=== PATIENT | female | born 1965 | race Caucasian/White ===

== ENCOUNTER 2023-04-16 06:47 | Outpatient (OUT) | payer BC, SELFPAY ==
--- NOTE | 2023-04-16 06:54 | MR_ITS ---
The [address] [address] Patient Name: MAT COOK MRN: [facility]:[id number] date: 1965 Sex: F Assigned Patient Location: MRI Current Patient Location: Accession/Order Number: [id number] Exam Date: 04/16/2023 07:05 Report Date: 04/17/2023 13:57 At the request of: MAGDA TAYLOR Procedure: MR head/brain wo/w con EXAM: MR head/brain wo/w con HISTORY: Acute intractable headache R51.9, Right leg weakness R29.898 COMPARISON: None. TECHNIQUE: Multiplanar, multisequence MR imaging of the head was performed prior to and following the administration of 13 mL of Dotarem contrast intravenously. FINDINGS: No restricted diffusion. No acute hemorrhage, mass effect, midline shift or extraaxial fluid collection. No ventriculomegaly. Expected flow voids are noted within the intracranial internal carotid, vertebral and basilar arteries. The cerebellopontine angles and internal auditory canals are unremarkable. Mild scattered foci of increased FLAIR signal are seen within the subcortical white matter. The pituitary gland and midline structures are unremarkable. Bone marrow signal is within normal limits. The orbits and globes are unremarkable. There has been bilateral cataract eye surgery. Mucosal thickening noted within the right sphenoid sinus and inferior right maxillary sinus. The mastoid air cells are unremarkable No abnormal enhancement. IMPRESSION: 1. Mild nonspecific FLAIR signal abnormalities of the subcortical white matter, compatible with chronic small vessel ischemic changes. A demyelinating disorder cannot be excluded. 2. No acute infarct, mass effect or abnormal enhancement. 3. Mucosal thickening in the right sphenoid sinus and inferior right maxillary sinus. Electronically authenticated by: KALE GIBBONS Date: 04/17/2023 13:57
== END 2023-04-16 06:48 | disposition home or self-care (01) ==
LOC: MRI 06:50
PROVIDERS: PCP Family Medicine; Visit Provider Family Medicine
DX: R51.9 Headache, unspecified (principal); R29.898 Other symptoms and signs involving the musculoskeletal system
CPT/HCPCS: 70553; A9575

== ENCOUNTER 2024-03-14 07:33 | Outpatient (OUT) | payer BC, SELFPAY ==
--- NOTE | 2024-03-14 07:35 | MM_ITS ---
Patient Name: MAT COOK MR#: [id number] : 1965 Exam Date: 03/14/2024 Ordering Doctor: DR Ariana Devlin M.D. RADIOLOGY REPORT PROCEDURE: MM TOMOSYNTHESIS SCREENING BI COMPARISON: MG MAMM SCREEN 3D WILIAM CAD, 03/03/2022. MG MAMM SCREEN WILIAM W CAD, 10/08/2020. MG MAMM SCREEN WILIAM W CAD, 10/04/2018. MG MAMM WILIAM SCRN W CAD DIG, 09/21/2015. INDICATIONS: Screening Calculator Name NCI Breast Cancer Risk Assessment Tool 5 Year Breast Cancer Risk 5.00% Lifetime Breast Cancer Risk 28.90% Personal Breast Cancer No Personal Ovarian Cancer No Treatments None Family Cancers Sister with kidney cancer at age 35; Aunt-maternal with breast cancer at age ~74; Sister with breast cancer at age 45; Mother with breast cancer at age 68; Aunt-maternal with breast cancer at age 74. LOCATION: The [facility] BREAST COMPOSITION: The breasts are heterogeneously dense,which may obscure small masses. FINDINGS: DIAGNOSTIC CATEGORY 2--BENIGN FINDING: RIGHT BREAST: No significant suspicious finding. Scattered benign-appearing calcifications are present. No significant change has occurred. LEFT BREAST: No significant suspicious finding. Scattered benign-appearing calcifications are present. No significant change has occurred. RECOMMENDATIONS: ROUTINE MAMMOGRAM AND CLINICAL EVALUATION IN 12 MONTHS. PLEASE NOTE: A NORMAL MAMMOGRAM DOES NOT EXCLUDE THE POSSIBILITY OF BREAST CANCER. A CLINICALLY SUSPICIOUS PALPABLE LUMP SHOULD BE BIOPSIED. Dictated by: Gallo Pimentel M.D. on 03/14/2024 at 08:35 Approved by: Gallo Pimentel M.D. on 03/14/2024 at 08:41
== END 2024-03-14 07:34 | disposition home or self-care (01) ==
LOC: MAMMO 07:33
PROVIDERS: PCP Family Medicine; Visit Provider Family Medicine
DX: Z12.31 Encounter for screening mammogram for malignant neoplasm of breast (principal); Z80.51 Family history of malignant neoplasm of kidney; Z80.3 Family history of malignant neoplasm of breast
CPT/HCPCS: 77063; 77067

== ENCOUNTER 2024-09-25 10:35 | Outpatient (OUT) | payer BC, SELFPAY ==
[2024-09-25 11:00] LABS: Basophils Absolute Auto 0.1 10^3/uL (0.0-0.1); Basophils Percent Auto 1.1 % (0.2-2.0); Eosinophils Absolute Auto 0.2 10^3/uL (0.0-0.7); Eosinophils Percent Auto 2.7 % (0.9-7.0); Hematocrit 42.7 % (36.0-48.0); Hemoglobin 13.9 g/dL (12.0-16.0); Immature Granulocytes Abs Auto 0.02 10^3/uL (0.00-0.03); Immature Granulocytes Pct Auto 0.2 % (0.0-0.5); Lymphocytes Percent Auto 23.4 % (20.5-60.0); Mean Corpuscular HGB Conc 32.6 g/dL (29.9-35.2); Mean Corpuscular Hemoglobin 29.4 pg (26.7-34.0); Mean Corpuscular Volume 90.5 fL (81.0-99.0); Monocytes Absolute Auto 0.9 10^3/uL (0.3-0.8); Neutrophils Absolute Auto 5.4 10^3/uL (1.4-6.5); Neutrophils Percent Auto 62.6 % (43.0-75.0); Platelet Count 302 10^3/uL (150-450); Red Blood Count 4.72 10^6/uL (4.20-5.40); Red Cell Distribution Width 12.7 % (11.0-15.0); White Blood Count 8.6 10^3/uL (4.0-11.0)
[2024-09-25 11:04] LABS: Creatinine Urine Random 340.03 mg/dL (20.00-300.00); Microalbum Creatinine Ratio Ur 4.4 mg/g (0.0-29.9); Microalbumin Urine Random 1.5 mg/dL (<=30.0)
[2024-09-25 11:09] LABS: Estimated Average Glucose 117 mg/dL; Glycohemoglobin A1C 5.7 % (4.5-6.2)
[2024-09-25 11:24] LABS: Alanine Aminotransferase 34 U/L (14-59); Albumin Globulin Ratio 0.9; Albumin Level 3.8 g/dL (3.4-5.0); Alkaline Phosphatase 116 U/L (46-116); Anion Gap 14.1; Aspartate Amino Transferase 21 U/L (15-37); BUN Creatinine Ratio 14.3; Bilirubin Total 0.5 mg/dL (0.2-1.0); Calcium 9.1 mg/dL (8.5-10.1); Chloride 105 mmol/L (98-107); Chol HDL Ratio 4.2; Cholesterol 275 mg/dL (<=200); Estimated GFR (African America >60 (>=60 mL/min/1.73m^2); Estimated GFR (Non-African Ame 54 (>=60 mL/min/1.73m^2); Glucose 101 mg/dL (74-106); HDL Cholesterol 65 mg/dL (40-60); Potassium 4.1 mmol/L (3.5-5.1); Sodium 144 mmol/L (136-145); Thyroid Stimulating Hormone 1.059 uIU/mL (0.358-3.740); Total Protein 7.8 g/dL (6.4-8.2); Triglycerides 178 mg/dL (<=150); VLDL CHOLESTEROL 35.6 mg/dL
== END 2024-09-25 10:36 | disposition home or self-care (01) ==
LOC: LAB 10:36
PROVIDERS: PCP Family Medicine; Visit Provider Family Medicine
DX: Z00.00 Encounter for general adult medical examination without abnormal findings (principal); E11.65 Type 2 diabetes mellitus with hyperglycemia
CPT/HCPCS: 36415; 80053; 80061; 82043; 82570; 83036; 84443; 85025

== ENCOUNTER 2024-12-31 10:43 | Outpatient (OUT) | payer BC, SELFPAY ==
--- NOTE | 2024-12-31 10:50 | XR_ITS ---
The [address] [address] Patient Name: MAT COOK MRN: [id number] date: 1965 Sex: F Assigned Patient Location: [facility] Current Patient Location: [facility] Accession/Order Number: [id number] Exam Date: 12/31/2024 11:19 Report Date: 12/31/2024 11:23 At the request of: MAGDA TAYLOR MD Procedure: XR abdomen 1V SINGLE VIEW ABDOMEN COMPARISON: None CLINICAL DATA: Left flank pain and hematuria. Supine views of the abdomen and pelvis were obtained. There is air and stool within the colon. There is no dilated small bowel. Both kidneys are obscured, greater on the right. There are no suspect radiopaque renal stones. There is asymmetry at the tip of the transverse process of L3 on the left. It is uncertain if this could be an overlying proximal ureteral stone. There are multiple calcifications within the pelvis on both sides. These could be phleboliths however a ureteral stone is difficult to exclude without comparisons. There are no soft tissue masses. There is minor degenerative change at the spine and SI joints. There are clips from prior cholecystectomy. XR/XR abdomen 1V IMPRESSION: CANNOT EXCLUDE PROXIMAL OR DISTAL LEFT URETERAL STONES. FOLLOW-UP WITH ULTRASOUND OR CT COULD BE CONSIDERED. Impression dictated by: Evangelina Martin M.D.12/31/2024 11:23 AM Dictation Location: [place] [address] Electronically authenticated by: [id number] Y Date: 12/31/2024 11:23
--- OUTSIDE RECORDS SUMMARY | 2024-12-31 10:59 | XMS_ITS | CCD ---
Author Organization [facility] Care Team Providers Care Custody Officer Name Role Phone PHYSICIAN, DEFAULT Admitting Unavailable PHYSICIAN, DEFAULT Attending Unavailable ARIANA TAYLOR Primary Care Unavailable KING VASQUEZ Attending Unavailable ARIANA TAYLOR Primary Care Physician CLAUDIA, DR ARIANA Orantes Admitting Unavailable TAYLOR, DR ARIANA Orantes Attending Unavailable CLAUDIA, DR ARIANA Orantes Primary Care Unavailable Zieblinda, Gallo Consulting Unavailable CLAUDIA, DR ARIANA Orantes Consulting Unavailable CLAUDIA, DR ARIANA Orantes Admitting Unavailable TAYLOR, DR ARIANA Orantes Attending Unavailable CLAUDIA, DR ARIANA Orantes Primary Care Unavailable OROGRANDE, DR KALE Cheung Consulting Unavailable CLAUDIA, DR ARIANA Orantes Consulting Unavailable OLLIE, DR DAMON Admitting Unavailable OLLIE, DR DAMON Attending Unavailable TAYLOR, DR ARIANA Orantes Primary Care Unavailable Zieblinda, Gallo Consulting Unavailable OLLIE, DR DAMON Consulting Unavailable CLAUDIA, DR ARIANA Orantes Admitting Unavailable TAYLOR, DR ARIANA Orantes Attending Unavailable CLAUDIA, DR ARIANA Orantes Primary Care Unavailable CLAUDIA, DR ARIANA Orantes Consulting Unavailable Ariana Taylor Unavailable Ariana Taylor MD Primary Care Provider [phone] [place] Attending UnavailARIANA [place] Primary Care Unavailable PRITESH DEL VALLE Attending Unavailable Allergies Allergy Classification Reported Allergen(s) Allergy Type Date of Onset Reaction(s) Facility (14 sources) Desvenlafaxine; Translations: [desvenlafaxine ] Drug Allergy 4 Unknown (qualifier value) [facility] (14 sources) metFORMIN; Translations: [metformin] Drug Allergy 4 Unknown (qualifier value) [facility] (4 sources) patient allergy list reviewed by nurse or physicia Propensity to adverse reactions 7 Comment:Done Lomography Other (4 sources) Allergies Reconciled Propensity to adverse reactions Unknown Lomography Other Medications Current Medications Medication Drug Class(es) Dates Sig (Normalized) Sig (Original) 0.5 ML tirzepatide 10 MG/ML Auto-Injector [Mounjaro] (11 sources) inject 0.5 mL by subcutaneous injection every week Mounjaro 5 MG/0.5ML INJECT 0.5 ML UNDER THE SKIN ONCE A WEEK for 84 Active inject 0.5 mL by sub cutaneous injection every week Mounjaro 5 MG/0.5ML INJECT 0.5 ML (5MG) UNDER THE SKIN ONCE A WEEK for 84 Active inject 0.5 mL by sub cutaneous injection every week Mounjaro 5 MG/0.5ML 1/2 (ONE HALF) ML Subcutaneous WEEKLY for 90 days Active acetaminophen 325 mg / HYDROcodone bitartrate 5 mg oral tablet (15 sources) Opioid Agonist Start: 03-25-2024 take 1 tablet by mouth every six hours as needed Hydrocodone-Acetaminophen Active 1 TAB PO Every 6 hours 18 05March 25, 2024 FreeTextSi tablet as needed Orally every 6 hrs; Note: Source Status: Start; Refills: 0; Qty: 28 Tablet; Provider: Claudia Orantes Start: 03-12-2024 End: 03-25-2024 take 1 tablet by mouth every six hours as needed Hydrocodone-Acetaminophen Discontinued 1 TAB PO Every 6 hours March 12, 2024 12:00am March 25, 2024 11:25am FreeTextSi tablet as needed Orally every 6 hrs; Note: Source Status: Start; Refills: 0; Qty: 28 Tablet; Provider: Claudia Orantes Start: 04-10-2023 take 1 tablet by nemesio th every six hours HYDROcodone-Acetaminophen 5-325 MG 1 tab let as needed Orally every 6 hrs for 7 days Mar, Active Start: 12-07-2022 take 1 tablet by nemesio th every eight hours HYDROcodone-Acetaminophen 5-325 MG 1 tab let as needed Orally every 8 hrs for 7 days Nov, Active Comment on above: Take 1 tablet by nemesio th every 8 hours as needed for pain. amitriptyline hydrochloride 25 mg oral tablet (1 source) Tricyclic Antidepressant Start: 02-25-20 21 take 1 mg by mouth once daily at bedtime amitriptyline 25 mg Tab mg tab(s), Oral, Once a day (at bedtime), Refills(s) 0 Start Date: 12/16/20 Status: Ordered atorvastatin 20 mg oral tablet (6 sources) HMG-CoA Reductase Inhibitor Start: 12-16-19 21 take 1 tablet by mouth once daily atorvastatin 20 mg Tab 20 mg = 1 tab(s), Oral, Daily, # 30 tab(s), Refills(s) 0 Start Date: 12/16/20 Status: Ordered 24 hr buPROPion hydrochloride 300 mg extended release oral tablet (4 sources) Aminoketone Start: 12-05-19 20 take 1 tablet by mouth once daily Wellbutrin SR 150 mg Tab-ER 150 mg = 1 tab(s), Oral, Daily, Depression Start Date: 12/05/19 Status: Ordered Start: 07-29-2009 bupropion hcl( WELLBUTRIN XL 300 MG 24 HR TAB) Take one(1) tablet daily. 0 07/29/2009 Active Comment on above: Take one(1) tablet d aily. 0.5 ml dulaglutide 1.5 mg/ml auto-injector (1 source) GLP-1 Receptor Agonist Start: 12-16-19 Trulicity Pen 0.75 mg/0.5 mL subcutaneous solution SubCutaneous, qWeek, Refills(s) 0 Start Date: 12/16/20 Status: Ordered FreeStyle Domenica 2 Stuart - (5 sources) FreeStyle Domenica 2 Stuart - use as directed for 28 Active FreeStyle Domenica 2 Sensor - (5 sources) FreeStyle Domenica 2 Sensor - as directed Active lisdexamfetamine dimesylate 50 mg oral capsule (18 sources) Central Nervous System Stimulant Start: 03-25-20 24 take 50 mg by mouth once daily Lisdexamfetamine Active 50 MG PO Daily March 25, 2024 Start: 12-31-2023 End: 03-25-2024 take 40 mg by mouth once daily Lisdexamfetamine Discontinued 40 MG PO Daily March 05, 2024 March 25, 2024 11:25am Start: 11-09-2023 take 1 capsule by [facility] every twenty-four hours Vyvanse 40 MG 1 capsule in the morning Orally Once a day for 30 days Oct, Active Start: 09-27-2023 take 1 capsule by mo uth every twenty-four hours Vyvanse 40 MG 1 capsule in the morning Orally Once a day for 30 days Sep, Active Start: 08-21-2023 take 1 capsule by mo uth every twenty-four hours Vyvanse 40 MG 1 capsule in the morning Orally Once a day for 30 days Jul, Active Start: 06-04-2023 take 1 capsule by mo uth every twenty-four hours Vyvanse 40 MG 1 capsule in the morning Orally Once a day for 30 days May, Active Start: 04-18-2023 take 1 capsule by mo uth once daily in the morning VYVANSE 40 mg capsule TAKE 1 CAPSULE BY MOUTH once a day IN THE MORNING FOR 30 DAYS 04/18/2023 Active Start: 03-13-2023 take 1 capsule by mo uth every twenty-four hours Vyvanse 40 MG 1 capsule in the morning Orally Once a day for 30 days February, Active Start: 02-01-2023 take 1 capsule by mo uth every twenty-four hours Vyvanse 40 MG 1 capsule in the morning Orally Once a day for 30 days Jan, Active Start: 12-28-2022 take 1 capsule by mo uth every twenty-four hours Vyvanse 40 MG 1 capsule in the morning Orally Once a day for 30 days Dec, Active Start: 11-21-2022 take 1 capsule by mo uth every twenty-four hours Vyvanse 40 MG 1 capsule in the morning Orally Once a day for 30 days Oct, Active Comment on above: TAKE 1 CAPSULE BY MO UTH once a day IN THE MORNING FOR 30 DAYS meloxicam 15 mg oral tablet (18 sources) Nonsteroidal Anti-inflammatory Drug Start: 01-03-2024 End: 01-03-2024 take 15 mg by mouth once daily Meloxicam Active 15 MG PO Daily January 03, 2024 9:55am Start: 12-18-2023 End: 01-03-2024 take 1 tablet by mouth once daily Meloxicam Discontinued 0 .ROUTE .COMPLEX December 18, 2023 2:12pm January 03, 2024 9:42am TAKE 1 TABLET BY MOUTH ONCE DAILY Start: 12-18-2023 End: 12-18-2023 take 15 mg by mouth once daily Meloxicam Discontinued 15 MG PO Daily December 18, 2023 1:00am December 18, 2023 2:12pm Start: 12-05-2019 take 1 tablet by nemesio th once daily Mobic 15 mg Tab 15 mg = 1 tab(s), Oral, Daily, Arthritis Start Date: 12/05/19 Status: Ordered Comment on above: Take 15 mg by mouth. mounjaro 5 mg/0.5ml solution pen-injector (1 source) inject 0.5 mL by subcutaneous injection every week Mounjaro 5 MG/0.5ML INJECT 0.5 ML UNDER THE SKIN ONCE A WEEK for 84 Active predniSONE 20 mg oral tablet (5 sources) Start: 3 take 2 tablets by mouth every twenty-four hours predniSONE 20 MG 2 tablets Orally Once a day for 5 days Nov, Active pregabalin 75 mg oral capsule (5 sources) Start: 3 take 1 capsule by mouth every twelve hours Lyrica 75 MG 1 capsule Orally Twice a day for 14 days Nov, Active Tirzepatide (2 sources) Start: 4 inject 0.5 mL by subcutaneous injection every week Tirzepatide (Mounjaro) 5 mg/0.5 mL pen injector Active 0 .ROUTE .COMPLEX 6 January 03, 2024 12:04pm INJECT 0.5 ML UNDER THE SKIN ONCE A WEEK Start: 01-03-2024 End: 01-03-2024 Tirzepatide (Mounjaro) 5 mg/ 0.5 mL pen injector Discontinued 5 MG SUBCUT every week January 03, 2024 12:00am January 03, 2024 12:04pm tiZANidine 4 mg oral tablet (15 sources) Central alpha-2 Adrenergic Agonist Start: 03-12-2024 End: 03-25-2024 take 1 tablet by mouth three times daily as needed Tizanidine Active 4 MG PO Three times daily March 25, 2024 11:10am FreeTextSi tablet as needed Orally Three times a day; Note: Source Status: Taking; Qty: 30 Tablet; Provider: Claudia Orantes Start: 12-07-2022 take 1 tablet by nemesio th every eight hours tiZANidine HCl 4 MG 1 tablet as needed Orally Three times a day for 10 days Nov, Active take 1 tablet by nemesio th every six hours as needed tiZANidine (ZANAFLEX) 4 mg tablet Take 4 mg by mouth every 6 hours as needed. 0 Active Comment on above: Take 4 mg by mouth e very 6 hours as needed. valACYclovir 1000 mg oral tablet (5 sources) Herpesvirus Nucleoside Analog DNA Polymerase Inhibitor, Herpes Simplex Virus Nucleoside Analog DNA Polymerase Inhibitor, Herpes Zoster Virus Nucleoside Analog DNA Polymerase Inhibitor Start: 12-11-2022 take 1 tablet by mouth every eight hours Valtrex 1 GM 1 tablet Orally tid for 7 days Nov, Active Completed/Discontinued Medications Medication Drug Class(es) Dates Sig (Normalized) Sig (Original) metFORMIN hydrochloride 500 mg oral tablet (2 sources) Biguanide Start: 07-29-2009 METFORMIN 500 MG TAB Take two(2) tablets daily. 0 07/29/2009 Active Comment on above: Take two(2) tablets daily. modafinil 200 mg oral tablet (2 sources) Sympathomimetic-l kushal Agent Start: 07-29-2009 modafinil(PROVIGIL 200 MG TAB) once daily 0 07/29/2009 Active Comment on above: once daily tirzepatide (MOUNJARO) 2.5 mg/0.5 mL pen injector (1 source) tirzepatide (MOUNJARO) 2.5 mg/0.5 mL pen injector Problems Active Problems Problem Classification Problem Date Documented Date Episodic/Chronic Anxiety disorders (13 sources) Anxiety; Translations: [Mixed anxiety and depressive disorder] 12-16-2020 Chronic Attention-deficit, conduct, and disruptive behavior disorders (1 source) Attention deficit hyperactivity disorder, predominantly inattentive type 12-16-2020 Chronic Attention-deficit, conduct, and disruptive behavior disorders (1 source) Adult attention deficit hyperactivity disorder ; Translations: [Attention-deficit hyperactivity disorder, unspecified type] 12-31-2023 Chronic Attention-deficit, conduct, and disruptive behavior disorders (1 source) Attention-deficit hyperactivity disorder, unspecified type; Translations: [Attention deficit disorder with hyperactivity] 03-25-2024 Chronic Diabetes mellitus with complications (20 sources) Type 2 diabetes mellitus with hyperglycemia; Translations: [Hyperglycemia due to type 2 diabetes mellitus] Onset: 01-31-2018 Chronic Diabetes mellitus without complication (13 sources) Type 2 diabetes mellitus; Translations: [Type 2 diabetes mellitus with hyperglycemia] 12-16-2020 Chronic Disorders usually diagnosed in infancy, childhood, or adolescence (20 sources) Other specified behavioral and emotional disorders with onset usually occurring in childhood and adolescence; Translations: [Behavioral and emotional disorder with onset in childhood] Chronic Gout and other crystal arthropathies (17 sources) Gout; Translations: [Gout, unspecified] Onset: 11-04-2018 12-16-2020 Chronic Mood disorders (20 sources) Depressive disorder; Translations: [Major depression, single episode] Onset: 11-12-2013 12-16-2020 Chronic Other circulatory disease (4 sources) Elevated blood-pressure reading without diagnosis of hypertension; Translations: [Elevated blood-pressure reading, without diagnosis of hypertension] Episodic Other connective tissue disease (2 sources) Other symptoms and signs involving the musculoskeletal system Episodic Other liver diseases (12 sources) Elevated liver enzymes level; Translations: [Abnormal levels of other serum enzymes] Episodic Other lower respiratory disease (1 source) Dyspnea on exertion 12-16-2020 Episodic Other lower respiratory disease (16 sources) Dyspnea; Translations: [Shortness of breath] Episodic Other nervous system disorders (1 source) Neuropathy of lower limb; Translations: [Lesion of lateral popliteal nerve, right lower limb] 05-08-2023 Chronic Other non-traumatic joint disorders (1 source) Hip pain 12-16-2020 Episodic Other non-traumatic joint disorders (20 sources) Arthralgia of the lower leg; Translations: [Pain in left knee] Onset: 07-02-2017 Episodic Other nutritional; endocrine; and metabolic disorders (2 sources) Morbid obesity; Translations: [Morbid (severe) obesity due to excess calories] Onset: 07-29-2009 07-29-2009 Chronic Other nutritional; endocrine; and metabolic disorders (8 sources) Obesity; Translations: [Obesity, unspecified] Onset: 03-18-2015 Chronic Other nutritional; endocrine; and metabolic disorders (8 sources) Body mass index 40+ - severely obese; Translations: [Body mass index (BMI) 40.0-44.9, adult] Onset: 01-10-2018 Chronic Other nutritional; endocrine; and metabolic disorders (16 sources) Obese class II; Translations: [Body mass index 39.0-39.9, adult] Onset: 01-10-2018 Chronic Other nutritional; endocrine; and metabolic disorders (4 sources) Body mass index 30+ - obesity; Translations: [Body mass index 36.0-36.9, adult] Onset: 03-27-2019 Chronic Other nutritional; endocrine; and metabolic disorders (4 sources) Obese class I; Translations: [Body mass index (BMI) 33.0-33.9, adult] Chronic Other screening for suspected conditions (not mental disorders or infectious disease) (7 sources) Liver enzymes abnormal; Translations: [Encounter for screening for osteoporosis] Onset: 03-03-2022 12-16-2020 Episodic Residual codes; unclassified (17 sources) Insomnia; Translations: [Insomnia, unspecified] Onset: 03-02-2016 12-16-2020 Episodic Skin and subcutaneous tissue infections (20 sources) Pilonidal cyst; Translations: [Pilonidal cyst without abscess] Episodic Spondylosis; intervertebral disc disorders; other back problems (2 sources) Cervical arthritis; Translations: [Unspecified inflammatory spondylopathy, cervical region] 03-25-2024 Chronic Viral infection (14 sources) Postherpetic neuralgia; Translations: [Other postherpetic nervous system involvement] Episodic Past or Other Problems Problem Classification Problem Date Documented Da te Episodic/Chronic Cardiac dysrhythmias (4 sources) Palpitations; Translations: [Palpitations] Onset: 11-04-2018 Episodic Diabetes mellitus without complication (4 sources) Hyperglycemia; Translations: [Hyperglycemia, unspecified] Onset: 03-01-2015 Episodic Headache; including migraine (1 source) Headache; including migraine Nonspecific chest pain (4 sources) Chest pain; Translations: [Chest pain, unspecified] Onset: 09-13-2015 Episodic Other connective tissue disease (4 sources) Spasm; Translations: [Spasm of muscle] Onset: 03-27-2019 Episodic Other non-traumatic joint disorders (4 sources) Arthralgia of the pelvic region and thigh; Translations: [Pain in joint, pelvic region and thigh] Onset: 03-02-2016 Episodic Other nutritional; endocrine; and metabolic disorders (4 sources) Body mass index 25-29 - overweight; Translations: [Body mass index 27.0-27.9, adult] Onset: 01-10-2018 Episodic Other skin disorders (4 sources) Alopecia; Translations: [Nonscarring hair loss, unspecified] Onset: 10-16-2018 Episodic Residual codes; unclassified (4 sources) Other specified health status; Translations: [OTHER SPECIFIED HEALTH STATUS] Onset: 04-28-2022 Episodic Residual codes; unclassified (1 source) Family history of malignant neoplasm of breast; Translations: [FAMILY HX MALIG NEOPLASM OF BREAST] Onset: 03-08-2022 Episodic Residual codes; unclassified (1 source) Family history of malignant neoplasm of kidney; Translations: [FAM HX MALIGNANT NEOPLASM KIDNEY] Onset: 03-08-2022 Episodic Spondylosis; intervertebral disc disorders; other back problems (10 sources) Radiculopathy, cervical region; Translations: [Cervicalgia] Onset: 02-23-2017 Episodic Unclassified (1 source) Frequent headaches R51.9 Results Test Name Value Interpretation Reference Range Facility [facility]ET[facility] ([id number]) 1965 F Date Time Provider Department 05/09/23 [facility] During your visit today, we recorded the following information about you: Lilian Skinner RN 05/09/2023 9:22 AM Signed Office notes faxed to pts [facility] Dr Ariana Taylor [phone] Lilian Skinner RN [facility] [place] Allergies As of Date: 05/09/2023 (No Known Allergies) Date Reviewed: 05/07/2023 Reviewed by: Lisa Choi Ma - Fully Assessed Reason for Visit: Patient Update [[id number]] Prescriptions as of 05/11/2023 - meloxicam (MOBIC) 15 mg tablet Take 15 mg by mouth. - tirzepatide (MOUNJARO) 2.5 mg/0.5 mL pen injector - VYVANSE 40 mg capsule TAKE 1 CAPSULE BY MOUTH once a day IN THE MORNING FOR 30 DAYS - tiZANidine (ZANAFLEX) 4 mg tablet Take 4 mg by mouth every 6 hours as needed. - HYDROcodone-acetamin ophen (NORCO) 5-325 mg per tablet Take 1 tablet by mouth every 8 hours as needed for pain. - bupropion hcl(WELLBUTRIN XL 300 MG 24 HR TAB) Take one(1) tablet daily. - modafinil(PROVIGIL 200 MG TAB) once daily - METFORMIN 500 MG TAB Take two(2) tablets daily. Problem List As Of Date 05/09/2023 Noted Resolved Morbid Obesity [E66.01] 07/29/2009 Encounter Status:Closed by LILIAN SKINNER on 05/11/23 [facility] 05-07-2023 CNOV Office Visit (CHADS) KETURAH COOK ([id number]) 1965 F Date Time Provider Department 05/07/23 10:00 AM [facility] During your visit today, we recorded the following information about you: Pulse Blood pressure Weight Height 88/minute 132/82 68.9 kg 1.676 m Shad Rouse MD 05/08/2023 6:26 AM Signed Impression: This is Ms. Keturah Joseph Rockham, a 57 year old female who presents to the [facility] clinic with the chief complaint of right leg numbness, sensation of leg weakness. Approximately 8-week history of right lower extremity numbness. Also notes right foot drop. Tripping. No major low back pain issues. No sciatica history. Upper extremities are fine. Nothing like this before. Approximately 75 pound weight loss since July 2022. Does engage in habitual leg crossing. On exam, has numbness over the lateral aspect of the right lower extremity distal to the knee. Weakness of dorsiflexion and ankle eversion is noted on the right. Unable to heel walk on the right. Impression is for peroneal neuropathy, right leg. Plan: - Recommend discussion with primary care about physical therapy. - We will tentatively plan for watchful waiting. Avoid leg crossing. - Could consider EMG for prognostication purposes. - Reach out with any questions or concerns. MyChart is an excellent way to get ahold of our team. Shad Rouse MD Staff, [facility] [place] HPI: This is Ms. Keturah Cook, a 57 year old female who presents to the [facility] clinic with the chief complaint of right leg numbness, sensation of leg weakness. Review: Numbness right foot and leg. Abnormal MRI brain. MRI brain completed 04/16/2023 Report scanned into our system 1. Mild nonspecific FLAIR signal abnormalities of the subcortical white matter, compatible with chronic small vessel ischemic changes. Demyelinating disorder cannot be excluded. 2. No acute infarct, mass effect or abnormal enhancement. 3. Mucosal thickening in the right sphenoid sinus and inferior right maxillary sinus. CC: 2 month history of right leg numbness Both legs feel weak (quiver) Today: 2 month history of right leg numbness Both legs feel weak (quiver) Also right foot drop Trips, no falling Just noticed this the last few months Noticed with the numbness Also For 1 year ball of foot numb Has been overweight Recently with weight loss No major low back pain issues No sciatica Arms are fine No arm weakness that she notices No arm numbness or tingling Nothing like this before Weakness gets worse over the course of the day Better in the AM when rested Significant weight loss since July 2022 227 > 152 Was 257 several years ago Crosses her legs most of the time Prefers the right, does switch it up No history of weakness No history of numbness Cataract surgery OU 2019, uses readers No clear optic neuritis history clinically Struggles with heat, done Works less physical job Reports bladder urgency that comes and goes Past history per chart review includes: Past medical history, problem list: Diabetes Past surgical history: Hysterectomy, cholecystectomy Family history: Social history: Non-smoker No alcohol OBJECTIVE: PHYSICAL EXAM: Neurological: Mental Status: Alert. Speech fluent. Cogent. Responds appropriately. Cranial Nerves: CNII: Visual sneed intact. No red desaturation. CNIII, IV, : Pupils are reactive to light. No RAPD. Eyes cross midline. CN V: Facial sensation intact bilaterally to touch. CN VII: Smile is symmetric. CN VIII: Hearing intact to finger rub bilaterally. CN IX: No hypophonia. Motor: Bulk is normal in the upper and lower extremities. Tone is normal in the upper and lower extremities. Individual muscle group testing: Right Left Shoulder abduction 5 5 Elbow flexion 5 5 Elbow extension 5 5 Wrist extension 5 5 Wrist flexion Finger extension 5 5 Distal finger flexion 5 5 Thumb abduction Hip flexion 5 5 Knee extension Approx 5 Approx 5- to 5 Knee flexion Approx 5 5-? Dorsiflexion 3- 5 Plantarflexion 5 5 Ankle inversion Approx 5 5 Ankle eversion 4+ 5 Toe walks. Reflexes: R L Biceps 2 1-2 Patellar 2 2 Ankle Tr? 1 Coordination: FNF intact bilaterally. Sensation: Intact to sharp in the distal upper and lower extremities. Some numbness right lateral calf. Rhomberg negative. Gait: Stands with arms crossed. Ambulates easily in the clinic wade. Normal, narrow-based gait. Able to tandem walk. Less arm swing on right. Turns easily. Hops on left foot, right foot perhaps less stable. Toe walks, right foot less stable. Cannot heel walk on the right. This note was partially created using voice recognition software and is inhere (more content not included)... [facility] KET[facility] C[facility] ([id number]) 1965 F Date Time Provider Department 04/27/23 [facility] During your visit today, we recorded the following information about you: Jersey Caro F 04/27/2023 11:54 AM Signed Received fax from [facility] with a MRI Brain report dated 04/16/23. Initial appointment with provider is scheduled for 05/07/23. Scanned report into [employer]. Allergies As of Date: 04/27/2023 (No Known Allergies) Date Reviewed: 07/29/2009 Reviewed by: Latia Mckenzie Reason for Visit: Received Outside Medical Records [[id number]] Prescriptions as of 07/05/2023 - meloxicam (MOBIC) 15 mg tablet Take 15 mg by mouth. - tirzepatide (MOUNJARO) 2.5 mg/0.5 mL pen injector - VYVANSE 40 mg capsule TAKE 1 CAPSULE BY MOUTH once a day IN THE MORNING FOR 30 DAYS - tiZANidine (ZANAFLEX) 4 mg tablet Take 4 mg by mouth every 6 hours as needed. - HYDROcodone-acetamin ophen (NORCO) 5-325 mg per tablet Take 1 tablet by mouth every 8 hours as needed for pain. - bupropion hcl(WELLBUTRIN XL 300 MG 24 HR TAB) Take one(1) tablet daily. - modafinil(PROVIGIL 200 MG TAB) once daily - METFORMIN 500 MG TAB Take two(2) tablets daily. Problem List As Of Date 04/27/2023 Noted Resolved Morbid Obesity [E66.01] 07/29/2009 Encounter Status:Closed by JERSEY CARO on 07/05/23 Normal [facility] XR CSPINE 2_3 VIEWSon 2022 XR CSPINE 2_3 VIEWS EXAMINATION: XR CSPINE 2_3 VIEWS HISTORY: Cervical radiculopathy ; neck and left arm pain for one month; no known injury COMPARISON: No relevant comparison available. FINDINGS: BONES: Reversal normal lordotic curvature. Mild grade 1 anterior listhesis of C3 on 4, C4-C5. Mild grade 1 retrolisthesis of C5 on C6. No fracture or bone lesion. Moderate degenerative facet arthropathy at most levels. DISC SPACES: Mild narrowing C5-C6. PARASPINOUS: Negative. No paraspinous abnormality is seen. OTHER: Negative. IMPRESSION: 1. No appreciable acute abnormality. 2. Overall moderate degenerative changes of cervical spine, predominantly involving degenerative changes of the facet joints. Consider MRI for further evaluation. Electronically authenticated by: GALLO GUPTA Date: 2022-12-08 09:38 Normal [facility] NICOTINE METABOLITESon 11-25 Cotinine <1.0 Normal [facility] Comment on above: Result Comment: This test was developed and its performance characteristics determined by [facility]. It has not been cleared or approved by the Food and Drug Administration. Cotinine levels greater than 20.0 are consistent with the use of tobacco or tobacco cessation products. Performed By: #### N ICTBLD #### [facility] [address] [place] [address] Dr. Deepti Smith Nicotine <1.0 Normal [facility] Comment on above: Result Comment: This test was developed and its performance characteristics determined by [facility]. It has not been cleared or approved by the Food and Drug Administration. Nicotine levels greater than 2.0 are consistent with the use of tobacco or tobacco cessation products. Performed By: #### N ICTBLD #### [facility] [address] [place] [address] Dr. Deepti Smith GLYCOHEMOGLOBIN A1Con 2022 ADA RECOMMENDATION SEE BELOW Normal [facility] Comment on above: Result Comment: ADA RECOMMENDED LIMIT 4.0 - 6.0 ADA THERAPEUTIC TARGET < 7.0 ACTION SUGGESTED > 7.0 Performed By: #### A 1C #### [facility] [address] [place] [address] Dr. Deepti Smith Glucose [Mass/Vol] 111 mg/dL Normal [facility] Comment on above: Performed By: #### A 1C #### [facility] [address] [place] [address] Dr. Deepti Smith HbA1c (Bld) [Mass fraction] 5.5 % Normal 4.5-6.2 [facility] Comment on above: Performed By: #### A 1C #### [facility] [address] [place] [address] Dr. Deepti Smith LIPID PROFILEon 11-18-2022 CHOL-HDL RATIO NORM SEE BELOW Normal [facility] Comment on above: Result Comment: 3.3 - 4.4 LOW RISK 4.4 - 7.1 AVERAGE RISK 7.1 - 11.0 MODERATE RISK >11.0 HIGH RISK Performed By: #### L IPID #### [facility] [address] [place] [address] Dr. Deepti Smith Cholesterol [Mass/Vol] 183 mg/dL Normal <=200 [facility] Comment on above: Performed By: #### L IPID #### [facility] [address] [address] [address] Deepti Smith Cholesterol in HDL [Mass/Vol] 45 mg/dL Normal 40-60 [facility] Comment on above: Performed By: #### L IPID #### [facility] [address] [address] [address] Deepti Smith Cholesterol in LDL [Mass/Vol] 115.8 mg/dL Normal [facility] Comment on above: Performed By: #### L IPID #### [facility] [address] [address] [address] Deepti Smith Cholesterol.total/Ch olesterol in HDL [Mass ratio] 4.1 {ratio} Normal [facility] Comment on above: Performed By: #### L IPID #### [facility] [address] [address] [address] Deepti Smith HDL NORMAL > or = 60 mg/dl - LOW CARDIOVASCULAR RISK <40 mg/dl - HIGH CARDIOVASCULAR RISK Normal [facility] Comment on above: Performed By: #### L IPID #### [facility] [address] [address] [address] Deepti Smith LDL CALC NORMAL SEE BELOW Normal [facility] Comment on above: Result Comment: <100 mg/dl OPTIMAL 100 - 129 mg/dl NEAR OR ABOVE OPTIMAL 130 - 159 mg/dl BORDERLINE HIGH 160 - 189 mg/dl HIGH >190 mg/dl VERY HIGH Performed By: #### L IPID #### [facility] [address] [address] [address] Deepti Smith Triglyceride [Mass/Vol] 111 mg/dL Normal <=150 [facility] Comment on above: Performed By: #### L IPID #### [facility] [address] [address] [address] Deepti Smith VLDL CALC 22.2 mg/dL Normal [facility] Comment on above: Performed By: #### L IPID #### [facility] [address] [address] [address] Deepti Smith CALCIUMon 04-28-2022 Calcium [Mass/Vol] 9.0 mg/dL Normal 8.5-10.1 [facility] Comment on above: Performed By: #### LUCY LEAL #### [facility] [address] [place] [address] Dr. Deepti Smith CREATININEon 04-28-2022 Creatinine [Mass/Vol] 0.81 mg/dL Normal 0.55-1.02 [facility] Comment on above: Performed By: #### Jose DOMINGUEZ CA #### [facility] [address] [place] [address] Dr. Deepti Smith EGFR-AF TRISTANIAN >60 Normal >=60 [facility] Comment on above: Performed By: #### LUCY LEAL #### [facility] [address] [place] [address] Dr. Deepti Smith EGFR-NON AF TRISTANIAN >60 Normal >=60 [facility] Comment on above: Performed By: #### LUCY LEAL #### [facility] [address] [place] [address] Dr. Deepti Smith VITAMIN D 25 OHon 04-28-2022 VIT D 25-OH 47.4 ng/mL Normal [facility] Comment on above: Performed By: #### Skye ITAD #### [facility] [address] [place] [address] Dr. Deepti Smith VIT D RANGES SEE BELOW Normal [facility] Comment on above: Result Comment: <20 ng/mL Vit D deficient 20 - <30 ng/mL Vit D insufficient 30 - 100 ng/mL Vit D sufficient >100 ng/mL Potential Toxicity Performed By: #### V ITAD #### [facility] [address] [place] [address] Dr. Deepti Smith XR DEXA BONE DENSITYon 04-28 XR DEXA BONE DENSITY EXAMINATION: XR DEX A BONE DENSITY, 04/28/2022 8:54 AM EDT HISTORY: Patient status finding COMPARISON: None. TECHNIQUE: Dual-energy X-ray absorptiometry (DEXA) bone density study performed for the axial skeleton. FINDINGS: SPINE ANALYSIS: Average bone mineral density is 1.452 g/cm2. T-score (standard deviation relative to young adult mean): 2.3 . HIP ANALYSIS: Lowest bone mineral density is within the left femoral neck, 1.052 g/cm2. T-score (standard deviation relative to young adult mean): 0.1 . IMPRESSION: [employer] Classification: Normal - Low Fracture Risk Electronically authenticated by: GALLO GUPTA Date: 2022-04-28 16:[address] [facility] MAMM SCREEN 3D WILIAM CADon 03-03-2022 MG MAMM SCREEN 3D WILIAM CAD Patient: KETURAH COOK Exam Date: 03/03/2022 : 1965 Gender:F Ordering : DR ARIANA TAYLOR M.D. Admission #: [id number] Family : Order #: [id number] CLICK HERE TO VIEW EXAM RADIOLOGY REPORT PROCEDURE: MAMMOGRAM SCREENING 3D BILATERAL CAD COMPARISON: MG MAMM SCREEN WILIAM W CAD, 10/08/2020. MG MAMM SCREEN WILIAM W CAD, 10/04/2018. INDICATIONS: Screening mammography Calculator Name NCI Breast Cancer Risk Assessment Tool 5 Year Breast Cancer Risk 4.60% Lifetime Breast Cancer Risk 29.90% Personal Breast Cancer No Personal Ovarian Cancer No Treatments None Family Cancers Sister with kidney cancer at age 35; Aunt-maternal with breast cancer at age 74; Sister with breast cancer at age 45; Mother with breast cancer at age 68; Aunt-maternal with breast cancer at age 74. LOCATION: [facility] BREAST COMPOSITION: Heterogeneously dense, which may obscure small masses. FINDINGS: DIAGNOSTIC CATEGORY 2--BENIGN FINDING. NO CHANGE FROM COMPARISON. Scattered benign-appearing nodules are present. Scattered benign-appearing calcifications are present. Scattered benign-appearing lymph nodes are present. RIGHT BREAST: No significant suspicious finding. LEFT BREAST: No significant suspicious finding. RECOMMENDATIONS: ROUTINE MAMMOGRAM AND CLINICAL EVALUATION IN 12 MONTHS. PLEASE NOTE: A NORMAL MAMMOGRAM DOES NOT EXCLUDE THE POSSIBILITY OF BREAST CANCER. A CLINICALLY SUSPICIOUS PALPABLE LUMP SHOULD BE BIOPSIED. Dictated by: Kale Gonzalez MD on 03/03/2022 at 13:46 Approved by: Kale Gonzalez MD on 03/03/2022 at 13:48 Normal [facility] Vaginitis/Vaginosis, DNA Pro beon 02-13-2022 Rox sp rRNA Probe Ql (Vag fld) Positive Abnormal Negative [facility] Comment on above: Performed By: #### [id number] #### [facility] [address] [place] [address] G. vaginalis rRNA Probe Ql (Genital specimen) Negative Invalid Interpretation Code Negative [facility] Comment on above: Performed By: #### [id number] #### [facility] [address] [place] [address] T. vaginalis rRNA Probe Ql (Genital specimen) Negative Invalid Interpretation Code Negative [facility] Comment on above: Result Comment: A du plicate report has been generated due to demographic update of the patient's Date of , Age, Gender, and/or Specimen Date. Please review patient results, reference intervals, and calculated results that may have been affected by this change. Performed at: [facility] [id number] PhD Cyn Koo Performed By: #### 3 [id number] #### [facility] [address] [place] [address] Physician Orderon 02-09-2022 Physician Order [id number] #1.00CD:127 Normal [facility] Physician Orderon 02-08-2022 Physician Order [id number] #1.00CD:127 Normal [facility] Vital Signs Date Time Vital Sign Value Performing Clinician Facility 03-25-2024 [id number] Body height 167.64 cm [facility] 03-25-2024 10:54-0400 Body mass index (BMI) [Ratio] 30.7 kg/m2 [facility] 03-25-2024 10:54040 Body weight 86.18 kg [facility] 03-25-2024 10:54-0400 Diastolic blood pressure 80 mm[Hg] [facility] 03-25-2024 10:54-0400 Heart rate 92 /min [facility] 03-25-2024 10:54-0400 Systolic blood pressure 130 mm[Hg] [facility] 05-07-2023 09:48-0400 Body height 167.6 cm Shad Rouse MD Work Phone: [facility] 05-07-2023 09:48-0400 Body weight 68.95 kg Shad Rouse MD Work Phone: [facility] 05-07-2023 09:48-0400 Diastolic blood pressure 82 mm[Hg] Shad Rouse MD Work Phone: [facility] 05-07-2023 09:48-0400 Heart rate 88 /min Shad Rouse MD Work Phone: [facility] 05-07-2023 09:48-0400 SaO2% (BldA) [Mass fraction] 100 % Shad Rouse MD Work Phone: [facility] 05-07-2023 09:48-0400 Systolic blood pressure 132 mm[Hg] Shad Rouse MD Work Phone: [facility] 04-10-2023 10:15-0400 Body height 167.64 cm Ariana Taylor Other [facility] Other 04-10-2023 10:15-0400 Body mass index (BMI) [Ratio] 24.05 kg/m2 Ariana Taylor Other [facility] Other 04-10-2023 10:15-0400 Body weight 67.59 kg Ariana Taylor Other [facility] Other 04-10-2023 10:15-0400 Diastolic blood pressure 78 mm[Hg] Ariana Taylor Other [facility] Other 04-10-2023 10:15-0400 Systolic blood pressure 119 mm[Hg] Ariana Taylor Other [facility] Other 12-11-2022 16:00-0500 Body height 167.64 cm Ariana Taylor Other [facility] Other 12-11-2022 16:00-0500 Body mass index (BMI) [Ratio] 30.18 kg/m2 Ariana Taylor Other [facility] Other 12-11-2022 16:00-0500 Body weight 84.82 kg Ariana Taylor Other [facility] Other 12-11-2022 16:00-0500 Diastolic blood pressure 80 mm[Hg] Ariana Taylor Other [facility] Other 12-11-2022 16:00-0500 SaO2% (BldA) [Mass fraction] 98 % Ariana Taylor Other [facility] Other 12-11-2022 16:00-0500 Systolic blood pressure 126 mm[Hg] Ariana Taylor Other [facility] Other 12-07-2022 15:45-0500 Body height 167.64 cm Ariana Taylor Other [facility] Other 12-07-2022 15:45-0500 Body mass index (BMI) [Ratio] 30.18 kg/m2 Ariana Taylor Other [facility] Other 12-07-2022 15:45-0500 Body weight 84.82 kg Ariana Taylor Other [facility] Other 12-07-2022 15:45-0500 Diastolic blood pressure 80 mm[Hg] Ariana Taylor Other [facility] Other 12-07-2022 15:45-0500 SaO2% (BldA) [Mass fraction] 97 % Ariana Taylor Other [facility] Other 12-07-2022 15:45-0500 Systolic blood pressure 122 mm[Hg] Ariana Claudia Other [facility] Other Encounters Encounter Date Encounter Type Care Provider Facility Start: 03-25-2024 End: 03-25-2024 ambulatory [facility] Work Phone: Start: 03-25-2024 End: 03-25-2024 Patient encounter procedure [facility] Work Phone: Start: 12-31-2023 Non-patient / Non-visit [facility] Work Phone: Start: 11-09-2023 End: 11-09-2023 ambulatory Ariana Taylor Other [facility] Other Start: 11-09-2023 Telephone encounter Ariana Claudia [facility] Start: 09-27-2023 End: 09-27-2023 ambulatory Ariana Claudia Other [facility] Other Start: 09-27-2023 Telephone encounter Ariana Claudia [facility] Start: 09-04-2023 End: 09-04-2023 ambulatory PRITESH DEL VALLE Not Available Start: 08-21-2023 End: 08-21-2023 ambulatory Ariana Taylor Other [facility] Other Start: 08-21-2023 Telephone encounter Ariana Taylor [facility] Start: 06-04-2023 End: 06-04-2023 ambulatory Ariana Taylor Other [facility] Other Start: 06-04-2023 Telephone encounter Ariana Claudia [facility] Start: 05-07-2023 End: 05-07-2023 ambulatory SHAD ROUSE Facility:[facility] Start: 05-07-2023 End: 05-07-2023 Patient encounter procedure Shad Rouse MD Work Phone: Neurology Comment on above: Peroneal neuropathy, right (Primary Dx) Start: 04-27-2023 Telephone encounter Shad Rouse MD Work Phone: Neurology Comment on above: [facility]ceived [facility] Start: 04-23-2023 End: 04-23-2023 ambulatory Ariana Taylor Other [facility] Other Start: 04-23-2023 Telephone encounter Ariana Taylor [facility] Start: 04-18-2023 End: 04-18-2023 ambulatory Ariana Taylor Other [facility] Other Start: 04-18-2023 Telephone encounter Ariana Taylor [facility] Start: 04-10-2023 End: 04-10-2023 ambulatory Ariana Taylor Other [facility] Other Start: 04-10-2023 Office outpatient vi sit 15 minutes Ariana Taylor [facility] Start: 02-01-2023 End: 02-01-2023 ambulatory Ariana Taylor Other [facility] Other Start: 02-01-2023 Telephone encounter Ariana Taylor [facility] Start: 12-11-2022 End: 12-11-2022 ambulatory Ariana Taylor Other [facility] Other Start: 12-11-2022 Office outpatient vi sit 15 minutes Ariana Taylor [facility] Start: 12-11-2022 Telephone encounter Ariana Taylor [facility] Start: 12-07-2022 End: 12-08-[address] ARIANA TAYLOR Facility: Start: 12-07-2022 Office outpatient vi sit 15 minutes Ariana Taylor [facility] Start: 11-28-2022 End: 11-28-2022 ambulatory Ariana Taylor Other [facility] Other Start: 11-28-2022 Telephone encounter Ariana Taylor [facility] Start: 11-21-2022 Encounter for genera l adult medical examination without abnormal findings DR ARIANA TAYLOR [facility] Start: 11-18-2022 End: 11-19-[address] ARIANA TAYLOR Facility:[facility] Start: 11-18-2022 End: 11-19-2022 Encounter for general adult medical examination without abnormal findings DR ARIANA TAYLOR Facility:[facility] Start: 09-26-2022 Adult health examination Ariana Taylor Other [facility] Other Start: 04-28-2022 End: 04-29-[address] NELSON LEVIN Facility:[facility] Start: 03-03-2022 End: 03-04-[address] ARIANA TAYLOR Facility:[facility] Start: 02-09-2022 End: 02-09-2022 Lab Drop off Jose J Peoples [facility] Start: 01-28-2022 End: 01-28-2022 Emergency department patient visit ARIANA TAYLOR [facility] Start: 11-07-2018 End: 11-08-2018 Patient encounter procedure DEFAULT PHYSICIAN Facility:[facility] Procedures Date Procedure Procedure Detail Performing Clinician Start: 12-29-2019 Cataract extraction and insertion of intraocular lens Jose J Peoples Comment on above: left Start: 12-08-2019 Cataract extraction and insertion of intraocular lens Jose J Peoples Comment on above: right Start: 08-26-2015 Screening for malign ant neoplasm of breast Ariana Taylor Other Start: 01-09-2014 Laboratory test resu lt abnormal Ariana Taylor Other Start: 07-15-2009 Lipid 1996 panel - S leny or Plasma Shad Rouse MD Work Phone: Plan of Treatment Date Care Activity Detail Author Start: 06-22-2023 Influenza vaccination C [facility] Start: 10-22-2022 DEPRESSION ASSESSMENT DEPRESSION ASS [facility] Start: 09-22-2021 COVID-19 VACCINE (4 - Pfizer series) COVID-19 VACCINE (4 - Pfizer series) [facility] Start: 2017 SHINGRIX VACCINE (1 of 2) SHINGRIX V ACCINE (1 of 2) [facility] Start: 07-15-2014 Lipid 1996 panel - S leny or Plasma Lipid Screening [facility] Start: 07-15-2014 LIPID SCREEN LIPID SCREEN [facility] Start: 2012 COLOGUARD (FIT-DNA) COLOGUARD (FIT-D NA) [facility] Start: 2012 Colonoscopy COLONOSCOPY [facility] Start: 2012 COLORECTAL CANCER SCREENING COLORECTAL CANCER SCREENING [facility] Start: [address] COLONOGRAPHY [facility] Start: 2012 DIABETES SCREEN DIABETES SCREEN [facility] Start: 2012 Diabetes Screening Diabetes Screenin g [facility] Start: 2012 FECAL OCCULT BLOOD FECAL OCCULT BLOO D [facility] Start: 2012 SIGMOIDOSCOPY SIGMOIDOSCOPY [facility] Start: 2007 Mammography [facility] Start: 1997 HPV TESTING HPV TESTING [facility] Start: 1988 PAP TESTING PAP TESTING [facility] Start: 1986 Urine microalbumin profile [facility] Start: 1985 HEPATITIS C SCREENING HEPATITIS C SC REENING [facility] Start: 1985 HIV SCREENING HIV SCREENING [facility] Start: 1965 HEPATITIS B (1 of 3 - 3-dose series) HEPATITIS B (1 of 3 - 3-dose series) [facility] Start: 1965 Hepatitis B Vaccine (1 of 3 - 3-dose series) Hepatitis B Vaccine (1 of 3 - 3-dose series) [facility] Payers Date Payer Category Payer Unknown 1965 Unknown [id number] [id number] 1965 Unknown [id number] [id number] 1965 Unknown [id number] 2.16.84 [id number] 1965 Unknown [id number] [id number] [id number] 1965 Unknown [id number] 2.16.84 [id number] 1965 Unknown [id number] 2.16.84 [id number] 1965 Unknown [id number] 1957 Unknown [id number] 1957 Unknown [id number] Social History Date Type Detail Facility Tobacco smoking status Unknown if ever sm [facility] Start: 05-07-2023 Sex Assigned At Female F [facility] Start: 04-10-2023 End: 05-07-2023 Tobacco smoking status UTIS Ex-smoker [facility] History of tobacco use Current smoker [facility] History of tobacco use Cigarette Smoker C [facility] Start: 05-07-2023 Tobacco use and exposure Smokeless tobacco non-user [facility] Start: 05-07-2023 History of Social function [facility] National Score (1-10 0), lower number is lower risk 79 [facility] Start: 1965 Sex Assigned At Female C [facility] Start: 04-19-2023 Gender identity Identifies as female gender (finding) [facility] Start: 04-19-2023 Sexual orientation Heterosexual (fin ding) [facility] Tobacco smoking stat [facility] Tobacco smoking consumption unknown [facility] Medical Equipment Procedure Code Equipment Code Equipment Origin al Text Equipment Identifier Dates [id number] FDA Start: 12-08-2019 {[id number] [facility] Start: 12-29-2019 Clinical Notes 01-28-2022 to 11-09-2023 Note Date & Type Note Facility 11-09-2023 Evaluation note Encounter Date Diagnosis Assessment Notes Oct, Attention deficit disorder (ADD) in adult (ICD-10 - F98.8) [facility] Other 12-07-2023 Evaluation note* Encounter Date Diagnosis Assessment Notes Treatment Notes Treatment Clinical Notes Sep, Attention deficit disorder (ADD) in adult (ICD-10 - F98.8) [facility] Other 10-31-2023 Evaluation note* Encounter Date Diagnosis Assessment Notes Treatment Notes Treatment Clinical Notes Jul, Attention deficit disorder (ADD) in adult (ICD-10 - F98.8) [facility] Other 08-14-2023 Evaluation note* Encounter Date Diagnosis Assessment Notes Treatment Notes Treatment Clinical Notes May, Attention deficit disorder (ADD) in adult (ICD-10 - F98.8) [facility] Other 07-17-2023 NoteHNO ID: [id number] Author: Shad Rouse MD Service: ? Author Type: Physician Type: Progress Notes Filed: 05/08/2023 6:26 AM Note Text: Impression: This is Ms. Keturah Cook, a 57 year old female who presents to the [facility] clinic with the chief complaint of right leg numbness, sensation of leg weakness. Approximately 8-week history of right lower extremity numbness. Also notes right foot drop. Tripping. No major low back pain issues. No sciatica history. Upper extremities are fine. Nothing like this before. Approximately 75 pound weight loss since July 2022. Does engage in habitual leg crossing. On exam, has numbness over the lateral aspect of the right lower extremity distal to the knee. Weakness of dorsiflexion and ankle eversion is noted on the right. Unable to heel walk on the right. Impression is for peroneal neuropathy, right leg. Plan: - Recommend discussion with primary care about physical therapy. - We will tentatively plan for watchful waiting. Avoid leg crossing. - Could consider EMG for prognostication purposes. - Reach out with any questions or concerns. MyChart is an excellent way to get ahold of our team. Shad Rouse MD Staff, [facility] HPI: This is Ms. Keturah Cook, a 57 year old female who presents to the [facility] clinic with the chief complaint of right leg numbness, sensation of leg weakness. Review: Numbness right foot and leg. Abnormal MRI brain. MRI brain completed 04/16/2023 Report scanned into our system 1. Mild nonspecific FLAIR signal abnormalities of the subcortical white matter, compatible with chronic small vessel ischemic changes. Demyelinating disorder cannot be excluded. 2. No acute infarct, mass effect or abnormal enhancement. 3. Mucosal thickening in the right sphenoid sinus and inferior right maxillary sinus. CC: 2 month history of right leg numbness Both legs feel weak (quiver) Today: 2 month history of right leg numbness Both legs feel weak (quiver) Also right foot drop Trips, no falling Just noticed this the last few months Noticed with the numbness Also For 1 year ball of foot numb Has been overweight Recently with weight loss No major low back pain issues No sciatica Arms are fine No arm weakness that she notices No arm numbness or tingling Nothing like this before Weakness gets worse over the course of the day Better in the AM when rested Significant weight loss since July 2022 227 > 152 Was 257 several years ago Crosses her legs most of the time Prefers the right, does switch it up No history of weakness No history of numbness Cataract surgery OU 2019, uses readers No clear optic neuritis history clinically Struggles with heat, done Works less physical job Reports bladder urgency that comes and goes Past history per chart review includes: Past medical history, problem list: Diabetes Past surgical history: Hysterectomy, cholecystectomy Family history: Social history: Non-smoker No alcohol OBJECTIVE: PHYSICAL EXAM: Neurological: Mental Status: Alert. Speech fluent. Cogent. Responds appropriately. Cranial Nerves: CNII: Visual sneed intact. No red desaturation. CNIII, IV, : Pupils are reactive to light. No RAPD. Eyes cross midline. CN V: Facial sensation intact bilaterally to touch. CN VII: Smile is symmetric. CN VIII: Hearing intact to finger rub bilaterally. CN IX: No hypophonia. Motor: Bulk is normal in the upper and lower extremities. Tone is normal in the upper and lower extremities. Individual muscle group testing: Right Left Shoulder abduction 5 5 Elbow flexion 5 5 Elbow extension 5 5 Wrist extension 5 5 Wrist flexion Finger extension 5 5 Distal finger flexion 5 5 Thumb abduction Hip flexion 5 5 Knee extension Approx 5 Approx 5- to 5 Knee flexion Approx 5 5-? Dorsiflexion 3- 5 Plantarflexion 5 5 Ankle inversion Approx 5 5 Ankle eversion 4+ 5 Toe walks. Reflexes: R L Biceps 2 1-2 Patellar 2 2 Ankle Tr? 1 Coordination: FNF intact bilaterally. Sensation: Intact to sharp in the distal upper and lower extremities. Some numbness right lateral calf. Rhomberg negative. Gait: Stands with arms crossed. Ambulates easily in the clinic wade. Normal, narrow-based gait. Able to tandem walk. Less arm swing on right. Turns easily. Hops on left foot, right foot perhaps less stable. Toe walks, right foot less stable. Cannot heel walk on the right. This note was partially created using voice recognition software and is inherently subject to errors including those of syntax and sound-alike substitutions which may escape proofreading. In such instances, original meaning may be extrapolated by contextual derivation. I spent a total of 71 minutes on the date of the service which inc (more content not included)...[facility]07-17-2023 History of Present illness Narrative* Shad Rouse MD - 05/07/2023 10:00 AM EDT Impression: This is Ms. Keturah Cook, a 57 year old female who presents to the [facility] with the chief complaint of right leg numbness, sensation of leg weakness. Approximately 8-week history of right lower extremity numbness. Also notes right foot drop. Tripping. No major low back pain issues. No sciatica history. Upper extremities are fine. Nothing like thisbefore. Approximately 75 pound weight loss since July 2022. Does engage in habitual leg crossing. On exam, has numbness over the lateral aspect of the right lower extremity distal to the knee. Weakness of dorsiflexion and ankle eversion is noted on the right. Unable to heel walk on the right. Impression is for peroneal neuropathy, right leg. Plan: - Recommend discussion with primary care about physical therapy. - We will tentatively plan for watchful waiting. Avoid leg crossing. - Could consider EMG for prognostication purposes. - Reach out with any questions or concerns. MyChart is an excellent way to get ahold of our team. Shad Rouse MD Staff, [facility] HPI: This is Ms. Keturah Cook, a 57 year old female who presents to the [facility] clinic with the chief complaint of right leg numbness, sensation of leg weakness. Review: Numbness right foot and leg. Abnormal MRI brain. MRI brain completed 04/16/2023 Report scanned into our system 1. Mild nonspecific FLAIR signal abnormalities of the subcortical white matter, compatible with chronic small vessel ischemic changes. Demyelinating disorder cannot be excluded. 2. No acute infarct, mass effect or abnormal enhancement. 3. Mucosal thickening in the right sphenoid sinus and inferior right maxillary sinus. CC: 2 month history of right leg numbness Both legs feel weak (quiver) Today: 2 month history of right leg numbness Both legs feel weak (quiver) Also right foot drop Trips, no falling Just noticed this the last few months Noticed with the numbness Also For 1 year ball of foot numb Has been overweight Recently with weight loss No major low back pain issues No sciatica Arms are fine No arm weakness that she notices No arm numbness or tingling Nothing like this before Weakness gets worse over the course of the day Better in the AM when rested Significant weight loss since July 2022 227 > 152 Was 257 several years ago Crosses her legs most of the time Prefers the right, does switch it up No history of weakness No history of numbness Cataract surgery OU 2019, uses readers No clear optic neuritis history clinically Struggles with heat, done Works less physical job Reports bladder urgency that comes and goes Past history per chart review includes: Past medical history, problem list: Diabetes Past surgical history: Hysterectomy, cholecystectomy Family history: Social history: Non-smoker No alcohol OBJECTIVE: PHYSICAL EXAM: Neurological: Mental Status: Alert. Speech fluent. Cogent. Responds appropriately. Cranial Nerves: CNII: Visual sneed intact. No red desaturation. CNIII, IV, : Pupils are reactive to light. No RAPD. Eyes cross midline. CN V: Facial sensation intact bilaterally to touch. CN VII: Smile is symmetric. CN VIII: Hearing intact to finger rub bilaterally. CN IX: No hypophonia. Motor: Bulk is normal in the upper and lower extremities. Tone is normal in the upper and lower extremities. Individual muscle group testing: Right Left Shoulder abduction 5 5 Elbow flexion 5 5 Elbow extension 5 5 Wrist extension 5 5 Wrist flexion Finger extension 5 5 Distal finger flexion 5 5 Thumb abduction Hip flexion 5 5 Knee extension Approx 5 Approx 5- to 5 Knee flexion Approx 5 5-? Dorsiflexion 3- 5 Plantarflexion 5 5 Ankle inversion Approx 5 5 Ankle eversion 4+ 5 Toe walks. Reflexes: R L Biceps 2 1-2 Patellar 2 2 Ankle Tr? 1 Coordination: FNF intact bilaterally. Sensation: Intact to sharp in the distal upper and lower extremities. Some numbness right lateral calf. Rhomberg negative. Gait: Stands with arms crossed. Ambulates easily in the clinic wade. Normal, narrow-based gait. Able to tandem walk. Less arm swing on right. Turns easily. Hops on left foot, right foot perhaps less stable. Toe walks, right foot less stable. Cannot heel walk on the right. This note was partially created using voice recognition software and is inherently subject to errors including those of syntax and sound-alike substitutions which may escape proofreading. In such instances, original meaning may be extrapolated by contextual derivation. I spent a total of 71 minutes on the date of the service which included time spent talking to the patient/documenting in the chart, examining the patient. [facility] Miscellaneous Notes* Telephone Encounter - Jersey Caro - 04/27/2023 11:50 AM EDT Received fax from [facility] with a MRI Brain report dated 04/16/23. Initial appointment with provider is scheduled for 05/07/23. Scanned report into [employer]. documented in this encounterProv[facility]06-[facility] Evaluation note* Encounter Date Diagnosis Assessment Notes Treatment Notes Treatment Clinical Notes Mar, Abnormal brain MRI (ICD-10 - R90.89) Mar, Right leg weakness (ICD-10 - R29.898) Mar, Frequent headaches (ICD-10 - R51.9) [facility] Other 06-20-2023 Evaluation note* Encounter Date Diagnosis Assessment Notes Treatment Notes Treatment Clinical Notes Mar, Acute intractable headache, unspecified headache type (ICD-10 - R51.9) Pt requests pain med for headache. Feels it is related to cervical issues prompting a tension type headache. However, with the headaches and the unilateral weakness - agrees to MRI to r/o mass or MS. Mar, Right leg weakness (ICD-10 - R29.898) As above. 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 Patient advised to avoid contact with elderly, neonates, and immunocompromised until lesions are crusted over. May use OTC ibuprofen/Tylenol as needed for pain. May put cornstarch or baking soda on lesions to aid in drying up vesicles. Do not scratch or pick at lesions. Moist cool compresses on affected areas can help with any pain and discomfort. Encouraged patient to follow up with PCP. Patient should inquire about getting shingles vaccine once active lesions have cleared up. Patient verbalized understanding and agreement with treatment plan. Nov, Herpes zoster without complication (ICD-10 - B02.9) Nov, Cervical pain (ICD-10 - M54.2) call if neck pain/headache resumes/continues for MRI mentioned in Xray report [facility] Other 02-16-2023 Evaluation note* Encounter Date Diagnosis Assessment Notes Treatment Notes Treatment Clinical Notes Nov, Left cervical radiculopathy (ICD-10 - M54.12) Check Xray for possible pinched nerve. Pain was so severe on 12/05, she almost went to ER. Will add meds and consider PT based on xray results. [facility] Other 04-09-2022 NotePROCEDURE: XR FINGER RIGHT (MIN 2 VIEWS) COMPARISON: None. HISTORY: Reason for exam:->Nail impailed in right ring finger FINDINGS: BONES:3 images demonstrate a now in the dorsal soft tissue along the distal fourth middle phalanx. No acute fracture or dislocation. Underlying degenerative changes with joint space narrowing and marginal osteophyte formation most significant along the distal interphalangeal joints. The last image taken at 9:09 AM demonstrates removal of the nail with no radiopaque foreign body SOFT TISSUES:Negative. No visible soft tissue swelling. EFFUSION:None visible. OTHER: Negative. IMPRESSION: Presence of a radiopaque foreign body presumed to be a nail with interval removal, dorsal fourth middle phalanx Interpreted by: Kale Cheung MD Signed by: Kale Cheung MD 01/28/22 Final resultSt. Anthony'S HospitalEvaluation + Plan note No data available for this section [facility] noteNo InformationNoFoundations [facility] [employer] Other Evaluation note* Diagnosis Peroneal neuropathy, right- Primary documented in this encounter [facility]* Diagnosis Onset Date Resolution Status Adult ADHD acute Cervical spondylitis with radiculitis [facility] Work Phone: History general Narrative - Reported* Type Description Date Medical History Gout, unspecified Medical History Uncontrolled type 2 diabetes mellitus without complication, without long-term current use of insulin Medical History Insomnia Medical History Elevated liver enzymes Medical History Depression, major Medical History Anxiety and depression Medical History Abscess of buttock, left Medical History Pilonidal cyst Medical History Left lateral knee pain Medical History Exertional shortness of breath Medical History Attention deficit disorder (ADD) in adult Surgical History Gallbladder 1990 Surgical History Hysterectomy 2005 Surgical History multiple Laparoscopies Surgical History Tubal 1990 Surgical History Tubal reversal 1995 Surgical History Cataract surgery both 2019 Hospitalization History SEE SURGICAL HX [facility] Other Hospital Discharge instructions No data available for this section [facility] Summary Purpose Family History Relationship Condition Age at Onset Recorded Date/T evangelist father Heart disease Unknown Diabetes mellitus Unknown Unknown Not Specified Hypertension Unknown Heart disease Unknown sister Malignant neoplasm Unknown Malignant neoplasm of breast Unknown Advance Directives Advance Directive Response Recorded Date/ Time Advance Directives No March 06 4 8:37am Reason for Referral Reason *FU 04/26 Last OV and MRI results. Diagnosis 1 Abnormal brain MRI ( R90.89) Referral Organization [facility] Referring Provider First Name Ariana Referring Provider Last Name Taylor Referring Provider Specialty Family [facility] Referred Organization [facility] Referred Provider Kevin Pedroza Referred Address [address] [place], [place],[address] Referred Provider Specialty Neurology Referral Priority Routine General Notes Irais Marrero 09:57:01 AM >receiverd today, notes locked, referralf faxed Chief Complaint and Reason for Visit Chief Complaint Amb Documentation sinus infection Reason for Visit Adult ADHD Cervical spondylitis with radiculitis Additional Source Comments INFORMATION SOURCE (unrecogn ized section and content) DATE CREATED AUTHOR 11/15/2018 [facility] DATE CREATED AUTHOR AUTHOR'S ORGANIZ ATION 01/30/2022 [facility] DATE CREATED AUTHOR AUTHOR'S ORGANIZ ATION 02/15/2022 [facility] DATE CREATED AUTHOR AUTHOR'S ORGANIZ ATION 12/14/2022 [facility] DATE CREATED AUTHOR AUTHOR'S ORGANIZ ATION 07/07/2023 [facility] DATE CREATED AUTHOR AUTHOR'S ORGANIZ ATION 09/05/2023 [facility] d[facility] Specialists EPIC REASON FOR VISIT (unrecogniz ed section and content) Reason Comments New Patient 2 month history of r ight leg numbnessBoth legs feel weak (quiver) Reason Comments Received Outside Medical Records Source Comments (unrecognize d section and content) In the event this informatio n is protected by the Federal Confidentiality of Alcohol and Drug Abuse Patient Records regulations: The Federal rules restrict any use of the information to criminally investigate or prosecute any alcohol or drug abuse patient.[facility] HospitalIn the event this information is protected by the Federal Confidentiality of Alcohol and Drug Abuse Patient Records regulations: The Federal rules restrict any use of the information to criminally investigate or prosecute any alcohol or drug abuse patient.[facility] Care Teams (unrecognized sec tion and content) Custody Officer Relationship Specialty [place] [address] [place] [phone] PCP General 05/25/09 Custody Officer Relationship Specialty [place] [address] [place] [phone] PCP [facility] 05/25/09 Team Status: Active Member Role Status Dates Ariana Taylor MD Primary Care Provider Active Team Status: Active Member Role Status Dates Ariana Taylor MD Primary Care Provider Active Start: December 31, 2023 KERRY Coates Attending Provider Active Start : December 31, 2023 Team Status: Inactive Member Role Status Dates Ariana Taylor MD Primary Care Provide r, Attending Provider Active Start: March 25, 2024 End: March 25, 2024 Goals (unrecognized section and content) Goals may be documented in a n alternate section FOR RECORDS PERTAINING TO PATIENTS WHO ARE OR HAVE BEEN ENROLLED IN A CHEMICAL DEPENDENCY/SUBSTANCEABUSE PROGRAM, SOME INFORMATION MAY BE OMITTED. This clinical summary was aggregated from multiple sources. Caution should be exercised in using it in the provision of clinical care. This summary normalizes information from multiple sources, and as a consequence, information in this document may materially change the coding, format and clinical context of patient data. In addition, data may be omitted in some cases. CLINICAL DECISIONS SHOULD BE BASED ON THE PRIMARY CLINICAL RECORDS. [employer] [facility]. provides no warranty or guarantee of the accuracy or completeness of information in this document.
== END 2024-12-31 10:44 | disposition home or self-care (01) ==
LOC: RAD 10:44
PROVIDERS: PCP Family Medicine; Visit Provider Family Medicine
DX: R10.9 Unspecified abdominal pain (principal)
CPT/HCPCS: 74018

== ENCOUNTER 2025-10-18 15:37 | Outpatient (REF) | payer BC, SELFPAY ==
--- OUTSIDE RECORDS SUMMARY | 2025-11-02 15:41 | XMS_ITS | Clinical Summary ---
Author Organization Address [address] [place] [address] Care Team Providers Care Roll On Man Name Role Phone Ariana Devlin MD Primary Care Provider [phone] Allergies No known active allergies Medications * This document contains information received from the source organization and may not represent a complete record from that organization. MedicationSigDispense QuantityRefillsLast FilledStart DateEnd DateStatus bupropion hcl(WELLBUTRIN XL 300 MG 24 HR TAB) Take one(1) tablet daily.ctive modafinil(PROVIGIL 200 MG TAB) once utpgt746ctive METFORMIN 500 MG TAB Take two(2) tablets daily.ctive meloxicam (MOBIC) 15 mg tablet Take 15 mg by mouth.12/05/2019Active tirzepatide (MOUNJARO) 2.5 mg/0.5 mL pen injector Active VYVANSE 40 mg capsule TAKE 1 CAPSULE BY MOUTH once a day IN THE MORNING FOR 30 DAYS04/18/2023ctive tiZANidine (ZANAFLEX) 4 mg tablet Take 4 mg by mouth every 6 hours as needed.Active HYDROcodone-acetaminophen (NORCO) 5-325 mg per tablet Take 1 tablet by mouth every 8 hours as needed for pain.Active Active Problems ProblemNoted DateDiagnosed DateMorbid sfcleii2707/29/2009 Social History Tobacco UseTypesPacks/DayYears UsedDateSmoking Tobacco: FormerCigarettes Smokeless Tobacco: Never Tobacco Cessation:Counseling Given: Not Answered Area Deprivation IndexAnswerDate RecordedNational Score (1-100), lower number is lower cago349505/07/2023State Score (1-10), lower number is lower sddw03605/07/2023 Data from: https://www.neighborhoodatlas.medicine.[facility].edu/. Last address used for calculation[address]3CommentsNoSex and Gender InformationValueDate RecordedSex Assigned at UswljNigtzn02/29/2023 5:19 PM EDT Legal WcgKnjqbh65/02/2012 9:18 AM ESTGender XqinswbaIautkj24/29/2023 5:19 PM EDT Sexual AcbhepbwsuaGppflazc10/29/2023 5:19 PM EDT Last Filed Vital Signs Vital SignReadingTime TakenCommentsBlood Xdyarnif485/8205/07/2023 9:48 AM EDT Fkcww189205/07/2023 9:48 AM EDTTemperature--Respiratory Rate--Oxygen Saturation 100%05/07/2023 9:48 AM EDTInhaled Oxygen Concentration--Azxdrs13.9 kg (152 lb) 05/07/2023 9:48 AM JJZPecfxo367.6 cm (5' 6 )05/07/2023 9:48 AM EDTBody Mass Index24.5307 9:48 AM EDT Plan of Treatment Health MaintenanceDue DateLast DoneCommentsAnxiety Psputidoa64/17/1985Depression Xqzhjuyua31/17/1985HIV Kgstswqks86/17/1985Hepatitis C Bqvkisuku11/17/1985 Hepatitis B Vaccine (1 of 3 - 19+ 3-dose series)1986Cervical Cancer Bcdpqpaly47/17/1988Mammogram Vyupppzcx05/17/2007CT Wjbsexmycqfv28/17/2012 Cologuard (FIT-DNA)10/07/20125874Sdrbmgsgyfo35/17/2012Colorectal Cancer Screening 2012Fecal Occult Blood10/07/20125667Iuqrypmhmnvde82/17/2012Pneumococcal Vaccine: 50+ (1 of 1 - PCV)2017RSV Vaccine (1 - Risk 50-74 years 1-dose series)2017Shingrix Vaccine (1 of 2)2017Diabetes Thpuueapm41/13/2021 09/03/2018, 09/03/2018, 01/16/2018, Additional history existsLipid Screening 3111/03/2017, 07/15/2009Covid-19 Vaccine (2024- season)2025 07/28/2021, 12/14/2020, 11/16/2020Influenza Vaccine (#1)2025DTaP,Tdap,Td Vaccine (2 - Td or Tdap) Procedures Procedure NamePriorityDate/TimeAssociated DiagnosisCommentsCOMPREHENSIVE METABOLIC CHKXLRmlwgoq97/24/2009 8:42 AM EDT LIPID PANEL, SUKDANVZygoghq94/24/2009 8:42 AM EDT from Last 3 Months or Most Recently Relevant to Health Maintenance Results * (ABNORMAL) LIPID PANEL BASIC (07/15/2009 8:42 AM EDT)ComponentValueRef Range Test MethodAnalysis TimePerformed AtPathologist FiocmrftpNqmtyhkzwvlk914(H)30 - 149 mg/dLCINCINNATI [facility] LABORATORYCholesterol, Sohxh370(H)100 - 199 mg/dLCINCINNATI SHRINERS HOSPITAL LABORATORYHDL Daxgbpglmie71(L)>55 mg/dLCINCINNATI SHRINERS HOSPITAL LABORATORYVLDL Kwdrhppnpvx72(H)6 - 40 mg/dLCINCINNATI SHRINERS HOSPITAL LABORATORYLDL Cholesterol, Yfourqbkvs752(H)60 - 129 mg/dLCINCINNATI SHRINERS HOSPITAL LABORATORYFasting TimeUnknownhrsCINCINNATI [facility] LABORATORYTC:HDL Ratio 5.69(H)1.00 - 5.00[facility] LABORATORYLDL:HDL Ratio3.490.50 - 3.55 [facility]ORYNon HDL Migpncmxqbx647(H)90 - 159 mg/dL [facility] LABORATORYSpecimen (Source)Anatomical Location / LateralityCollection Method / VolumeCollection TimeReceived Time07/15/2009 8:42 AM EDT Narrative Authorizing ProviderResult TypeResult StatusJoseph Van CelayaoLABORATORY Final ResultPerforming OrganizationAddressCity/State/ZIP CodePhone Number [facility] [address] [place] [address] * (ABNORMAL) COMP METABOLIC PANEL (07/15/2009 8:42 AM EDT)ComponentValueRef RangeTest MethodAnalysis TimePerformed AtPathologist SignatureProtein, Total 7.56.0 - 8.4 g/dLCINCINNATI SHRINERS HOSPITAL LABORATORYAlbumin4.53.5 - 5.0 g/dL [facility] LABORATORYCalcium9.88.5 - 10.5 mg/dLCINCINNATI SHRINERS HOSPITAL LABORATORYBilirubin, Total0.30.0 - 1.5 mg/dLCINCINNATI SHRINERS HOSPITAL LABORATORYAlkaline Ztlikrtccki57344 - 150 U/LCST. MARY[facility] LABORATORY CWU816 - 40 U/LCST. MARY'S [facility]ENTER OUOWHMXSYKFcuwabu072(H)65 - 100 mg/dL [facility] ABWQOOSOCGPYW265 - 25 mg/dLCINCINNATI SHRINERS HOSPITAL LABORATORYCreatinine0.720.70 - 1.40 mg/dLCINCINNATI SHRINERS HOSPITAL LABORATORY Vtyhqn587040 - 148 mmol/LCST. MARY'S [facility] LABORATORYPotassium4.43.5 - 5.0 mmol/LCST. MARY'S [facility]ENTER OZLBSIKPSCEpegvtjd52695 - 110 mmol/LCST. MARY'S [facility] KAJYGUUBSDYN54839 - 32 mmol/LCST. MARY'S [facility] LABORATORYAnion Hsk742 - 15 mmol/LCST. MARY'S [facility] RLGXXMUCFKBGL972 - 45 U/LCST. [facility]ARY'[facility] LABORATORYComment:Expect to see ALT results 20% higher than current after 07/25/09.eGFR->60[facility] eGFR-All Other Races>60.[facility] LABORATORYComment: eGFR (Estimated GFR) Units of measure: mL/min/1.73 meters squared eGFR is derived from the reexpressed MDRD Study equation using the following parameters: serum creatinine, age, gender and race. The creatinine assay has been calibrated to be traceable to IDMS. An eGFR <60 mL/min/1.73m2 for >3 months is consistent with chronic kidney disease. Refer to KDOQI guidelines for clinical interpretation. Specimen (Source)Anatomical Location / LateralityCollection Method / Volume Collection TimeReceived Time07/15/2009 8:42 AM EDT Narrative Authorizing ProviderResult TypeResult StatusJoseph Van CelayaoLABORATORY Final ResultPerforming OrganizationAddressCity/State/ZIP CodePhone Number [facility] [address] [place] [address] from Last 3 Months or Most Recently Relevant to Health Maintenance Insurance Care Teams Team MemberRelationshipSpecialtyStart DateEnd Date Ariana Devlin MD [address] [place] [phone] [facility]05/25/09
--- OUTSIDE RECORDS SUMMARY | 2025-11-02 15:41 | XMS_ITS | Clinical Summary ---
Author Organization [facility] Address [address] [place] [address], [address] [place] [address] Care Team Providers Care Prospecting Driller Name Role Phone Ariana Devlin MD Primary Care Provider [phone] Allergies No known active allergies Medications MedicationSigDispense QuantityRefillsLast FilledStart DateEnd DateStatus meloxicam (MOBIC) 15 MG tablet Take 15 mg by mouth dailyActive Semaglutide,0.25 or 0.5MG/DOS, (OZEMPIC, 0.25 OR 0.5 MG/DOSE,) 2 MG/1.5ML SOPN Inject 0.5 mg into the skin once a weekActive cephALEXin (KEFLEX) 500 MG capsule Take 1 capsule by mouth 2 times daily 14 capsule 01/28/2022ctive Immunizations ImmunizationAdministration DatesNext DueTDaP, ADACEL (age 10y-64y), BOOSTRIX (age 10y+), IM, 0.5mL01/28/2022 Social History Tobacco UseTypesPacks/DayYears UsedDateSmoking Tobacco: NeverSmokeless Tobacco: NeverAlcohol UseStandard Drinks/WeekCommentsNever0 (1 standard drink = 0.6 oz pure alcohol)CommentsNoSex and Gender InformationValueDate RecordedSex Assigned at BirthNot on fileLegal NjtAvkhdl16/10/2013 2:51 PM ESTGender Identity Not on fileSexual OrientationNot on file Last Filed Vital Signs Vital SignReadingTime TakenCommentsBlood Gzeuelhu862/7704/06/2022 9:27 AM EDT Swxbg82202 8:38 AM ATEDnwvzocdqjr54.7 ??C (98.1 ??F)01/28/2022 8:38 AM EDTRespiratory Zsbh559301/28/2022 8:38 AM EDTOxygen Hkbbdpgcna41%01/28/2022 8:38 AM EDTInhaled Oxygen Concentration--Lmpdzo03.8 kg (220 lb)01/28/2022 8:38 AM EDT Height--Body Mass Index-- Plan of Treatment Not on file Insurance Care Teams Team MemberRelationshipSpecialtyStart DateEnd Date Ariana Devlin MD [facility]03/17/15
--- OUTSIDE RECORDS SUMMARY | 2025-11-02 15:41 | XMS_ITS | Clinical Summary ---
Author Organization [facility] Address [address] [place] [address] Care Team Providers Care Varnish Supervisor Name Role Phone Ariana Devlin MD Primary Care Provider [phone] Allergies Active AllergyReactionsCriticalityNoted DateCommentsDesvenlafaxineUnknown 09/04/20239733ZpwtapxbbTbpopce69/14/2023 Medications MedicationSigDispense QuantityRefillsLast FilledStart DateEnd DateStatus Mounjaro 5 MG/0.5ML solution pen-injector 08/16/2023ctive Vyvanse 40 MG capsule TAKE 1 CAPSULE BY MOUTH ONCE DAILY IN THE MORNING FOR 30 DAYSActive Social History Tobacco UseTypesPacks/DayYears UsedDateSmoking Tobacco: FormerCigarettes Tobacco Cessation:Counseling Given: Yes CommentsUnknownSex and Gender InformationValueDate RecordedSex Assigned at BirthNot on fileLegal DhsGmxask07/01/2023 8:33 PM EDTGender IdentityNot on fileSexual OrientationNot on file Plan of Treatment Not on file Insurance Care Teams Team MemberRelationshipSpecialtyStart DateEnd Date Ariana Devlin MD PCP - GeneralFamily Djwpvtkh74/14/23
--- OUTSIDE RECORDS SUMMARY | 2025-11-02 15:41 | XMS_ITS | Clinical Summary ---
Author Organization [facility] Address [address] [place] [address] Care Team Providers Care Fingerprint Clerk Name Role Phone Unavailable Primary Care Provider Unavailabl e Social History Tobacco UseTypesPacks/DayYears UsedDateSmoking Tobacco: Never Assessed CommentsUnknownSex and Gender InformationValueDate RecordedSex Assigned at Not on fileLegal KusVedtlx46/30/2022 12:11 AM EDTGender IdentityNot on file Sexual OrientationNot on file Plan of Treatment Not on file
--- OUTSIDE RECORDS SUMMARY | 2025-11-02 18:58 | XMS_ITS | CCD ---
Author Organization [facility] Care Team Providers Care Diamond Mounter Name Role Phone PHYSICIAN, DEFAULT Admitting Unavailable PHYSICIAN, DEFAULT Attending Unavailable ARIANA TAYLOR Primary Care Unavailable KING VASQUEZ Attending Unavailable ARIANA TAYLOR Primary Care Physician [phone] CLAUDIA, DR ARIANA Orantes Admitting Unavailable TAYLOR, DR ARIANA Orantes Attending Unavailable CLAUDIA, DR ARIANA Orantes Primary Care Unavailable Zieblinda, Gallo Consulting Unavailable CLAUDIA, DR ARIANA Orantes Consulting Unavailable CLAUDIA, DR ARIANA Orantes Admitting Unavailable TAYLOR, DR ARIANA Orantes Attending Unavailable CLAUDIA, DR ARIANA Orantes Primary Care Unavailable CREOLE, DR KALE Cheung Consulting Unavailable CLAUDIA, DR ARIANA Orantes Consulting Unavailable OLLIE, DR DAMON Admitting Unavailable OLLIE, DR DAMON Attending Unavailable TAYLOR, DR ARIANA Orantes Primary Care Unavailable Zieblinda, Gallo Consulting Unavailable OLLIE, DR DAMON Consulting Unavailable TAYLOR, DR ARIANA Orantes Admitting Unavailable TAYLOR, DR ARIANA Orantes Attending Unavailable CLAUDIA, DR ARIANA Orantes Primary Care Unavailable CLAUDIA, DR ARIANA Orantes Consulting Unavailable Ariana Taylor Unavailable Ariana Taylor MD Primary Care Provider [phone] [place] Attending Unavailabl ARIANA Sheldon Primary Care Unavailable PRITESH DEL VALLE Attending Unavailable Ariana Taylor MD Primary Care Provider [phone] Ariana Taylor MD Attending Provider Allergies Allergy ClassificationReported Allergen(s)Allergy TypeDate of OnsetReaction(s) Facility (17 sources)Desvenlafaxine; Translations: [desvenlafaxine]Drug [id number] Unknown (qualifier value)[facility] (17 sources)metFORMIN; Translations: [metformin]Drug Dktknax98-20-7465Ogjgvst (qualifier value)[facility] (4 sources)patient allergy list reviewed by nurse or physiciaPropensity to adverse wonzrkbys55-23-1077Mfbeazt:[employer] Other (4 sources)Allergies ReconciledPropensity to adverse reactionsUnknoSimply Good Technologies Other Medications Current Medications MedicationDrug Class(es)DatesSig (Normalized)Sig (Original)0.5 ML tirzepatide 10 MG/ML Auto-Injector [Mounjaro] (11 sources)inject 0.5 mL by subcutaneous injection every weekMounjaro 5 MG/0.5ML INJECT 0.5 ML UNDER THE SKIN ONCE A WEEK for 84 Activeinject 0.5 mL by subcutaneous injection every weekMounjaro 5 MG/0.5ML INJECT 0.5 ML (5MG) UNDER THE SKIN ONCE A WEEK for 84 Activeinject 0.5 mL by subcutaneous injection every weekMounjaro 5 MG/0.5ML 1/2 (ONE HALF) ML Subcutaneous WEEKLY for 90 days Active acetaminophen 325 mg / HYDROcodone bitartrate 5 mg oral tablet (20 sources)Opioid AgonistStart: 13-24-7508dkil 1 tablet by mouth every six hoursHydrocodone-Acetaminophen 5-325 mg tablet Active 1 TAB PO Every 6 hours 10 03June 08, 2025 Complies with drug therapyStart: 12-31-2024 End: 12-08-0630keei 1 tablet by mouth every six hoursHydrocodone-Acetaminophen 5-325 mg tablet Discontinued 1 TAB PO Every 6 hours 10 03December 31ugu2024 9:55amStart: 03-12-2024 End: 54-39-9376yaec 1 tablet by mouth every six hours as neededHydrocodone- Acetaminophen 5-325 mg tablet Discontinued 1 TAB PO Every 6 hours 18 05March 25, 2024 September 25, 2024 11:02am FreeTextSi tablet as needed Orally every 6 hrs; Note: Source Status: Start; Refills: 0; Qty: 28 Tablet; Provider: Claudia Lane EStart: 14-31-7730gymj 1 tablet by mouth every six hoursHYDROcodone- Acetaminophen 5-325 MG 1 tablet as needed Orally every 6 hrs for 7 days Mar, ActiveStart: 48-45-4736xjdl 1 tablet by mouth every eight hoursHYDROcodone- Acetaminophen 5-325 MG 1 tablet as needed Orally every 8 hrs for 7 days Nov, ActiveComment on above:Take 1 tablet by mouth every 8 hours as needed for pain.amitriptyline hydrochloride 25 mg oral tablet (1 source)Tricyclic AntidepressantStart: 29-90-8706brhj 1 mg by mouth once daily at bedtimeamitriptyline 25 mg Tab mg tab(s), Oral, Once a day (at bedtime), Refills(s) 0 Start Date: 12/16/20 Status: Jzypogu12 hr amphetamine aspartate 5 mg / amphetamine sulfate 5 mg / dextroamphetamine saccharate 5 mg / de xtroamphetamine sulfate 5 mg extended release oral capsule (10 sources)Central Nervous System StimulantStart: 27-79-6825ysdv 1 capsule by mouth once daily, then take 1 capsule by mouth every twenty-four hours Dextroamphetamine-Amphetamine (Adderall Xr) 20 mg capsule,extended release 24hr Active 20 MG PO Daily June 08, 2025 Complies with drug therapyStart: 03-06-2025 End: 92-40-9202agcn 1 capsule by mouth once daily, then take 1 capsule by mouth every twenty-four hoursDextroamphetamine-Amphetamine (Adderall Xr) 20 mg capsule,extended release 24hr Discontinued 20 MG PO Daily April 22, 2025 June 08, 2025 9:54amStart: 12-15-2024 End: 36-30-0782kmki 1 capsule by mouth once daily in the morning, then take 1 capsule by mouth every twenty-four hoursDextroamphetamine-Amphetamine (Adderall Xr) 15 mg capsule,extended release 24hr Discontinued 15 MG PO Every morning January 28, 2025 March 06, 2025 8:28amatorvastatin 20 mg oral tablet (6 sources)HMG-CoA Reductase InhibitorStart: 88-94-6722exew 1 tablet by mouth once dailyatorvastatin 20 mg Tab 20 mg = 1 tab(s), Oral, Daily, # 30 tab(s), Refills(s) 0 Start Date: 12/16/20atus: Fgtlfiq73 hr buPROPion hydrochloride 300 mg extended release oral tablet (4 sources)AminoketoneStart: 25-68-4050nqkp 1 tablet by mouth once daily Wellbutrin SR 150 mg Tab-ER 150 mg = 1 tab(s), Oral, Daily, Depression Start Date: 12/05/19 Status: OrderedStart: 32-08-3285czduhpvvh hcl(WELLBUTRIN XL 300 MG 24 HR TAB) Take one(1) tablet daily. 0 07/29/2009 ActiveComment on above:Take one(1) tablet daily.0.5 ml dulaglutide 1.5 mg/ml auto-injector (1 source)GLP-1 Receptor AgonistStart: 64-51-5484Iujjsupyo Pen 0.75 mg/0.5 mL subcutaneous solution SubCutaneous, qWeek, Refills(s) 0 Start Date: 12/16/20 Status: OrderedFreeStyle Domenica 2 [place] - (5 sources)FreeStyle Domenica 2 [place] - use as directed for 28 ActiveFreeStyle Domenica 2 Sensor - (5 sources)FreeStyle Domenica 2 Sensor - as directed Activemounjaro 5 mg/0.5ml solution pen-injector (1 source)inject 0.5 mL by subcutaneous injection every weekMounjaro 5 MG/0.5ML INJECT 0.5 ML UNDER THE SKIN ONCE A WEEK for 84 ActivepredniSONE 20 mg oral tablet (6 sources)Start: 00-21-5466fcik 1 tablet by mouth twice dailyPrednisone 20 mg tablet Active 20 MG PO Twice daily June 08, 2025 12:00am Complies with drugtherapyStart: 21-35-6410sxgo 2 tablets by mouth every twenty-four hours predniSONE 20 MG 2 tablets Orally Once a day for 5 days Nov, Active pregabalin 75 mg oral capsule (5 sources)Start: 12-30-1659fsya 1 capsule by mouth every twelve hoursLyrica 75 MG 1 capsule Orally Twice a day for 14 days Nov, ActiveTirzepatide (Weight Loss) (2 sources)Start: 56-09-2025Rystlrpntqj (Weight Loss) (Zepbound) 2.5 mg/0.5 mL solution Active 2.5 MG SUBCUT every week 2 May 22, 2025 3:30pm Complies with drug therapyStart: 05-06-2025 End: 96-80-4980Suwpqttcasu (Weight Loss) (Zepbound) 2.5 mg/0.5 mL solution Discontinued 2.5 MG SUBCUT every week May 06, 2025 12:00am May 22, 2025 3:30pmtiZANidine 2 mg oral tablet (20 sources)Central alpha-2 Adrenergic AgonistStart: 93-37-1223ulgp 1 tablet by mouth every eight hours as neededTizanidine 2 mg tablet Active 2 MG PO Every 8 hours as needed for muscle spasticity May 12:00am Complies with drug therapyStart: 03-12-2024 End: 44-10-5322ebey 1 tablet by mouth three times daily as neededTizanidine 4 mg tablet Discontinued 4 MG PO Three times daily as needed for muscle spasticity March 25, 2024 11:10am September 25, 2024 11:02am FreeTextSi tablet as needed Orally Three times aday; Note: Source Status: Taking; Qty: 30 Tablet; Provider: Claudia Lane EStart: 44-88-1256koaj 1 tablet by mouth every eight hourstiZANidine HCl 4 MG 1 tablet as needed Orally Three times a day for 10 days Nov, Activetake 1 tablet by mouth every six hours as neededtiZANidine (ZANAFLEX) 4 mg tablet Take 4 mg by mouth every 6 hours as needed. 0 Active Comment on above:Take 4 mg by mouth every 6 hours as needed.valACYclovir 1000 mg oral tablet (5 sources)Herpesvirus Nucleoside Analog DNA Polymerase Inhibitor, Herpes Simplex Virus Nucleoside Analog DNA Polymerase Inhibitor, Herpes Zoster Virus Nucleoside Analog DNA Polymerase InhibitorStart: 98-00-8844kvek 1 tablet by mouth every eight hoursValtrex 1 GM 1 tablet Orally tid for 7 days Nov, Active Completed/Discontinued Medications MedicationDrug Class(es)DatesSig (Normalized)Sig (Original)azithromycin 250 mg oral tablet (3 sources)Macrolide AntimicrobialStart: 09-25-2024 End: 51-29-1253Wduuhjtauzit 250 mg tablet Discontinued 0 PO .COMPLEX September 25, 2024 1:00am December 31, 2024 10:18am For 250 mg dose pack: take 500 mg today (day 1), then 250 mg for 4 days (days 2-5) POlisdexamfetamine dimesylate 50 mg oral capsule (20 sources)Central Nervous System StimulantStart: 03-25-2024 End: 55-97-3239nyaa 1 capsule by mouth once dailyLisdexamfetamine 50 mg capsule Discontinued 50 MG PO Daily October 20, 2024November 1:05pm Start: 12-31-2023 End: 86-73-5604geru 1 capsule by mouth once dailyLisdexamfetamine 40 mg capsule Discontinued 40 MG PO Daily December 31, 2023 January 30, 2024 12:59pm Start: 58-37-7094zhfm 1 capsule by mouth every twenty-four hoursVyvanse 40 MG 1 capsule in the morning Orally Once a day for 30 days Oct, ActiveStart: 07-26-8585eqhe 1 capsule by mouth every twenty-four hoursVyvanse 40 MG 1 capsule in the morning Orally Once a day for 30 days Sep, ActiveStart: 61-93-6303sueg 1 capsule by mouth every twenty-four hoursVyvanse 40 MG 1 capsule in the morning Orally Once a day for 30 days Jul, ActiveStart: 27-13-0836tqry 1 capsule by mouth every twenty-four hoursVyvanse 40 MG 1 capsule in the morning Orally Once a day for 30 days May, ActiveStart: 60-44-5836zfgb 1 capsule by mouth once daily in the morningVYVANSE 40 mg capsule TAKE 1 CAPSULE BY MOUTH once a day IN THE MORNING FOR 30 DAYS 04/18/2023 Act iveStart: 62-29-3243sftb 1 capsule by mouth every twenty-four hoursVyvanse 40 MG 1 capsule in the morning Orally Once a day for 30 days February, Active Start: 84-06-7609awiu 1 capsule by mouth every twenty-four hoursVyvanse 40 MG 1 capsule in the morning Orally Once a day for 30 days Jan, ActiveStart: 04-50-7769tuhw 1 capsule by mouth every twenty-four hoursVyvanse 40 MG 1 capsule in the morning Orally Once a day for 30 days Dec, ActiveStart: 19-95-5730kxpy 1 capsule by mouth every twenty-four hoursVyvanse 40 MG 1 capsule in the morning Orally Once a day for 30 days Oct, ActiveComment on above:TAKE 1 CAPSULE BY MOUTH once a day IN THE MORNING FOR 30 DAYSmeloxicam 15 mg oral tablet (20 sources)Nonsteroidal Anti-inflammatory DrugStart: 01-03-2024 End: 49-64-7085bjnj 1 tablet by mouth once dailyMeloxicam 15 mg tablet Discontinued 15 MG PO Daily January 03, 2024 9:55am December 12, 2024 4: 37pmStart: 12-18-2023 End: 24-91-4524rbyo 1 tablet by mouth once dailyMeloxicam 15 mg tablet Discontinued 0 .ROUTE .COMPLEX December 18, 2023 2:12pm January 03, 2024 9:42am TAKE 1 TABLET BY MOUTH ONCE DAILYStart: 12-18-2023 End: 56-06-1688gzso 1 tablet by mouth once dailyMeloxicam 15 mg tablet Discontinued 15 MG PO Daily December 18, 2023 1:00am December 18, 2023 2:12pmStart: 70-58-3745zhhw 1 tablet by mouth once dailyMobic 15 mg Tab 15 mg = 1 tab(s), Oral, Daily, Arthritis Start Date: 12/05/19 Status: OrderedComment on above:Take 15 mg by mouth.metFORMIN hydrochloride 500 mg oral tablet (2 sources)BiguanideStart: 37-52-4647FQAWSZWGF 500 MG TAB Take two(2) tablets daily. 0 07/29/2009 ActiveComment on above:Take two(2) tablets daily.modafinil 200 mg oral tablet (2 sources)Sympathomimetic-like AgentStart: 80-20-8784qcdhnaagc(PROVIGIL 200 MG TAB) once daily 0 07/29/2009 ActiveComment on above:once dailytamsulosin hydrochloride 0.4 mg oral capsule (2 sources)alpha-Adrenergic BlockerStart: 12-31-2024 End: 36-08-2906ynta 1 capsule by mouth once dailyTamsulosin (Flomax) 0.4 mg capsule Discontinued 0.4 MG PO Daily December 31, 2024 12:00am June 08, 2025 9:34amTirzepatide (14 sources)Start: 11-19-2024 End: 35-47-3119fljzqd 0.5 mL by subcutaneous injection every weekTirzepatide (Mounjaro) 5 mg/0.5 mL pen injector Discontinued 0 .ROUTE .COMPLEX November 1959:28am April 30, 2025 1:12pm INJECT 0.5 ML UNDER THE SKIN ONCE A WEEK Start: 02-63-5211tulpyc 0.5 mL by subcutaneous injection every weekTirzepatide (Mounjaro) 5 mg/0.5 mL pen injector Active 0 .ROUTE .COMPLEX November 19, 2024 9:28am INJECT 0.5 ML UNDER THE SKIN ONCE A WEEK Complies with drug therapy Start: 61-30-2230qxjowy 0.5 mL by subcutaneous injection every weekTirzepatide (Mounjaro) 5 mg/0.5 mL pen injector Active 0 .ROUTE .COMPLEX November 19, 2024 9:28am INJECT 0.5 ML UNDER THE SKIN ONCE A WEEKStart: 08-27-2024 End: 71-29-9897hfxvzp 0.5 mL by subcutaneous injection every weekTirzepatide (Mounjaro) 5 mg/0.5 mL pen injector Discontinued 0 .ROUTE .COMPLEX August 2742:59pm November 19, 2024 9:28am INJECT 0.5 ML UNDER THE SKIN ONCE A WEEKStart: 01-03-2024 End: 01-86-7564qpyuvn 0.5 mL by subcutaneous injection every weekTirzepatide (Mounjaro) 5 mg/0.5 mL pen injector Discontinued 0 .ROUTE .COMPLEX January 03, 2024 12:04pm August 27, 2024 2:59pm INJECT 0.5 ML UNDER THE SKIN ONCE A WEEK Start: 42-49-6756orbfoi 0.5 mL by subcutaneous injection every weekTirzepatide (Mounjaro) 5 mg/0.5 mL pen injector Active 0 .ROUTE .COMPLEX January 03, 2024 12:04pmINJECT 0.5 ML UNDER THE SKIN ONCE A WEEKStart: 01-03-2024 End: 63-45-5458Npwvlejnmjs (Mounjaro) 5 mg/0.5 mL pen injector Discontinued 5 MG SUBCUT every week January 03, 2024 12:00am January 03, 2024 12:04pmTirzepatide (2 sources)Start: 04-30-2025 End: 57-17-7530otsgyu 0.5 mL by subcutaneous injection every weekTirzepatide 2.5 mg/0.5 mL pen injector Discontinued 0 .ROUTE .COMPLEX 2 April 30, 2025 1:15pm 2024 11:05am INJECT 0.5 ML UNDER THE SKIN ONCE A WEEKStart: 04-30-2025 End: 40-88-0483puaabx 0.5 mL by subcutaneous injection every weekTirzepatide 2.5 mg/0.5 mL pen injector Discontinued 0 .ROUTE .COMPLEX 2 April 30, 2025 1:11pm 2024 1:16pm INJECT 0.5 ML UNDER THE SKIN ONCE A WEEKtirzepatide (MOUNJARO) 2.5 mg/0.5 mL pen injector (1 source)tirzepatide (MOUNJARO) 2.5 mg/0.5 mL pen injector Problems Active Problems Problem ClassificationProblemDateDocumented DateEpisodic/ChronicAbdominal pain (4 sources)Left flank pain; Translations: [Unspecified abdominal pain]12-31-2024 EpisodicAnxiety disorders (13 sources)Anxiety; Translations: [Mixed anxiety and depressive disorder] 08-21-6700HkwmudkSmpfosfbc-deficit, conduct, and disruptive behavior disorders (1 source)Attention deficit hyperactivity disorder, predominantly inattentive cloa13-28-2888LalyxpjJqbtcitmm-cenovgw, conduct, and disruptive behavior disorders (4 sources)Adult attention deficit hyperactivity disorder ; Translations: [Attention-deficit hyperactivity disorder, unspecified type]03-77-8278Aibwcni Attention-deficit, conduct, and disruptive behavior disorders (2 sources)Attention-deficit hyperactivity disorder, unspecified type; Translations: [Attention deficit disorder with hyperactivity]74-44-6619Gqjtbrp Diabetes mellitus with complications (20 sources)Type 2 diabetes mellitus with hyperglycemia; Translations: [Hyperglycemia due to type 2 diabetes mellitus]Onset: ChronicDiabetes mellitus without complication (13 sources)Type 2 diabetes mellitus; Translations: [Type 2 diabetes mellitus with hyperglycemia]82-01-0419GqwofziYfcvqgyri usually diagnosed in infancy, childhood, or adolescence (20 sources)Other specified behavioral and emotional disorders with onset usually occurring in childhood and adolescence; Translations: [Behavioral and emotional disorder with onset in childhood]ChronicGout and other crystal arthropathies (17 sources)Gout; Translations: [Gout, unspecified]Onset: ChronicMood disorders (20 sources)Depressive disorder; Translations: [Major depression, single episode]Onset: 348620-80-6368RbggqapMenmc circulatory disease (4 sources)Elevated blood-pressure reading without diagnosis of hypertension; Translations: [Elevated blood-pressure reading, without diagnosis of hypertension]EpisodicOther connective tissue disease (2 sources)Other symptoms and signs involving the musculoskeletal systemEpisodic Other liver diseases (12 sources)Elevated liver enzymes level; Translations: [Abnormal levels of other serum enzymes]EpisodicOther lower respiratory disease (1 source)Dyspnea on xqgmgrki11-14-5311JshaxriwTrffg lower respiratory disease (16 sources)Dyspnea; Translations: [Shortness of breath]EpisodicOther nervous system disorders (1 source)Neuropathy of lower limb; Translations: [Lesion of lateral popliteal nerve, right lower limb]92-65-1791KmyrnuyHsncj non-traumatic joint disorders (1 source)Hip ewxr85-81-0390YiqbrmbkFqrpg non-traumatic joint disorders (20 sources)Arthralgia of the lower leg; Translations: [Pain in left knee]Onset: 16-22-8626EurccfrzPmtgc nutritional; endocrine; and metabolic disorders (2 sources)Morbid obesity; Translations: [Morbid (severe) obesity due to excess calories]Onset: 488297-68-7714ZgqomnlUyqbb nutritional; endocrine; and metabolic disorders (10 sources)Obesity; Translations: [Obesity, unspecified]Onset: 03-18-2015 19-57-4070RvkrvtzPnhwc nutritional; endocrine; and metabolic disorders (8 sources)Body mass index 40+ - severely obese; Translations: [Body mass index (BMI) 40.0-44.9, adult]Onset: 71-01-7291WljuntnTumzo nutritional; endocrine; and metabolic disorders (16 sources)Obese class II; Translations: [Body mass index 39.0-39.9, adult] Onset: 47-58-0375AcueenmDhfxy nutritional; endocrine; and metabolic disorders (4 sources)Body mass index 30+ - obesity; Translations: [Body mass index 36.0- 36.9, adult]Onset: 73-45-9555MmhyefgYnulo nutritional; endocrine; and metabolic disorders (4 sources)Obese class I; Translations: [Body mass index (BMI) 33.0-33.9, adult] ChronicOther screening for suspected conditions (not mental disorders or infectious disease) (9 sources)Liver enzymes abnormal; Translations: [Encounter for screening for osteoporosis]Onset: 939679-81-2737ZogdjnzzGpmqm upper respiratory infections (3 sources)Upper respiratory infection; Translations: [Acute upper respiratory infection, unspecified]70-55-6840DfgjbwldKdlagzzj codes; unclassified (17 sources)Insomnia; Translations: [Insomnia, unspecified]Onset: 03-02-2016 70-86-7654SkmhikkcFeou and subcutaneous tissue infections (20 sources)Pilonidal cyst; Translations: [Pilonidal cyst without abscess] EpisodicSpondylosis; intervertebral disc disorders; other back problems (6 sources)Cervical arthritis; Translations: [Unspecified inflammatory spondylopathy, cervical region]95-70-1446GblgxudOyiks infection (14 sources)Postherpetic neuralgia; Translations: [Other postherpetic nervous system involvement]Episodic Past or Other Problems Problem ClassificationProblemDateDocumented DateEpisodic/ChronicCardiac dysrhythmias (4 sources)Palpitations; Translations: [Palpitations]Onset: 14-45-2501Qpmkjzpe Diabetes mellitus without complication (4 sources)Hyperglycemia; Translations: [Hyperglycemia, unspecified]Onset: 79-83-7227QukvzyayNaotawvz; including migraine (1 source)Headache; including migraineNonspecific chest pain (4 sources)Chest pain; Translations: [Chest pain, unspecified]Onset: 09-13-2015 EpisodicOther connective tissue disease (4 sources)Spasm; Translations: [Spasm of muscle]Onset: 66-93-4910WrvsnlwaEtfwn non-traumatic joint disorders (4 sources)Arthralgia of the pelvic region and thigh; Translations: [Pain in joint, pelvic region and thigh]Onset: 11-78-4894RcxmxqkqUsfmh nutritional; endocrine; and metabolic disorders (4 sources)Body mass index 25-29 - overweight; Translations: [Body mass index 27.0-27.9, adult]Onset: 81-53-1590HsrqjivvMegby skin disorders (4 sources)Alopecia; Translations: [Nonscarring hair loss, unspecified]Onset: 38-64-9286OflhpsaiBnciemak codes; unclassified (4 sources)Other specified health status; Translations: [OTHER SPECIFIED HEALTH STATUS]Onset: 89-51-8031UguscnvoPaquxaog codes; unclassified (1 source)Family history of malignant neoplasm of breast; Translations: [FAMILY HX MALIG NEOPLASM OF BREAST]Onset: 55-77-0989QrsfiedhZfmtjant codes; unclassified (1 source)Family history of malignant neoplasm of kidney; Translations: [FAM HX MALIGNANT NEOPLASM KIDNEY]Onset: 93-86-5903LscavwpzQpyfreskxlt; intervertebral disc disorders; other back problems (10 sources)Radiculopathy, cervical region; Translations: [Cervicalgia]Onset: 92-55-2791DbbjpsgmJcnzkdvgwbss (1 source)Frequent headaches R51.9 Results Test NameValueInterpretationReference RangeFacilityCNPNon 70-15-6271CWCI Telephone (NENMMN) KETURAH COOK ([id number]) 1965 F Date Time Provider Department 05/09/23 [place] [facility] During your visit today, we recorded the following information about you: Lilian Skinner RN 05/09/2023 9:22 AM Signed Office notes faxed to pts [facility] Dr Ariana Taylor [phone] Lilian Skinner RN BSN [facility] [place] Allergies As of Date: 05/09/2023 (No Known Allergies) Date Reviewed: 05/07/2023 Reviewed by: Lisa Choi Ma - Fully Assessed Reason for Visit: Patient Update [1234] Prescriptions as of 05/11/2023 - meloxicam (MOBIC) 15 mg tablet Take 15 mg by mouth. - tirzepatide (MOUNJARO) 2.5 mg/0.5 mL pen injector - VYVANSE 40 mg capsule TAKE 1 CAPSULE BY MOUTH once a day IN THE MORNING FOR 30 DAYS - tiZANidine (ZANAFLEX) 4 mg tablet Take 4 mg by mouth every 6 hours as needed. - HYDROcodone-acetaminophen (NORCO) 5-325 mg per tablet Take [...] 07/29/2009 Encounter Status:Closed by LILIAN SKINNER on 05/11/23NoMemorial Hospitaltravis 25-28-1953LWGDRshmez Visit (CHADS) KETURAH COOK ([id number]) 1965 F Date Time Provider Department 05/07/23 10:00 AM [place] During your visit today, we recorded the following information about you: Pulse Blood pressure Weight Height 88/minute 132/82 68.9 kg 1.676 m Shad Rouse MD 05/08/2023 6:26 AM Signed Impression: This is Ms. Keturah Cook, a 57 year old female who presents to the [facility] clinic with the chief complaint of [...] team. Shad Rouse MD Staff, [facility] [place] HPI: This is . Keturah Cook, a 57 year old female who presents to the [facility] clinic with the chief complaint of [...] No history of numbness Cataract surgery OU 2020, uses readers No clear optic neuritis history [...] software and is inhere (more content not included)...NormalWhite HospitalCNPNon 22-81-9702ZTNDEdhvcxhkg (NIQ) KETURAH COOK ([id number]) 1965 F Date Time Provider Department 04/27/23 [place] NIBeny During your visit today, we recorded the following information about you: Jersey Caro 04/27/2023 11:54 AM Signed Received fax from [facility] with a MRI Brain report dated 04/16/23. Initial appointment with provider is scheduled for 05/07/23. Scanned report into [employer]. Allergies As of Date: 04/27/2023 (No Known [...] mouth every 6 hours as needed. - HYDROcodone-acetaminophen (NORCO) 5-325 mg per tablet Take [...] 07/29/2009 Encounter Status:Closed by JERSEY CARO on 07/05/23NoSelect Medical Specialty Hospital - CincinnatiXR CSPINE 2_3 VIEWSon 00-68-9461MB CSPINE 2_3 VIEWSEXAMINATION: XR CSPINE 2_3 VIEWS HISTORY: Cervical radiculopathy [...] Electronically authenticated by: GALLO GUPTA Date: 2022-12-08 09:38NormSamaritan North Health CenterNICOTINE METABOLITESon 72-60-5174Jxvkgnmy<1.0NoCommunity Regional Medical Center on above:Result Comment: This test was developed and its performance characteristics determined by [facility]. It has not been cleared or approved by the Food and Drug Administration. Cotinine levels greater than 20.0 are consistent with the use of tobacco or tobacco cessation products.Performed By: #### NICTBLD #### [facility] [address] [place] [address] Dr. Deepti Maurootine<1.0NoCommunity Regional Medical Center on above:Result Comment: This test was developed and its performance characteristics determined by [facility] [employer]. It has not been cleared or approved by the Food and Drug Administration. Nicotine levels greater than 2.0 are consistent with the use of tobacco or tobacco cessation products.Performed By: #### NICTBLD #### [facility] [address] [place] [address] Dr. Deepti SmithGLYCOHEMOGLOBIN A1Con 77-54-3335HZQ RECOMMENDATIONSEE BELOWAdena Health SystemComchildren's hospital of [place] on above:Result Comment: ADA RECOMMENDED LIMIT 4.0 - 6.0 ADA THERAPEUTIC TARGET < 7.0 ACTION SUGGESTED > 7.0Performed By: #### A1C #### [facility] [address] [place] [address] Dr. Deepti SmithGlucose [Mass/Vol]111 mg/dLNoCommunity Regional Medical Center on above:Performed By: #### A1C #### [facility] [address] [place] [address] Dr. Deepti SmithHbA1c (Bld) [Mass fraction]5.5 %Normal4.5-6.2[facility] on above:Performed By: #### A1C #### [facility] [address] [place] [address] Dr. Deepti SmithLIPID PROFILEon 84-45-7898JOMJ-HDL RATIO NORMSEE BELOWNormalThe Orinda HospitalComment on above:Result Comment: 3.3 - 4.4 LOW RISK 4.4 - 7.1 AVERAGE RISK 7.1 - 11.0 MODERATE RISK >11.0 HIGH RISKPerformed By: #### LIPID #### [facility] [address] [address] [address] Deepti SmithCholesterol [Mass/Vol]183 mg/dLNormal<=200[facility] Comment on above:Performed By: #### LIPID #### [facility] [address] [address] [address] Deepti SimthCholesterol in HDL [Mass/Vol]45 mg/dFVgztzc00-84AxgCleveland ClinicComment on above:Performed By: #### LIPID #### [facility] [address] [place] [address] Dr. Deepti SmithCholesterol in LDL [Mass/Vol]115.8 mg/dLOhioHealth Doctors HospitalComment on above:Performed By: #### LIPID #### [facility] [address] [place] [address] Dr. Deepti Luuesterrakan.total/Cholesterol in HDL [Mass ratio]4.1 {ratio} NormalCleveland ClinicComment on above:Performed By: #### LIPID #### [facility] [address] [place] [address] Dr. Deepti SmithHDL NORMAL> or = 60 mg/dl - LOW CARDIOVASCULAR RISK <40 mg/dl - HIGH CARDIOVASCULAR RISKOhioHealth Doctors HospitalComment on above:Performed By: #### LIPID #### [facility] [address] [place] [address] Dr. Deepti SmithLDL CALC NORMALSEE BELOWOhioHealth Doctors HospitalComment on above:Result Comment: <100 mg/dl OPTIMAL 100 - 129 mg/dl NEAR OR ABOVE OPTIMAL 130 - 159 mg/dl BORDERLINE HIGH 160 - 189 mg/dl HIGH >190 mg/dl VERY HIGH Performed By: #### LIPID #### [facility] [address] [place] [address] Dr. Deepti SmithTriglyceride [Mass/Vol]111 mg/dLNormal<=150[facility] Comment on above:Performed By: #### LIPID #### [facility] [address] [place] [address] Dr. Deepti SchwabLDL CALC22.2 mg/dLNoRegency Hospital Cleveland WestComment on above: Performed By: #### LIPID #### [facility] [address] [place] [address] Dr. Deepti SmithCALCIUMon 79-20-0516Vaurqhl [Mass/Vol]9.0 mg/dLNormal8.5-10.1C[facility] ClinicComment on above:Performed By: #### DEANDRE CA #### [facility] [address] [place] [address] Dr. Deepti SmithCREATININEon 38-60-0411Gasfldtybq [Mass/Vol]0.81 mg/dLNormal 0.55-1.02C[facility] ClinicComment on above:Performed By: #### DEANDRE, CA #### [facility] [address] [place] [address] Dr. Deepti ClementGFR-AF MOSOTHO>60Normal>=60Cleveland ClinicComment on above:Performed By: #### DEANDRE, CA #### [facility] [address] [place] [address] Dr. Deepti ClementGFR-NON AF MOSOTHO>60Normal>=60C[facility] ClinicComment on above:Performed By: #### DEANDRE, CA #### [facility] [address] [place] [address] Dr. Deepti SmithVITAMIN D 25 OHon 71-70-5548MGV D 25-OH47.4 ng/mLNormalCleveland ClinicComment on above:Performed By: #### VITAD #### [facility] [address] [place] [address] Dr. Deepti Armenta RANGESSEE BELOWOhioHealth Doctors HospitalComment on above: Result Comment: <20 ng/mL Vit D deficient 20 - <30 ng/mL Vit D insufficient 30 - 100 ng/mL Vit D sufficient >100 ng/mL Potential ToxicityPerformed By: #### VITAD #### [facility] [address] [address] [address] Deepti SmithXR DEXA BONE DENSITYon 41-95-4397QB DEXA BONE DENSITYEXAMINATION: XR DEXA BONE DENSITY, 04/28/2022 8:54 AM EDT HISTORY: [...] Electronically authenticated by: GALLO GUPTA Date: 2022-04-28 16:[address] [place], [place] [address]MG MAMM SCREEN 3D WILIAM CADon 20-13-2316PQ MAMM SCREEN 3D WILIAM CAD Patient: KETURAH COOK Exam Date: 03/03/2022 : 1965 Gender:F Ordering : DR ARIANA TAYLOR M.D. Admission #: [id number] Family : Order #: [id number] CLICK HERE TO VIEW EXAM RADIOLOGY REPORT [...] breast cancer at age 76. LOCATION: [facility] BREAST COMPOSITION: Heterogeneously dense, which may obscure [...] by: Kale Gonzalez MD on 03/03/2022 at 13:48[facility] Vaginitis/Vaginosis, DNA Probeon 21-24-3573Vpsxqim sp rRNA Probe Ql (Vag fld) PositiveAbnormalNegativeGerman HospitalComment on above:Performed By: #### [id number] #### [facility] [address], [place] [address]Z. vaginalis rRNA Probe Ql (Genital specimen)NegativeInvalid Interpretation CodeNegativeGerman HospitalComment on above:Performed By: #### [id number] #### [facility] [address], [place] [address]R. vaginalis rRNA Probe Ql (Genital specimen)NegativeInvalid Interpretation CodeNegativeGerman HospitalComment on above:Result Comment: A duplicate report has been generated due to demographic update of the patient's Date of , Age, Gender, and/or Specimen Date. Please review patient results, reference intervals, and calculated results that may have been affected by this change. Performed at: [facility] [id number] PhD Cyn KooPerformed By: #### [id number] #### [facility] [address], [place] [address]Fldyuqmho Orderon 74-45-3308Ucjtuluiy Order [id number]#1.00CD:[address] [place], [place] [address]Physician Orderon 23-51-2358Drqbqrfmp Order [id number]#1.00CD:[address] [place] [address] Vital Signs Date TimeVital SignValuePerforming IbnhtvusuJbotdugj08-13-4587 09:30-0400Body lkiabh005.64 cmAriana Taylor MD Work Phone: [phone]08-18-2025 09:30-0400 Body mass index (BMI) [Ratio]36.6 kg/r2StbhmzAriana Taylor MD Work Phone: [phone]08-18-2025 09:30-0400 Body oqpuhc310.96 kgAriana Taylor MD Work Phone: [phone] [address]08-18-2025 09:30-0400 Diastolic blood ijheuhgh31 mm[Hg]Ariana Taylor MD Work Phone: [phone] [address]08-18-2025 09:30-0400 Heart rate94 /minAriana Taylor MD Work Phone: [phone]08-18-2025 09:30-0400 Systolic blood rjapsiyr610 mm[Hg]Ariana Taylor MD Work Phone: [phone]07-10-2025 13:13-0400 Body xlfwuf981.64 cmAriana Taylor MD Work Phone: [phone]07-10-2025 13:13-0400 Body mass index (BMI) [Ratio]33.9 kg/n0KyjkpeAriana Taylor MD Work Phone: [phone]07-10-2025 13:13-0400 Body jjafyx58.25 kgAriana Taylor MD Work Phone: [phone]03-12-2025 10:140400 Body qsjhif855.64 cmPaul[facility]03-12-2025 10:14-0400Body mass index (BMI) [Ratio]34.2 kg/z0KezduxlkpPaulding County Hospital03-12-2025 10:14040Body btdbih16.16 kgPaulding County Hospital03-12-2025 10:040Diastolic blood wkidulgn98 mm[Hg][facility] 12-31-2024 10:14-0400Heart pqxm895 /[facility] 12-31-2024 10:14-0400Systolic blood mm[Hg][facility]06-04-2024 10:54-0400Body smuyjf538.64 cmPaulding County Hospital06-04-2024 10:54-0400Body mass index (BMI) [Ratio]30.7 kg/e1MllgbempaPaulding County Hospital06-04-2024 10:54-0400Body eolhda68.18 kgPaulding County Hospital06-04-2024 10:54-0400Diastolic blood sktcaipa38 mm[Hg] [facility]06-04-2024 10:54-0400Heart rate92 /[facility]06-04-2024 10:54-0400Systolic blood tigxubhf269 mm[Hg] [facility]07-17-2023 09:48-0400Body .6 cm Shad Rouse MD Work Phone: [phone] HospitalVryeol52-21-2409 09:48-0400Body greyew48.95 kgShad Rouse MD Work Phone: [phone] HospitalOyjxqd40-13-7073 09:48-0400Diastolic blood kqyydyic47 mm[Hg]Shad Rouse MD Work Phone: [phone] HospitalJrmhwi83-88-5489 09:48-0400Heart rate88 /min Shad Rouse MD Work Phone: [phone] HospitalFysgpb50-37-7802 09:48-1014PhF7% (BldA) [Mass fraction]100 %Shad Rouse MD Work Phone: [phone] hospitaland Pbzjti11-06-8110 09:48-0400Systolic blood iidngvjt706 mm[Hg]Shad Rouse MD Work Phone: [phone] HospitalTkvjwd64-08-7430 10:15-0400Body sasigq833.64 cmAriana Taylor Other [employer] Other 06-20-2023 10:15-0400Body mass index (BMI) [Ratio] 24.05 kg/g0SmlgwvAriana Taylor Other [employer] Other 06-20-2023 10:15-0400Body .59 kgOdalisrigo Taylor Other [employer] Other 06-20-2023 10:15-0400Diastolic blood xoilszvc04 mm[Hg] Ariana Taylor Other [employer] Other 06-20-2023 10:15-0400Systolic blood vtbsurev556 mm[Hg] Ariana Taylor Other [employer] Other 02-20-2023 16:00-0500Body ytayli355.64 cmAriana Taylor Other [employer] Other 02-20-2023 16:00-0500Body mass index (BMI) [Ratio] 30.18 kg/c7TjixzxAriana Taylor Other [employer] Other 02-20-2023 16:00-0500Body anzyvp19.82 kgAriana Taylor Other [employer] Other 02-20-2023 16:00-0500Diastolic blood zgylucmz33 mm[Hg] Ariana Taylor Other [employer] Other 02-20-2023 16:00-5281LuI3% (BldA) [Mass fraction]98 % Ariana Taylor Other [employer] Other 02-20-2023 16:00-0500Systolic blood gaikfnsw010 mm[Hg] Ariana Taylor Other [employer] Other 02-16-2023 15:45-0500Body ntxaig659.64 cmAriana Taylor Other [employer] Other 02-16-2023 15:45-0500Body mass index (BMI) [Ratio] 30.18 kg/h9JqxpmcAriana Taylor Other [employer] Other 02-16-2023 15:45-0500Body telpwi62.82 kgAriana Taylor Other [employer] Other 02-16-2023 15:45-0500Diastolic blood agzvojlh52 mm[Hg] Ariana Taylor Other [employer] Other 02-16-2023 15:45-0499TjJ6% (BldA) [Mass fraction]97 % Ariana Taylor Other [employer] Other 02-16-2023 15:45-0500Systolic blood lfldnjej864 mm[Hg] Ariana Taylor Other [employer] Other Encounters Encounter DateEncounter TypeCare ProviderFacilityStart: 06-08-2025 End: 01-79-7509gqebdnvfatJcbliz E Braun MD Work Phone: [facility] Work Phone: Start: 06-08-2025 End: 58-90-3101Mknxhjg encounter procedureAriana Taylor MD-[facility] Work Phone: Start: 04-30-2025 End: 20-50-6568wnirpddxqmInsrny E Braun MD Work Phone: [facility] Work Phone: Start: 04-30-2025 End: 39-32-2658Psbfuct encounter procedureAriana Taylor MD-[facility] Work Phone: Start: 12-31-2024 End: 36-63-2916mwbsczfzwzJnzfiqfsfMemorial [facility] Work Phone: Start: 12-31-2024 End: 20-08-8728Hqijptq encounter procedureFirfrostburgs Physician Group-[facility] Work Phone: Start: 12-62-5007Msaplwl encounter statusMary Rutan Hospitaltart: 03-25-2024 End: 54-90-4080nrrbyxylwfFxeqpcvzwMemorial Health [facility] Work Phone: Start: 03-25-2024 End: 09-23-8522Qmizfwf encounter procedureDuke Health Physician [facility] Work Phone: Start: 42-91-0257Tln-patient / Non-visitDuke Health Phys[facility] Work Phone: Start: 11-09-2023 End: 51-84-1750jwdlboavhhTzcidu Braun Other [employer] Other Start: 64-68-0589Zshbgutsg encounterMarcia [facility] Hospitaltart: 09-27-2023 End: 43-85-5320gtwshrdrffHvfwgu Claudia Other [employer] Other Start: 34-47-0188Sqzlvxwzj encounterMarcia [facility] Hospitaltart: 09-04-2023 End: 81-49-2512vjjoyhypwmLYESQ M ALLENNot AvailableStart: 08-21-2023 End: 66-61-1147alsgbtsghsDedhef Claudia Other [employer] Other Start: 92-29-0172Dqsaalrmw encounterMarcia [facility] Hospitaltart: 06-04-2023 End: 29-89-3903muapmuotofQnjcoo Claudia Other [employer] Other Start: 30-32-9732Nxvbhqgvy encounterMarcia Flor [facility] ClinicStart: 05-07-2023 End: 05-43-1381nzpirrrdiqULHFNPHH O BRENNECKEFacility:[facility] Start: 05-07-2023 End: 90-25-3406Fznsawp encounter procedureShad Rouse MD Work Phone: NeurologyComment on above:Peroneal neuropathy, right (Primary Dx)Start: 14-33-2451Ohehznffg encounterShad Rouse MD Work Phone: NeurologyComment on above:Received Outside Medical RecordsStart: 04-23-2023 End: 92-68-9841wgjnzmsmhrErjurp Claudia Other [employer] Other Start: 54-38-5003Lfcfurygm encounterMarcia AlizaUnc Health Caldwell ClinicStart: 04-18-2023 End: 00-58-5807myabnsixqoMqzztq Claudia Other [employer] Other Start: 85-04-9532Pspxpttzi encounterMarcia Flor [facility] ClinicStart: 04-10-2023 End: 18-56-4579cxjlhinwzrBbgpsa Taylor Other [employer] Other Start: 49-84-8241Zidcdl outpatient visit 15 minutes Arianajulius AbramsUnc Health Caldwell ClinicStart: 02-01-2023 End: 90-37-0702fukbapwcpaIdtpts Taylor Other [employer] Other Start: 50-72-5555Ljggamzdf encounterMarcia Flor [facility] ClinicStart: 12-11-2022 End: 89-83-0210xkbptmstdlPpygaq Taylor Other [employer] Other Start: 28-27-8104Sdpkbt outpatient visit 15 minutes Ariana Ray [facility] ClinicStart: 17-17-1279Krhgmkmqx encounterMarrigo Michelle [facility] Watermantart: 12-07-2022 End: 02-68-7507sjpqirowryHN ARIANA TAYLORFacility:F2Qzsyk: 29-55-3974Gkwecz outpatient visit 15 minutesMarrigo [facility] ClinicStart: 11-28-2022 End: 07-11-2990fnphogqddyGcnpcq Braun Other [employer] Other Start: 79-36-6176Fuglypppq encounterMarrigo Michelle [facility] Watermantart: 83-22-3896Kzpxyqozg for general adult medical examination without abnormal findingsDR ARIANA Palomino [facility] Start: 11-18-2022 End: 03-27-2354sanihbeknsNA ARIANA TAYLORFacility:S9Dscda: 11-18-2022 End: 45-41-3106Aojxfsuas for general adult medical examination without abnormal findingsDR ARIANA TAYLORFacility:Y1Qpywn: 60-69-7621Mvmsw health examination Ariana Claudia Other [employer] Other Start: 04-28-2022 End: 64-53-6043gndemzqarpTC NELSON LAMPEFacility:T1Rbcqw: 03-03-2022 End: 27-27-3186jopseekpsnEL ARIANA Rolanda TAYLORFacility:S4Nbkzr: 02-09-2022 End: 76-16-4176Ygt Drop Milind Peoples [facility] Start: 01-28-2022 End: 19-98-5915Vdenudhjb department patient visitOhioHealth Doctors Hospitaltart: 11-07-2018 End: 30-76-0996Xzxrxdb encounter procedureDEFAULT PHYSICIANFacility:[facility] Procedures DateProcedureProcedure DetailPerforming ClinicianStart: 80-44-4316Pkvrkbqv extraction and insertion of intraocular lensJames Richelle comment on above:leftStart: 74-24-0710Gsvytqte extraction and insertion of intraocular lensJames Richelle comment on above:rightStart: 31-85-7448Vxmqwdydp for malignant neoplasm of breastOdaliscia Claudia Other Start: 57-22-6996Smupwjsqhu test result abnormalMarcia Taylor Other Start: 21-95-3355Zdoze 1996 panel - Serum or Plasma Shad Rouse MD Work Phone: Plan of Treatment DateCare ActivityDetailAuthorStart: 88-98-8244Uikexmkci vaccinationProMedica Memorial Hospitaltart: 76-75-2346VRMAAHLSUI ASSESSMENTDEPRESSION ASSESSMENTProMedica Memorial Hospitaltart: 86-67-9723NHLHR-19 VACCINE (4 - Pfizer series)COVID-19 VACCINE (4 - Pfizer series)[facility] Hospitaltart: 48-70-1434KWWYZRCY VACCINE (1 of 2) SHINGRIX VACCINE (1 of 2)[facility] Memorial Hospitaltart: 25-84-1494Mbjld 1996 panel - Serum or PlasmaLipid ScreeningProMedica Memorial Hospitaltart: 12-92-5801YRVZP SCREENLIPID SCREENProMedica Memorial Hospitaltart: 97-46-0350HFUPPYVJB (FIT-DNA)COLOGUARD (FIT-DNA) [facility] Hospitaltart: 60-52-7990UrnkpzzvmoqDDZENGBNCDEMfoomblvj ClinicStart: 13-13-2370PGDJZZXGYU CANCER SCREENINGCOLORECTAL CANCER SCREENINGSycamore Medical Center Start: 51-85-4306NV COLONOGRAPHYCT COLONOGRAPHYProMedica Memorial Hospitaltart: 2012 DIABETES SCREENDIABETES SCREENProMedica Memorial Hospitaltart: 75-77-5041Oieaomjv ScreeningDiabetes ScreeningProMedica Memorial Hospitaltart: 00-59-5219NBTDR OCCULT BLOOD FECAL OCCULT BLOODProMedica Memorial Hospitaltart: 15-00-4840DBZNJVTQATJWYDKRWARAJTHHPL [facility] Hospitaltart: 18-46-8664OkzyrnoiorsOadfhgzna ClinicStart: 21-87-3789NFB TESTINGHPV TESTINGProMedica Memorial Hospitaltart: 90-36-5024KQJ TESTINGPAP TESTING [facility] Hospitaltart: 99-19-0064Fyczc microalbumin profileSycamore Medical Center Start: 78-31-6384MBKFHSZMA C SCREENINGHEPATITIS C SCREENINGSycamore Medical Center Start: 23-65-2314ELL SCREENINGHIV SCREENINGProMedica Memorial Hospitaltart: 1965 HEPATITIS B (1 of 3 - 3-dose series)HEPATITIS B (1 of 3 - 3-dose series) [facility] Hospitaltart: 05-25-7434Dfpefogdh B Vaccine (1 of 3 - 3-dose series) Hepatitis B Vaccine (1 of 3 - 3-dose series)[facility] Hospitaluprapides regional [facility] abdominal X-rayPaulding County HospitalXR Cervical spine 5 [facility] Payers DatePayer CategoryPayerPolicy [id number] 2..[id number] 2..[id number] [id number] 2..[id number] 2..[id number] 2..1.183020.3.579.[id number] 2..1.243605.3.579.2.631413-46-6822LgtjkpvMAA585O4791490-72-1403Hkmihfi [id number] Social History DateTypeDetailFacilityTobacco smoking statusUnknown if ever smokedFisher - Caribou Medical CenterStart: 93-22-9529Jsu Assigned At BirthFeMcKitrick Hospitaltart: 04-10-2023 End: 97-85-1781Zifruks smoking status NHISEx-smokerSycamore Medical CenterHistory of tobacco useCurrent smokerSycamore Medical CenterHistory of tobacco useCigarette Smoker [facility] Hospitaltart: 22-61-5618Ayawlre use and exposureSmokeless tobacco non-userProMedica Memorial Hospitaltart: 18-22-7644Ybsjxtw of Social functionRiverside Methodist Hospital Score (1-100), lower number is lower vslz09VmdticigwProMedica Memorial Hospitaltart: 38-44-2436Rex Assigned At BirthFeCherrington Hospitaltart: 33-25-4256Lyekzu identityIdentifies as female gender (finding)[facility] Hospitaltart: 04-19-2023 Sexual orientationHeterosexual (finding)[facility] smoking status NHISTobacco smoking consumption unknownProMedica Memorial Hospitaltart: 46-68-8802Ruv Female (finding)[facility] Medical Equipment Procedure CodeEquipment CodeEquipment Original TextEquipment IdentifierDates {01}[id number]{17}[id number]{21}[id number] FDAStart: 12-08-2019 {01}[id number]{17}[id number]{21}[id number] FDAStart: 12-29-2019 Clinical Notes 01-28-2022 to 04-30-2025 Note Date & XdycXtejSgnasexu22-32-0823 Evaluation note* Diagnosis Onset Date Resolution Status Admit Date Class 1 obesity with body mass index (BM I) of 33.0 to 33.9 in adult acuteJuly 2024 9:57amType 2 diabetes mellitus with hyperglycemiaacuteJuly 2024 9:57amCervical spondylitis with radiculitisacuteAugust 2024 9:28am [facility] Work Phone: 1([phone]) [phone] Evaluation note* Encounter Date Diagnosis Assessment Notes Treatment Notes Treatment Clinical Notes Oct, Attention deficit disorder (ADD) in adult (ICD-10 - F98.8) [employer] Other 12-07-2023 Evaluation note* Encounter Date Diagnosis Assessment Notes Treatment Notes Treatment Clinical Notes Sep, Attention deficit disorder (ADD) in adult (ICD-10 - F98.8) [employer] Other 10-31-2023 Evaluation note* Encounter Date Diagnosis Assessment Notes Treatment Notes Treatment Clinical Notes Jul, Attention deficit disorder (ADD) in adult (ICD-10 - F98.8) [employer] Other 08-14-2023 Evaluation note* Encounter Date Diagnosis Assessment Notes Treatment Notes Treatment Clinical Notes May, Attention deficit disorder (ADD) in adult (ICD-10 - F98.8) [employer] Other 07-17-2023 NoteHNO ID: [id number] Author: Shad Rouse MD Service: ? Author Type: Physician Type: Progress Notes Filed: 05/08/2023 6:26 AM Note Text: Impression: This is Ms. Keturah Cook, a 57 year old female who presents to the [facility] Neurology clinic with the chief complaint of [...] team. Shad Rouse MD Staff, Neuromuscular Center [facility] Neurological [place] HPI: This is Ms. Keturah Cook, a 57 year old female who presents to the [facility] Neurology clinic with the chief complaint of [...] the service which inc (more content not included)...[facility]07-17-[facility] History of Present illness Narrative* Shad Rouse MD - 05/07/2023 10:00 AM EDT Impression: This is Ms. Keturah Cook, a 57 year old female who presents to the [facility] Neurology clinic with the chief complaint of [...] team. Shad Rouse MD Staff, Neuromuscular Center [facility] Neurological [place] HPI: This is Ms. Keturah Cook, a 57 year old female who presents to the [facility] Neurology clinic with the chief complaint of [...] chart, examining the patient. documented in this encounterSycamore Medical Center07-07-2023 Miscellaneous Notes* Telephone Encounter - Jersey Caro - 04/27/2023 11:50 AM EDT Received fax from [facility] with a MRI Brain report dated 04/16/23. Initial appointment with provider is scheduled for 05/07/23. Scanned report into [employer]. documented in this encounterSycamore Medical Center06-28-2023 Evaluation note* Encounter Date Diagnosis Assessment Notes Treatment Notes Treatment Clinical Notes Mar, Abnormal brain MRI (ICD-10 - R90 .89) Mar,Right leg weakness (ICD-10 - R29.898) Mar,Frequent headaches (ICD-10 - R51.9) [employer] Other 06-20-2023 Evaluation note* Encounter Date Diagnosis Assessment Notes Treatment Notes Treatment Clinical Notes Mar, Acute intractable he adache, unspecified headache type (ICD-10 - R51.9) Pt requests pain med for headache. Feels it is related to cervical issues prompting a tension type headache. However, with the headaches and the unilateral weakness - agrees to MRI to r/o mass or MS. Mar,Right leg weakness (ICD-10 - R29.898)As above. [employer] Other 04-13-2023 Evaluation note* Encounter Date Diagnosis Assessment Notes Treatment Notes Treatment Clinical Notes Jan, Attention deficit disorder (ADD) in adult (ICD-10 - F98.8) [employer] Other 02-20-2023 Evaluation note* Encounter Date Diagnosis [...] vesicles. Do not scratch or pick at lesions.Moist cool compresses on affected areas can help with any pain and discomfort. Encouraged patient to follow up with PCP. Patient should inquire about getting shingles vaccine once active lesions havecleared up. Patient verbalized understanding and agreement with treatment plan. Nov,Herpes zoster without complication (ICD-10 - B02.9) Nov,ervical pain (ICD-10 - M54.2)call if neck pain/headache resumes/continues for MRI mentioned in Xray report [employer] Other 02-16-2023 Evaluation note* Encounter Date Diagnosis Assessment Notes Treatment Notes Treatment Clinical Notes Nov, Left cervical radiculopathy (ICD -10 - M54.12) Check Xray for possible pinched nerve. Pain was so severe on 12/05, she almost went to ER. Will add meds and consider PT based on xray results. [employer] Other 04-09-2022 NotePROCEDURE: XR FINGER RIGHT (MIN [...] Signed by: Kale Cheung MD 01/28/22 Final resultGreen Cross HospitalEvaluation + Plan note No data available for this section [facility] HealthEvaluation noteNo InformationNort Pantry Other Evaluation note* Diagnosis Peroneal neuropathy, right- Primary [facility] Diagnosis Onset Date Resolution Status Adult ADHD acuteCervical spondylitis with radiculitisacute [facility] Work Phone: Evaluation note* Diagnosis Onset Date Resolution Status Admit Date Adult ADHD acuteMarch 2024 10:13amLeft flank painacuteMarch 2024 10:13amType 2 diabetes mellitus with hyperglycemiaacuteMarch 2024 10:13am [facility] Work Phone: Evaluation noteNo assessment information available [facility] Work Phone: History general Narrative - Reported* Type Description Date Medical History Gout, unspecified Medical HistoryUncontrolled type 2 diabetes mellitus without complication, without long-term current use of insulinMedical HistoryInsomniaMedical History Elevated liver enzymesMedical HistoryDepression, majorMedical HistoryAnxiety and depressionMedical HistoryAbscess of buttock, leftMedical HistoryPilonidal cyst Medical HistoryLeft lateral knee painMedical HistoryExertional shortness of breathMedical HistoryAttention deficit disorder (ADD) in adultSurgical History [id number] [id number] Historymultiple LaparoscopiesSurgical [id number] HistoryTubal [id number] HistoryCataract surgery [id number] HistorySEE SURGICAL HX [employer] Other Hospital Discharge instructions No data available for this section [facility]Reason for [facility] (narrative)No reason for referral information availableHol[facility] Work Phone: Summary Purpose Family History Relationship Condition Age at Onset Recorded Date/T evangelist father Heart disease Unknown Diabetes mellitusUnknownDeceasedUnknownNot SpecifiedHypertensionUnknownHeart diseaseUnknownsisterMalignant neoplasmUnknownMalignant neoplasm of breastUnknown Relationship Condition Age at Onset Recorded Date/T evangelist father Heart disease Unknown Diabetes mellitusUnknownDeceasedUnknownmotherHypertensionUnknownHeart disease UnknownsisterMalignant neoplasmUnknownMalignant neoplasm of breastUnknown Advance Directives Advance Directive Response Recorded Date/ Time Advance Directives No March 06 8:37am Reason for Referral Reason *FU 04/26 Last OV and MRI results. Diagnosis 1 Abnormal brain MRI ( R90.89) Referral Organization [facility] Referring Provider First Name Ariana Referring Provider Last Name Claudia Referring Provider Specialty Family [facility] Referred Organization [facility] Referred Provider Kvein Pedroza Referred Address [address],[place], [place],[address] Referred Provider Specialty Neurology Referral Priority Routine General Notes Irais Marrero 09:57:01 AM >receiverd today, notes locked, referralf faxed Chief Complaint and Reason for Visit Chief Complaint Amb Documentation sinus infectionReason for VisitAdult ADHD Cervical spondylitis with radiculitis Chief Complaint Admit Date Back Pain December 31, 2024 10: 13am Reason for Visit Admit Date Adult ADHD December 31, 2024 10: 13am Left flank pain December 31, 2024 10: 13am Type 2 diabetes mellitus with hyperglyce fabiola December 31, 2024 10:13am Chief Complaint Admit Date VIRTUAL:Discuss Meds April 30, 2025 9:5 7am Chief Complaint Admit Date VIRTUAL:Discuss Meds April 30, 2025 9:5 7am Headaches June 08, 2025 9: 28am Reason for Visit Admit Date Class 1 obesity with body ma ss index (BMI) of 33.0 to 33.9 in adult April 30, 2025 9:57am Type 2 diabetes mellitus with hyperglyce fabiola April 30, 2025 9:57am Cervical spondylitis with radiculitis [place] 2024 9:28am Additional Source Comments INFORMATION SOURCE (unrecogn ized section and content) DATE CREATED AUTHOR 11/15/2018 [facility] DATE CREATED AUTHOR AUTHOR'S ORGANIZ ATION 01/30/2022 [facility] DATE CREATED AUTHOR AUTHOR'S ORGANIZ ATION 02/15/2022 [facility] DATE CREATED AUTHOR AUTHOR'S ORGANIZ ATION 12/14/2022 [facility] DATE CREATED AUTHOR AUTHOR'S ORGANIZ ATION 07/07/2023 [facility] DATE CREATED AUTHOR AUTHOR'S ORGANIZ ATION 09/05/2023 [facility] EPIC REASON FOR VISIT (unrecogniz ed section and content) ReasonCommentsNew Patient2 month history of right leg numbnessBoth legs feel weak (quiver)ReasonCommentsReceived Outside Medical Records Source Comments (unrecognize d section and content) In the event this informatio n is protected by the Federal Confidentiality of Alcohol and Drug Abuse Patient Records regulations: The Federal rules restrict any use of the information to criminally investigate or prosecute any alcohol or drug abuse patient.[facility] CenterIn the event this information is protected by the Federal Confidentiality of Alcohol and Drug Abuse Patient Records regulations: The Federal rules restrict any use of the information to criminally investigate or prosecute any alcohol or drug abuse patient.[facility] Care Teams (unrecognized sec tion and content) Team Status: Active Member Role Status Dates Airana Taylor MD Primary Care Provider Active Team Status: Inactive Member Role Status Rubio Taylor MD Primary Care Provide r, Attending Provider Active Start: December 31, 2024 End: December 31, 2024Team MemberRelationshipSpecialtyStart DateEnd Date Ariana Taylor MD [address] [place] [id number] PCP - General05/25/09Team MemberRelationshipSpecialtyStart DateEnd Date Ariana Taylor MD [address] [place] [id number] PCP - General05/25/09 Team Status: Active Member Role Status Rubio Taylor MD Primary Care Provider Active Start: December 31, 2023 Emilee Sims ZEYNEPAAtvictorinamao ProviderActiveStart: December 31, 2023 Team Status: Inactive Member Role Status Rubio Taylor MD Primary Care Provide r, Attending Provider Active Start: March 25, 2024 End: March 25, 2024 Team Status: Inactive Member Role Status Rubio Taylor MD Primary Care Provider Active Start: April 30, 2025 End: April 30, 2025Anabella Morales ProviderActiveStart: April 30, 2025 End: April 30, 2025 Team Status: Inactive Member Role Status Rubio Taylor MD Primary Care Provider Active Start: June 08, 2025 End: June 08, 2025Anabella Morales ProviderActiveStart: June 08, 2025 End: June 08, 2025 Goals (unrecognized section and content) Goals may [...] BE BASED ON THE PRIMARY CLINICAL RECORDS. [facility] [employer] [facility]. provides no warranty or guarantee of the accuracy or completeness of information in this document.
--- OUTSIDE RECORDS SUMMARY | 2025-11-02 18:59 | XMS_ITS | CCD ---
Author Organization [facility] Care Team Providers Care Skip Tracer Name Role Phone PHYSICIAN, DEFAULT Admitting Unavailable [...] CLAUDIA, DR ARIANA Orantes Primary Care Unavailable FRANKLIN, DR KALE Cheung Consulting Unavailable CLAUDIA, DR [...] Unavailable Ariana Taylor MD Primary Care Provider SHAD ROUSE Attending Unavailabl ARIANA Sheldon Primary Care Unavailable PRITESH DEL VALLE Attending Unavailable Ariana Taylor MD Primary Care Provider [phone] Ariana Taylor MD Attending Provider [phone] Allergies Allergy ClassificationReported Allergen(s)Allergy TypeDate of OnsetReaction(s) Facility (17 sources)Desvenlafaxine; Translations: [desvenlafaxine]Drug Istadfu86-82-7887 Unknown (qualifier value)[facility] (17 sources)metFORMIN; Translations: [metformin]Drug Vzfrsdm50-02-0487Nculkiw (qualifier value)[facility] (4 sources)patient allergy list reviewed by nurse or physiciaPropensity to adverse lzmivdtqh77-07-8181Bwjoubf:ePAR Other (4 sources)Allergies ReconciledPropensity to adverse reactionsUnknoRevetto Other Medications Current Medications MedicationDrug Class(es)DatesSig (Normalized)Sig [...] 5 mg oral tablet (20 sources)Opioid AgonistStart: 95-98-4263kdwn 1 tablet by mouth every six hoursHydrocodone-Acetaminophen 5-325 mg tablet Active 1 TAB PO Every 6 hours 10 03June 08, 2025 Complies with drug therapyStart: 12-31-2024 End: 44-73-8362ecsy 1 tablet by mouth every six hoursHydrocodone-Acetaminophen 5-325 mg tablet Discontinued 1 TAB PO Every 6 hours 10 03December 31ugu2024 9:55amStart: 03-12-2024 End: 30-25-7889ngzw 1 tablet by mouth every six hours as neededHydrocodone- Acetaminophen 5-325 mg tablet Discontinued 1 TAB PO Every 6 hours 18 05March 25, 2024 September 25, 2024 11:02am FreeTextSi tablet as needed Orally every 6 hrs; Note: Source Status: Start; Refills: 0; Qty: 28 Tablet; Provider: Claudia Lane EStart: 40-72-5875izjb 1 tablet by mouth every six hoursHYDROcodone- Acetaminophen 5-325 MG 1 tablet as needed Orally every 6 hrs for 7 days Mar, ActiveStart: 76-33-8555vxcl 1 tablet by mouth every eight hoursHYDROcodone- Acetaminophen 5-325 MG 1 tablet as needed Orally every 8 hrs for 7 days Nov, ActiveComment on above:Take 1 tablet by mouth every 8 hours as needed for pain.amitriptyline hydrochloride 25 mg oral tablet (1 source)Tricyclic AntidepressantStart: 54-44-1738uhbb 1 mg by mouth once daily at bedtimeamitriptyline 25 mg Tab mg tab(s), Oral, Once a day (at bedtime), Refills(s) 0 Start Date: 12/16/20 Status: Gsbjuka88 hr amphetamine aspartate 5 mg / amphetamine sulfate 5 mg / dextroamphetamine saccharate 5 mg / de xtroamphetamine sulfate 5 mg extended release oral capsule (10 sources)Central Nervous System StimulantStart: 44-16-8161npyx 1 capsule by mouth once daily, then take 1 capsule by mouth every twenty-four hours Dextroamphetamine-Amphetamine (Adderall Xr) 20 mg capsule,extended release 24hr Active 20 MG PO Daily June 08, 2025 Complies with drug therapyStart: 03-06-2025 End: 59-44-7238buaa 1 capsule by mouth once daily, then take 1 capsule by mouth every twenty-four hoursDextroamphetamine-Amphetamine (Adderall Xr) 20 mg capsule,extended release 24hr Discontinued 20 MG PO Daily April 22, 2025 June 08, 2025 9:54amStart: 12-15-2024 End: 91-56-4338kalb 1 capsule by mouth once daily in the morning, then take 1 capsule by mouth every twenty-four hoursDextroamphetamine-Amphetamine (Adderall Xr) 15 mg capsule,extended release 24hr Discontinued 15 MG PO Every morning January 28, 2025 March 06, 2025 8:28amatorvastatin 20 mg oral tablet (6 sources)HMG-CoA Reductase InhibitorStart: 92-05-0327tsvi 1 tablet by mouth once dailyatorvastatin 20 mg Tab 20 mg = 1 tab(s), Oral, Daily, # 30 tab(s), Refills(s) 0 Start Date: 12/16/20atus: Intqaan46 hr buPROPion hydrochloride 300 mg extended release oral tablet (4 sources)AminoketoneStart: 32-93-4146wpzw 1 tablet by mouth once daily Wellbutrin SR 150 mg Tab-ER 150 mg = 1 tab(s), Oral, Daily, Depression Start Date: 12/05/19 Status: OrderedStart: 38-80-1284uhwdhaiio hcl(WELLBUTRIN XL 300 MG 24 HR TAB) Take one(1) tablet daily. 0 07/29/2009 ActiveComment on above:Take one(1) tablet daily.0.5 ml dulaglutide 1.5 mg/ml auto-injector (1 source)GLP-1 Receptor AgonistStart: 17-92-4367Ioukjetyw Pen 0.75 mg/0.5 mL subcutaneous solution SubCutaneous, qWeek, Refills(s) 0 Start Date: 12/16/20 Status: OrderedFreeStyle Domenica 2 [place] - (5 sources)FreeStyle Domenica 2 [place] - use as directed for 28 ActiveFreeStyle Domenica 2 Sensor - (5 sources)FreeStyle Domenica 2 Sensor - as directed Activemounjaro 5 mg/0.5ml solution pen-injector (1 source)inject 0.5 mL by subcutaneous injection every weekMounjaro 5 MG/0.5ML INJECT 0.5 ML UNDER THE SKIN ONCE A WEEK for 84 ActivepredniSONE 20 mg oral tablet (6 sources)Start: 82-99-8948xhuv 1 tablet by mouth twice dailyPrednisone 20 mg tablet Active 20 MG PO Twice daily June 08, 2025 12:00am Complies with drugtherapyStart: 58-68-3053gvxg 2 tablets by mouth every twenty-four hours predniSONE 20 MG 2 tablets Orally Once a day for 5 days Nov, Active pregabalin 75 mg oral capsule (5 sources)Start: 89-77-3956mvve 1 capsule by mouth every twelve hoursLyrica 75 MG 1 capsule Orally Twice a day for 14 days Nov, ActiveTirzepatide (Weight Loss) (2 sources)Start: 09-98-9566Urreemafvzv (Weight Loss) (Zepbound) 2.5 mg/0.5 mL solution Active 2.5 MG SUBCUT every week 2 May 22, 2025 3:30pm Complies with drug therapyStart: 05-06-2025 End: 61-91-1660Emkkmoccqfu (Weight Loss) (Zepbound) 2.5 mg/0.5 mL solution Discontinued 2.5 MG SUBCUT every week May 06, 2025 12:00am May 22, 2025 3:30pmtiZANidine 2 mg oral tablet (20 sources)Central alpha-2 Adrenergic AgonistStart: 67-56-6647uwji 1 tablet by mouth every eight hours as neededTizanidine 2 mg tablet Active 2 MG PO Every 8 hours as needed for muscle spasticity May 12:00am Complies with drug therapyStart: 03-12-2024 End: 88-01-0351cqux 1 tablet by mouth three times daily as neededTizanidine 4 mg tablet Discontinued 4 MG PO Three times daily as needed for muscle spasticity March 25, 2024 11:10am September 25, 2024 11:02am FreeTextSi tablet as needed Orally Three times aday; Note: Source Status: Taking; Qty: 30 Tablet; Provider: Claudia Lane EStart: 85-20-0533xyqr 1 tablet by mouth every eight hourstiZANidine [...] Zoster Virus Nucleoside Analog DNA Polymerase InhibitorStart: 65-20-4494pkqm 1 tablet by mouth every eight hoursValtrex 1 GM 1 tablet Orally tid for 7 days Nov, Active Completed/Discontinued Medications MedicationDrug Class(es)DatesSig (Normalized)Sig (Original)azithromycin 250 mg oral tablet (3 sources)Macrolide AntimicrobialStart: 09-25-2024 End: 11-26-3761Rgueqmcfngdt 250 mg tablet Discontinued 0 PO .COMPLEX September 25, 2024 1:00am December 31, 2024 10:18am For 250 mg dose pack: take 500 mg today (day 1), then 250 mg for 4 days (days 2-5) POlisdexamfetamine dimesylate 50 mg oral capsule (20 sources)Central Nervous System StimulantStart: 03-25-2024 End: 02-78-7604yzdk 1 capsule by mouth once dailyLisdexamfetamine 50 mg capsule Discontinued 50 MG PO Daily October 20, 2024November 1:05pm Start: 12-31-2023 End: 15-88-2829cbuo 1 capsule by mouth once dailyLisdexamfetamine 40 mg capsule Discontinued 40 MG PO Daily December 31, 2023 January 30, 2024 12:59pm Start: 85-59-8113udar 1 capsule by mouth every twenty-four hoursVyvanse 40 MG 1 capsule in the morning Orally Once a day for 30 days Oct, ActiveStart: 26-84-5964vrag 1 capsule by mouth every twenty-four hoursVyvanse 40 MG 1 capsule in the morning Orally Once a day for 30 days Sep, ActiveStart: 28-63-6907czwx 1 capsule by mouth every twenty-four hoursVyvanse 40 MG 1 capsule in the morning Orally Once a day for 30 days Jul, ActiveStart: 62-47-2123fvln 1 capsule by mouth every twenty-four hoursVyvanse 40 MG 1 capsule in the morning Orally Once a day for 30 days May, ActiveStart: 14-96-1433bwix 1 capsule by mouth once daily in the morningVYVANSE 40 mg capsule TAKE 1 CAPSULE BY MOUTH once a day IN THE MORNING FOR 30 DAYS 04/18/2023 Act iveStart: 38-25-3764bcgi 1 capsule by mouth every twenty-four hoursVyvanse 40 MG 1 capsule in the morning Orally Once a day for 30 days February, Active Start: 74-95-6549azjb 1 capsule by mouth every twenty-four hoursVyvanse 40 MG 1 capsule in the morning Orally Once a day for 30 days Jan, ActiveStart: 73-14-8662tlnd 1 capsule by mouth every twenty-four hoursVyvanse 40 MG 1 capsule in the morning Orally Once a day for 30 days Dec, ActiveStart: 59-84-3012varc 1 capsule by mouth every twenty-four hoursVyvanse 40 MG 1 capsule in the morning Orally Once a day for 30 days Oct, ActiveComment on above:TAKE 1 CAPSULE BY MOUTH once a day IN THE MORNING FOR 30 DAYSmeloxicam 15 mg oral tablet (20 sources)Nonsteroidal Anti-inflammatory DrugStart: 01-03-2024 End: 91-43-0791mrks 1 tablet by mouth once dailyMeloxicam 15 mg tablet Discontinued 15 MG PO Daily January 03, 2024 9:55am December 12, 2024 4: 37pmStart: 12-18-2023 End: 62-11-5389bdog 1 tablet by mouth once dailyMeloxicam 15 mg tablet Discontinued 0 .ROUTE .COMPLEX December 18, 2023 2:12pm January 03, 2024 9:42am TAKE 1 TABLET BY MOUTH ONCE DAILYStart: 12-18-2023 End: 24-07-2308aiul 1 tablet by mouth once dailyMeloxicam 15 mg tablet Discontinued 15 MG PO Daily December 18, 2023 1:00am December 18, 2023 2:12pmStart: 56-68-2661ihli 1 tablet by mouth once dailyMobic 15 mg Tab 15 mg = 1 tab(s), Oral, Daily, Arthritis Start Date: 12/05/19 Status: OrderedComment on above:Take 15 mg by mouth.metFORMIN hydrochloride 500 mg oral tablet (2 sources)BiguanideStart: 02-63-6593CCNHJAPHJ 500 MG TAB Take two(2) tablets daily. 0 07/29/2009 ActiveComment on above:Take two(2) tablets daily.modafinil 200 mg oral tablet (2 sources)Sympathomimetic-like AgentStart: 66-06-5352kzcrbtpsn(PROVIGIL 200 MG TAB) once daily 0 07/29/2009 ActiveComment on above:once dailytamsulosin hydrochloride 0.4 mg oral capsule (2 sources)alpha-Adrenergic BlockerStart: 12-31-2024 End: 19-03-3869udyp 1 capsule by mouth once dailyTamsulosin (Flomax) 0.4 mg capsule Discontinued 0.4 MG PO Daily December 31, 2024 12:00am June 08, 2025 9:34amTirzepatide (14 sources)Start: 11-19-2024 End: 22-41-1819jsbium 0.5 mL by subcutaneous injection every weekTirzepatide (Mounjaro) 5 mg/0.5 mL pen injector Discontinued 0 .ROUTE .COMPLEX November 1959:28am April 30, 2025 1:12pm INJECT 0.5 ML UNDER THE SKIN ONCE A WEEK Start: 49-60-0767yusdet 0.5 mL by subcutaneous injection every weekTirzepatide (Mounjaro) 5 mg/0.5 mL pen injector Active 0 .ROUTE .COMPLEX November 19, 2024 9:28am INJECT 0.5 ML UNDER THE SKIN ONCE A WEEK Complies with drug therapy Start: 13-31-5811nkxxba 0.5 mL by subcutaneous injection every weekTirzepatide (Mounjaro) 5 mg/0.5 mL pen injector Active 0 .ROUTE .COMPLEX November 19, 2024 9:28am INJECT 0.5 ML UNDER THE SKIN ONCE A WEEKStart: 08-27-2024 End: 99-69-8390mjjtdp 0.5 mL by subcutaneous injection every weekTirzepatide (Mounjaro) 5 mg/0.5 mL pen injector Discontinued 0 .ROUTE .COMPLEX August 2742:59pm November 19, 2024 9:28am INJECT 0.5 ML UNDER THE SKIN ONCE A WEEKStart: 01-03-2024 End: 22-33-9785jubetz 0.5 mL by subcutaneous injection every weekTirzepatide (Mounjaro) 5 mg/0.5 mL pen injector Discontinued 0 .ROUTE .COMPLEX January 03, 2024 12:04pm August 27, 2024 2:59pm INJECT 0.5 ML UNDER THE SKIN ONCE A WEEK Start: 17-65-2310ctbsds 0.5 mL by subcutaneous injection every weekTirzepatide (Mounjaro) 5 mg/0.5 mL pen injector Active 0 .ROUTE .COMPLEX January 03, 2024 12:04pmINJECT 0.5 ML UNDER THE SKIN ONCE A WEEKStart: 01-03-2024 End: 43-52-8578Xkxiaqrteim (Mounjaro) 5 mg/0.5 mL pen injector Discontinued 5 MG SUBCUT every week January 03, 2024 12:00am January 03, 2024 12:04pmTirzepatide (2 sources)Start: 04-30-2025 End: 02-50-3449obueyy 0.5 mL by subcutaneous injection every weekTirzepatide 2.5 mg/0.5 mL pen injector Discontinued 0 .ROUTE .COMPLEX 2 April 30, 2025 1:15pm 2024 11:05am INJECT 0.5 ML UNDER THE SKIN ONCE A WEEKStart: 04-30-2025 End: 57-81-0707cpbfsm 0.5 mL by subcutaneous injection every weekTirzepatide [...] sources)Anxiety; Translations: [Mixed anxiety and depressive disorder] 46-65-2086BbhsamlHkuguinhs-deficit, conduct, and disruptive behavior disorders (1 source)Attention deficit hyperactivity disorder, predominantly inattentive ihyz03-53-0871TcmzzooJeuvxyujz-tkmuhuy, conduct, and disruptive behavior disorders (4 sources)Adult attention deficit hyperactivity disorder ; Translations: [Attention-deficit hyperactivity disorder, unspecified type]34-53-7405Ftrgmyv Attention-deficit, conduct, and disruptive behavior disorders (2 sources)Attention-deficit hyperactivity disorder, unspecified type; Translations: [Attention deficit disorder with hyperactivity]26-01-2170Kyezrpu Diabetes mellitus with complications (20 sources)Type 2 diabetes mellitus with hyperglycemia; Translations: [Hyperglycemia due to type 2 diabetes mellitus]Onset: ChronicDiabetes mellitus without complication (13 sources)Type 2 diabetes mellitus; Translations: [Type 2 diabetes mellitus with hyperglycemia]32-63-8289SvchwmrOvhukumpj usually diagnosed in infancy, childhood, or adolescence (20 sources)Other specified behavioral and emotional disorders with onset usually occurring in childhood and adolescence; Translations: [Behavioral and emotional disorder with onset in childhood]ChronicGout and other crystal arthropathies (17 sources)Gout; Translations: [Gout, unspecified]Onset: ChronicMood disorders (20 sources)Depressive disorder; Translations: [Major depression, single episode]Onset: 135982-71-6989JwcltolMsemj circulatory disease (4 sources)Elevated blood-pressure reading without diagnosis of hypertension; Translations: [Elevated blood-pressure reading, without diagnosis of hypertension]EpisodicOther connective tissue disease (2 sources)Other symptoms and signs involving the musculoskeletal systemEpisodic Other liver diseases (12 sources)Elevated liver enzymes level; Translations: [Abnormal levels of other serum enzymes]EpisodicOther lower respiratory disease (1 source)Dyspnea on gowwczxx04-26-1768NcolmbwvErvwu lower respiratory disease (16 sources)Dyspnea; Translations: [Shortness of breath]EpisodicOther nervous system disorders (1 source)Neuropathy of lower limb; Translations: [Lesion of lateral popliteal nerve, right lower limb]44-22-5526KamegwrNdxft non-traumatic joint disorders (1 source)Hip zlaa07-56-3705BkmnfshpAroro non-traumatic joint disorders (20 sources)Arthralgia of the lower leg; Translations: [Pain in left knee]Onset: 82-76-7377KohltnzfUxouk nutritional; endocrine; and metabolic disorders (2 sources)Morbid obesity; Translations: [Morbid (severe) obesity due to excess calories]Onset: 288106-50-1727UuaxaooCtjwc nutritional; endocrine; and metabolic disorders (10 sources)Obesity; Translations: [Obesity, unspecified]Onset: 03-18-2015 37-81-4611GozfbuvQyxby nutritional; endocrine; and metabolic disorders (8 sources)Body mass index 40+ - severely obese; Translations: [Body mass index (BMI) 40.0-44.9, adult]Onset: 79-54-5688OsxmjaoHmrgy nutritional; endocrine; and metabolic disorders (16 sources)Obese class II; Translations: [Body mass index 39.0-39.9, adult] Onset: 24-61-0974EipmnrtNatks nutritional; endocrine; and metabolic disorders (4 sources)Body mass index 30+ - obesity; Translations: [Body mass index 36.0- 36.9, adult]Onset: 20-91-8717TueddguHzilh nutritional; endocrine; and metabolic disorders (4 sources)Obese class I; Translations: [Body mass index (BMI) 33.0-33.9, adult] ChronicOther screening for suspected conditions (not mental disorders or infectious disease) (9 sources)Liver enzymes abnormal; Translations: [Encounter for screening for osteoporosis]Onset: 174927-36-5094OpkrfgyhMnvmp upper respiratory infections (3 sources)Upper respiratory infection; Translations: [Acute upper respiratory infection, unspecified]16-73-6216SinnzwucLrrusqyo codes; unclassified (17 sources)Insomnia; Translations: [Insomnia, unspecified]Onset: 03-02-2016 05-84-1709PyeiswueNnrp and subcutaneous tissue infections (20 sources)Pilonidal cyst; Translations: [Pilonidal cyst without abscess] EpisodicSpondylosis; intervertebral disc disorders; other back problems (6 sources)Cervical arthritis; Translations: [Unspecified inflammatory spondylopathy, cervical region]08-02-2822QhvuteuKktgi infection (14 sources)Postherpetic neuralgia; Translations: [Other postherpetic nervous system involvement]Episodic Past or Other Problems Problem ClassificationProblemDateDocumented DateEpisodic/ChronicCardiac dysrhythmias (4 sources)Palpitations; Translations: [Palpitations]Onset: 57-92-5693Lnpttuit Diabetes mellitus without complication (4 sources)Hyperglycemia; Translations: [Hyperglycemia, unspecified]Onset: 07-19-7967JpzrigjeLknarqgn; including migraine (1 source)Headache; including migraineNonspecific chest pain (4 sources)Chest pain; Translations: [Chest pain, unspecified]Onset: 09-13-2015 EpisodicOther connective tissue disease (4 sources)Spasm; Translations: [Spasm of muscle]Onset: 23-74-4287OhftpzvrDdxtq non-traumatic joint disorders (4 sources)Arthralgia of the pelvic region and thigh; Translations: [Pain in joint, pelvic region and thigh]Onset: 03-24-5326ZlicmpnqJiezj nutritional; endocrine; and metabolic disorders (4 sources)Body mass index 25-29 - overweight; Translations: [Body mass index 27.0-27.9, adult]Onset: 19-41-1170HlegqhmhFxqym skin disorders (4 sources)Alopecia; Translations: [Nonscarring hair loss, unspecified]Onset: 01-24-4298PccqpawvQjlyfedv codes; unclassified (4 sources)Other specified health status; Translations: [OTHER SPECIFIED HEALTH STATUS]Onset: 19-57-1634LcxtshzdJmaeancx codes; unclassified (1 source)Family history of malignant neoplasm of breast; Translations: [FAMILY HX MALIG NEOPLASM OF BREAST]Onset: 81-91-1061AyckalsgTxtoojwz codes; unclassified (1 source)Family history of malignant neoplasm of kidney; Translations: [FAM HX MALIGNANT NEOPLASM KIDNEY]Onset: 82-86-3764KpjrehckJgcxjhbszqp; intervertebral disc disorders; other back problems (10 sources)Radiculopathy, cervical region; Translations: [Cervicalgia]Onset: 96-81-4462MijjfguiRuwxjmavefcx (1 source)Frequent headaches R51.9 Results Test NameValueInterpretationReference RangeFacilityCNPNon 35-06-4309TVSD Telephone (NENMMN) KETURAH COOK ([id number]) 1965 F Date Time Provider Department 05/09/23 SHAD ROUSE NEBANNER During your visit today, we recorded the following information about you: Lilian Skinner RN 05/09/2023 9:22 AM Signed Office notes faxed to pts [facility] Dr Ariana Taylor [phone] Lilian Skinner RN BSN [facility] [place] Allergies As of Date: 05/09/2023 (No Known [...] 07/29/2009 Encounter Status:Closed by LILIAN SKINNER on 05/11/23NoSt. Elizabeth Hospitaltravis 01-43-6877WFJRGbfmwb Visit (CHADS) KETURAH COOK ([id number]) 1965 F Date Time Provider Department 05/07/23 10:00 AM SHAD ROUSE During your visit today, we recorded the following information about you: Pulse Blood pressure Weight Height 88/minute 132/82 68.9 kg 1.676 m Shad Rouse MD 05/08/2023 6:26 AM Signed Impression: This is Ms. Keturah Cook, a 57 year old female who presents to the [facility] Neurology clinic with the chief complaint [...] team. Shad Rouse MD Staff, [facility] [place] HPI: This is . Keturah Cook, a 57 year old female who presents to the [facility] Neurology clinic with the chief complaint [...] software and is inhere (more content not included)...NormalGood Samaritan HospitalCNPNon 27-85-8555RUUSSmeeipkan (NIQ) KETURAH COOK ([id number]) 1965 F Date Time Provider Department 04/27/23 SHAD ROUSE NIBeny During your visit today, we recorded the following information about you: Jersey Caro 04/27/2023 11:54 AM Signed Received fax from [facility] with a MRI Brain report dated 04/16/23. Initial appointment with provider is scheduled for 05/07/23. Scanned report into [employer]. Allergies As of Date: 04/27/2023 (No Known [...] 07/29/2009 Encounter Status:Closed by JERSEY CARO on 07/05/23NoWright-Patterson Medical CenterXR CSPINE 2_3 VIEWSon 49-90-6139UK CSPINE 2_3 VIEWSEXAMINATION: XR CSPINE 2_3 VIEWS [...] Electronically authenticated by: GALLO GUPTA Date: 2022-12-08 09:38NormHarrison Community HospitalNICOTINE METABOLITESon 19-59-3292Tfowovhh<1.0NoHenry County Hospital on above:Result Comment: This test was developed and its performance characteristics determined by [facility]. It has not been cleared or approved by the Food and Drug Administration. Cotinine levels greater than 20.0 are consistent with the use of tobacco or tobacco cessation products.Performed By: #### NICTBLD #### [facility] [address] [place] [address] Dr. Deepti Maurootine<1.0NoHenry County Hospital on above:Result Comment: This test was developed and its performance characteristics determined by [facility]. It has not been cleared or approved by the Food and Drug Administration. Nicotine levels greater than 2.0 are consistent with the use of tobacco or tobacco cessation products.Performed By: #### NICTBLD #### [facility] [address] [place] [address] Dr. Deepti SmithGLYCOHEMOGLOBIN A1Con 44-69-7501TRP RECOMMENDATIONSEE BELOWDetwiler Memorial HospitalCompromedica [facility] on above:Result Comment: ADA RECOMMENDED LIMIT 4.0 - 6.0 ADA THERAPEUTIC TARGET < 7.0 ACTION SUGGESTED > 7.0Performed By: #### A1C #### [facility] [address] [place] [address] Dr. Deepti SmithGlucose [Mass/Vol]111 mg/dLNoHenry County Hospital on above:Performed By: #### A1C #### [facility] [address] [place] [address] Dr. Deepti SmithHbA1c (Bld) [Mass fraction]5.5 %Normal4.5-6.2[facility] on above:Performed By: #### A1C #### [facility] [address] [place] [address] Dr. Deepti SmithLIPID PROFILEon 72-50-7850NZSY-HDL RATIO NORMSEE BELOWNormalThe Baldwin HospitalComment on above:Result Comment: 3.3 - 4.4 LOW RISK 4.4 - 7.1 AVERAGE RISK 7.1 - 11.0 MODERATE RISK >11.0 HIGH RISKPerformed By: #### LIPID #### [facility] [address] [address] [address] Deepti SmithCholesterol [Mass/Vol]183 mg/dLNormal<=200[facility] Comment on above:Performed By: #### LIPID #### [facility] [address] [address] [address] Deepti SmithCholesterol in HDL [Mass/Vol]45 mg/tSTcrtpz14-58YpyWexner Medical CenterComment on above:Performed By: #### LIPID #### [facility] [address] [place] [address] Dr. Deepti SmithCholesterol in LDL [Mass/Vol]115.8 mg/dLMercy Health St. Anne HospitalComment on above:Performed By: #### LIPID #### [facility] [address] [place] [address] Dr. Deepti Luuesterrakan.total/Cholesterol in HDL [Mass ratio]4.1 {ratio} NormalWexner Medical CenterComment on above:Performed By: #### LIPID #### [facility] [address] [place] [address] Dr. Deepti SmithHDL NORMAL> or = 60 mg/dl - LOW CARDIOVASCULAR RISK <40 mg/dl - HIGH CARDIOVASCULAR RISKMercy Health St. Anne HospitalComment on above:Performed By: #### LIPID #### [facility] [address] [place] [address] Dr. Deepti SmithLDL CALC NORMALSEE BELOWMercy Health St. Anne HospitalComment on above:Result Comment: <100 mg/dl OPTIMAL 100 - 129 mg/dl NEAR OR ABOVE OPTIMAL 130 - 159 mg/dl BORDERLINE HIGH 160 - 189 mg/dl HIGH >190 mg/dl VERY HIGH Performed By: #### LIPID #### [facility] [address] [place] [address] Dr. Deepti SmithTriglyceride [Mass/Vol]111 mg/dLNormal<=150[facility] Comment on above:Performed By: #### LIPID #### [facility] [address] [place] [place] [address] Dr. Deepti SchwabLDL CALC22.2 mg/dLNoEast Ohio Regional HospitalComment on above: Performed By: #### LIPID #### [facility] [address] [place] [address] Dr. Deepti SmithCALCIUMon 44-97-5185Hrgajsm [Mass/Vol]9.0 mg/dLNormal8.5-10.1Wexner Medical CenterComment on above:Performed By: #### DEANDRE [place] #### [facility] [address] [place] [address] Dr. Deepti SmithCREATININEon 84-23-4592Raefxsbvfl [Mass/Vol]0.81 mg/dLNormal 0.55-1.02Wexner Medical CenterComment on above:Performed By: #### DEANDRE, [place] #### [facility] [address] [place] [address] Dr. Deepti ClementGFR-AF CHINESE>60Normal>=60W[facility]ner Medical CenterComment on above:Performed By: #### DEANDRE, [place] #### [facility] [address] [place] [address] Dr. Deepti ClementGFR-NON AF CHINESE>60Normal>=60[facility]ner Medical CenterComment on above:Performed By: #### DEANDRE, [place] #### [facility] [address] [place] [address] Dr. Deepti SmithVITAMIN D 25 OHon 74-57-4699QVM D 25-OH47.4 ng/mLNormalWexner Medical CenterComment on above:Performed By: #### VITAD #### [facility] [address] [place] [address] Dr. Deepti Armenta RANGESSEE BELOWMercy Health St. Anne HospitalComment on above: Result Comment: <20 ng/mL Vit D deficient 20 - <30 ng/mL Vit D insufficient 30 - 100 ng/mL Vit D sufficient >100 ng/mL Potential ToxicityPerformed By: #### VITAD #### [facility] [address] [address] [address] Deepti SmithXR DEXA BONE DENSITYon 08-54-5057XE DEXA BONE DENSITYEXAMINATION: XR DEXA BONE DENSITY, [...] Electronically authenticated by: GALLO GUPTA Date: 2022-04-28 16:[address] [place], [place] [address]MG MAMM SCREEN 3D WILIAM CADon 56-71-4915JZ MAMM SCREEN 3D WILIAM CAD Patient: KETURAH COOK Exam Date: 03/03/2022 : 1965 Gender:F Ordering : DR ARIANA TAYLOR M.D. Admission #: [id number] Family : Order #: [id number] CLICK HERE TO VIEW EXAM RADIOLOGY REPORT [...] breast cancer at age 76. LOCATION: [facility] BREAST COMPOSITION: Heterogeneously dense, which may obscure [...] by: Kale Gonzalez MD on 03/03/2022 at 13:48[facility] Vaginitis/Vaginosis, DNA Probeon 54-57-6360Tdgfyce sp rRNA Probe Ql (Vag fld) PositiveAbnormalNegativeThe University Of Toledo Medical CenterComment on above:Performed By: #### [id number] #### [facility] [address], [place] [address]Y. vaginalis rRNA Probe Ql (Genital specimen)NegativeInvalid Interpretation CodeNegativeThe University Of Toledo Medical CenterComment on above:Performed By: #### [id number] #### [facility] [address], [place] [address]C. vaginalis rRNA Probe Ql (Genital specimen)NegativeInvalid Interpretation CodeNegativeThe University Of Toledo Medical CenterComment on above:Result Comment: A duplicate report has been generated due to demographic update of the patient's Date of , Age, Gender, and/or Specimen Date. Please review patient results, reference intervals, and calculated results that may have been affected by this change. Performed at: [facility] [id number] PhD Cyn KooPerformed By: #### [id number] #### [facility] [address], [place] [address]Yhoveirnf Orderon 34-48-5013Ligxqkzeb Order [id number]#1.00CD:[address] [place], [place] [address]Physician Orderon 95-18-9363Pbqkabjgv Order [id number]#1.00CD:[address] [place] [address] Vital Signs Date TimeVital SignValuePerforming QrroijoewKumyflgu46-74-9204 09:30-0400Body .64 cmAriana Taylor MD Work Phone: [phone]08-18-2025 09:30-0400 Body mass index (BMI) [Ratio]36.6 kg/d6IifcabAriana Taylor MD Work Phone: [phone] [address]08-18-2025 09:30-0400 Body bizafl896.96 kgAriana Taylor MD Work Phone: [phone] [address]08-18-2025 09:30-0400 Diastolic blood vvpkowrd27 mm[Hg]Ariana Taylor MD Work Phone: [phone]08-18-2025 09:30-0400 Heart rate94 /minAriana Taylor MD Work Phone: [phone] [address]08-18-2025 09:30-0400 Systolic blood mm[Hg]Ariana Taylor MD Work Phone: [phone]07-10-2025 13:13-0400 Body cyfwgx823.64 cmAriana Taylor MD Work Phone: [phone]07-10-2025 13:13-0400 Body mass index (BMI) [Ratio]33.9 kg/d9QocoqlAriana Taylor MD Work Phone: [phone] [address]07-10-2025 13:13-0400 Body busiar53.25 kgAriana Taylor MD Work Phone: [phone]03-12-2025 10:140400 Body pfwobs351.64 cmUniversity Hospitals [facility]03-12-2025 10:14-0400Body mass index (BMI) [Ratio]34.2 kg/t7BedgqfsfxUniversity Hospitals Samaritan Medical Center03-12-2025 10:14040Body abhxwn73.16 kgUniversity Hospitals Samaritan Medical Center03-12-2025 10:040Diastolic blood hujluiig05 mm[Hg][facility] 12-31-2024 10:14-0400Heart ioct353 /[facility] 12-31-2024 10:14-0400Systolic blood mm[Hg][facility]06-04-2024 10:54-0400Body ydjnpo900.64 cmUniversity Hospitals Samaritan Medical Center06-04-2024 10:54-0400Body mass index (BMI) [Ratio]30.7 kg/u8HgyyueloyUniversity Hospitals Samaritan Medical Center06-04-2024 10:54-0400Body yyllfo25.18 kgUniversity Hospitals Samaritan Medical Center06-04-2024 10:54-0400Diastolic blood aphtmqoz61 mm[Hg] [facility]06-04-2024 10:54-0400Heart rate92 /[facility]06-04-2024 10:54-0400Systolic blood cobtlncx652 mm[Hg] [facility]07-17-2023 09:48-0400Body odcszc017.6 cm Shad Rouse MD Work Phone: [phone] Doctors HospitalHysqhg39-72-0185 09:48-0400Body fgkpju91.95 kgShad Rouse MD Work Phone: [phone] Doctors HospitalIgrahg39-47-1021 09:48-0400Diastolic blood deohjhza86 mm[Hg]Shad Rouse MD Work Phone: [phone] Doctors HospitalQzfxrb66-80-9492 09:48-0400Heart rate88 /min Shad Rouse MD Work Phone: [phone] Doctors HospitalTcvbwu72-24-0757 09:48-9133XbQ9% (BldA) [Mass fraction]100 %Shad Rouse MD Work Phone: [phone] healthand Nagntx90-02-9994 09:48-0400Systolic blood nlsobsge910 mm[Hg]Shad Rouse MD Work Phone: [phone] Doctors HospitalIwblhw81-80-4500 10:15-0400Body fgaeiw647.64 cmAriana Taylor Other [employer] Other 06-20-2023 10:15-0400Body mass index (BMI) [Ratio] 24.05 kg/z0LrlfuhAriana Taylor Other [employer] Other 06-20-2023 10:15-0400Body quxogy50.59 kgOdalisrigo Taylor Other [employer] Other 06-20-2023 10:15-0400Diastolic blood yogegccr93 mm[Hg] Ariana Taylor Other [employer] Other 06-20-2023 10:15-0400Systolic blood yohkkemq443 mm[Hg] Ariana Taylor Other [employer] Other 02-20-2023 16:00-0500Body ofxsjg241.64 cmAriana Taylor Other [employer] Other 02-20-2023 16:00-0500Body mass index (BMI) [Ratio] 30.18 kg/v9KmrntgAriana Taylor Other [employer] Other 02-20-2023 16:00-0500Body aiwmcl84.82 kgAriana Taylor Other [employer] Other 02-20-2023 16:00-0500Diastolic blood ybvykmsd97 mm[Hg] Ariana Taylor Other [employer] Other 02-20-2023 16:00-9727CzU9% (BldA) [Mass fraction]98 % Ariana Taylor Other [employer] Other 02-20-2023 16:00-0500Systolic blood nvdjjysq384 mm[Hg] Ariana Taylor Other [employer] Other 02-16-2023 15:45-0500Body shqcru976.64 cmAriana Taylor Other [employer] Other 02-16-2023 15:45-0500Body mass index (BMI) [Ratio] 30.18 kg/l8SvyqqvAriana Taylor Other [employer] Other 02-16-2023 15:45-0500Body uweiyk28.82 kgAriana Taylor Other [employer] Other 02-16-2023 15:45-0500Diastolic blood nfbdwovp73 mm[Hg] Ariana Taylor Other [employer] Other 02-16-2023 15:45-5947TwV7% (BldA) [Mass fraction]97 % Ariana Taylor Other [employer] Other 02-16-2023 15:45-0500Systolic blood rkpdbwjo172 mm[Hg] Ariana Taylor Other [employer] Other Encounters Encounter DateEncounter TypeCare ProviderFacilityStart: 06-08-2025 End: 80-57-5616viyciuxtpxAhqjka E Braun MD Work Phone: [facility] Work Phone: Start: 06-08-2025 End: 60-30-6133Tbbhded encounter procedureAriana Taylor MD-[facility] Work Phone: Start: 04-30-2025 End: 70-57-9264tagaqqcnmxTlchkf E Braun MD Work Phone: [facility] Work Phone: Start: 04-30-2025 End: 95-71-9111Eqadicx encounter procedureAriana Taylor MD-[facility] Work Phone: Start: 12-31-2024 End: 38-26-4507gnvgkwerqlGuemfvzbzMain [facility] Work Phone: Start: 12-31-2024 End: 74-81-8928Zaxqvrj encounter procedureFircraigs Physician Group-[facility] Work Phone: Start: 84-67-0697Kiptyel encounter statusOhio State University Wexner Medical Centertart: 03-25-2024 End: 00-91-0977qtqrqcxowmHggvikcraMain Campus Medical Center Work Phone: Start: 03-25-2024 End: 05-76-2023Mkubjec encounter procedureUnc Health Physician Group-[facility] Work Phone: Start: 07-02-4448Wki-patient / Non-visitUnc Health Physician Group-[facility] Professional [employer] Work Phone: Start: 11-09-2023 End: 89-20-9637buinidabeuUaqbmb Braun Other [employer] Other Start: 84-07-5835Dijurdrrb encounterMarcia St. Elias Specialty Hospitaltart: 09-27-2023 End: 57-39-4361zptecsxvtjDethio Claudia Other [employer] Other Start: 13-41-8405Ocxrqrqfg encounterMarcia St. [facility] Specialty Hospitaltart: 09-04-2023 End: 95-85-9523zrfieacnjsEAPJL M ALLENNot AvailableStart: 08-21-2023 End: 92-21-0300xfgtxnmjbrObphbf Claudia Other [employer] Other Start: 50-47-0858Rxcgtujkz encounterMarcia St. [facility] Specialty Hospitaltart: 06-04-2023 End: 59-15-9983lwqxlspksmHjcfzk Claudia Other [employer] Other Start: 01-36-4764Sczeidgdj encounterMarcia Flor [facility] ClinicStart: 05-07-2023 End: 27-01-0660hmpbqefgazQDKPMJFW O BRENNECKEFacility:[facility] Start: 05-07-2023 End: 40-14-6053Biukxck encounter procedureShad Rouse MD Work Phone: NeurologyComment on above:Peroneal neuropathy, right (Primary Dx)Start: 72-30-6738Prgftwoju encounterShad Rouse MD Work Phone: NeurologyComment on above:Received Outside Medical RecordsStart: 04-23-2023 End: 89-46-6523ahpqadylsuVybsiu Claudia Other [employer] Other Start: 15-97-1819Npmcwmetw encounterMarcia AlizaMission Hospital ClinicStart: 04-18-2023 End: 75-94-5835htcsjickegDinrvw Claudia Other [employer] Other Start: 49-40-6294Yimqxknxv encounterMarcia Flor [facility] ClinicStart: 04-10-2023 End: 47-96-0771kwhyvbntpwSjbzbz Taylor Other [employer] Other Start: 94-90-3129Khrvut outpatient visit 15 minutes Arianajulius AbramsMission Hospital ClinicStart: 02-01-2023 End: 33-68-7061fyasjskrtrCrhxkr Taylor Other [employer] Other Start: 78-96-6607Vmmttjewo encounterMarcia Flor [facility] ClinicStart: 12-11-2022 End: 16-89-3225wihendzyamOcivua Taylor Other [employer] Other Start: 95-50-8841Qutfud outpatient visit 15 minutes Ariana Ray [facility] ClinicStart: 76-45-4803Wysoxbqhl encounterMarrigo Michelle [facility]otart: 12-07-2022 End: 64-23-5478qalezzcnptDU ARIANA TAYLORFacility:I4Zrefr: 18-78-4013Lvmytl outpatient visit 15 minutesMarrigo Michelle [facility] ClinicStart: 11-28-2022 End: 00-18-2261mhlfbdqyrxFkpcul Braun Other [employer] Other Start: 09-34-1264Zkyuesbgo encounterMarrigo Michelle [facility]landotart: 44-96-9070Qiaqbjrfr for general adult medical examination without abnormal findingsDR ARIANA Palomino [facility] Start: 11-18-2022 End: 48-05-0029drkpwitaxwQL ARIANA TAYLORFacility:E6Ifjie: 11-18-2022 End: 47-07-8190Ynhnglkpu for general adult medical examination without abnormal findingsDR ARIANA TAYLORFacility:U7Sjjde: 31-21-1530Bymkg health examination Ariana Claudia Other [employer] Other Start: 04-28-2022 End: 88-00-2786pkpxmtmzpuVA NELSON LAMPEFacility:M8Hzesx: 03-03-2022 End: 52-06-7773smssbzqpmlKN ARIANA Rolanda TAYLORFacility:G5Hfylk: 02-09-2022 End: 58-00-4748Fci Drop Milind Peoples [facility] Start: 01-28-2022 End: 07-51-7393Muxzwbbfp department patient visitLake County Memorial Hospital - Westtart: 11-07-2018 End: 48-21-7347Evbsgbi encounter procedureDEFAULT PHYSICIANFacility:[facility] Procedures DateProcedureProcedure DetailPerforming ClinicianStart: 32-86-4851Zeibvaxw extraction and insertion of intraocular lensJames Richelle comment on above:leftStart: 97-40-4602Ejtbzdub extraction and insertion of intraocular lensJames Richelle comment on above:rightStart: 27-46-8969Bymhtgpll for malignant neoplasm of breastOdalsicia Claudia Other Start: 52-06-3418Reiiujzgyp test result abnormalMarcia Taylor Other Start: 26-79-9523Meqlw 1996 panel - Serum or Plasma Shad Rouse MD Work Phone: Plan of Treatment DateCare ActivityDetailAuthorStart: 83-85-8662Pglkvgpoy vaccinationSelect Medical Specialty Hospital [facility] Northtart: 43-94-6535UWDHBTYKUA ASSESSMENTDEPRESSION ASSESSMENTSelect Medical Specialty Hospital [facility] Northtart: 59-17-3087MTQNH-19 VACCINE (4 - Pfizer series)COVID-19 VACCINE (4 - Pfizer series)[facility]htart: 74-84-2237JHVKHZVE VACCINE (1 of 2) SHINGRIX VACCINE (1 of 2)[facility]htart: 51-06-1650Nwnxu 1996 panel - Serum or PlasmaLipid ScreeningSelect Medical Specialty Hospital - [facility] Northtart: 44-79-7392TBBBM SCREENLIPID SCREENSelect Medical Specialty Hospital [facility] Northtart: 62-04-8853IYVKDGYTI (FIT-DNA)COLOGUARD (FIT-DNA) [facility]htart: 00-92-4143IespyqmwrilYRLYMHQFEDAJoygqrikt ClinicStart: 00-07-1753NMHKIPSOJF CANCER SCREENINGCOLORECTAL CANCER SCREENINGAv[facility] Start: 44-09-2037CW COLONOGRAPHYCT COLONOGRAPHYSelect Medical Specialty Hospital [facility] Northtart: 2012 DIABETES SCREENDIABETES SCREENSelect Medical Specialty Hospital - [facility] Northtart: 09-68-9499Weurzwyg ScreeningDiabetes ScreeningSelect Medical Specialty Hospital - [facility] Northtart: 59-00-0260NEHEK OCCULT BLOOD FECAL OCCULT BLOODSelect Medical Specialty Hospital - [facility] Northtart: 43-88-5066KAHZTCOQNMPFMIWBWNWHIVYINZ [facility]htart: 04-25-3081ObujufokrkxWhswcfzdy ClinicStart: 22-16-1984XXY TESTINGHPV TESTINGSelect Medical Specialty Hospital [facility] Northtart: 92-48-9526XQF TESTINGPAP TESTING [facility] Northtart: 53-91-0579Wkwca microalbumin profileAvita Health System Galion Hospital Start: 17-55-5322AOAHXRGBZ C SCREENINGHEPATITIS C SCREENINGAvita Health System Gal[facility] Hospital Start: 89-67-2229ITU SCREENINGHIV SCREENINGSelect [facility] Northtart: 1965 HEPATITIS B (1 of 3 - 3-dose series)HEPATITIS B (1 of 3 - 3-dose series) [facility]htart: 47-62-5916Sisonlnaf B Vaccine (1 of 3 - 3-dose series) Hepatitis B Vaccine (1 of 3 - 3-dose series)[facility] Northupcentral [facility] abdominal X-rayUniversity Hospitals Samaritan Medical CenterXR Cervical spine [facility] Payers DatePayer CategoryPayerPolicy [id number] [id number] 2..[id number] [id number] 2..[id number] 2..[id number] 2..[id number] 2..[id number]jjuemODQ619U4655499-09-9395Xzatxtb NSA374P29513 Social History DateTypeDetailFacilityTobacco smoking statusUnknown if ever smokedFisher - Sheboygan Medical CenterStart: 01-22-2481Tdj Assigned At BirthFeUniversity Hospitals Elyria Medical Centertart: 04-10-2023 End: 66-54-8481Czyxczy smoking status NHISEx-smokerAvita Health System Galion HospitalHistory of tobacco useCurrent smokerAvita Health System Galion HospitalHistory of tobacco useCigarette Smoker [facility]htart: 57-90-2119Wqkjxdm use and exposureSmokeless tobacco non-userSelect Medical Specialty Hospital - [facility] Northtart: 12-61-0073Dnloyci of Social functionThe Surgical Hospital at Southwoods Score (1-100), lower number is lower ebec91CuigovltaSelect Medical Specialty Hospital - [facility] Northtart: 72-68-5558Iai Assigned At BirthFeMartins Ferry Hospitaltart: 61-40-6235Dqtjkh identityIdentifies as female gender (finding)[facility]htart: 04-19-2023 Sexual orientationHeterosexual (finding)[facility] smoking status NHISTobacco smoking consumption unknownSelect Medical Specialty Hospital - [facility] Northtart: 42-98-7197Lmh Female (finding)[facility] Medical Equipment Procedure CodeEquipment CodeEquipment Original TextEquipment IdentifierDates {[id number]{[id number]{21}[id number] FDAStart: 12-08-2019 {01}[id number]{[id number]{21}[id number] FDAStart: 12-29-2019 Clinical Notes 01-28-2022 to 04-30-2025 Note Date & ZsmiYnkvVlkdfhcd27-40-7629 Evaluation note* Diagnosis Onset Date Resolution Status Admit Date Class 1 obesity with body mass index (BM I) of 33.0 to 33.9 in adult acuteJuly 2024 9:57amType 2 diabetes mellitus with hyperglycemiaacuteJuly 2024 9:57amCervical spondylitis with radiculitisacuteAugust 2024 9:28am [facility] Work Phone: [phone]) [phone] Evaluation note* Encounter Date Diagnosis Assessment Notes Treatment Notes Treatment Clinical Notes Oct, Attention deficit disorder (ADD) in adult (ICD-10 - F98.8) [employer] Other 12-07-2023 Evaluation note* Encounter Date Diagnosis Assessment Notes Treatment Notes Treatment Clinical Notes Sep, Attention deficit disorder (ADD) in adult (ICD-10 - F98.8) [employer] Other 10-31-2023 Evaluation note* Encounter Date Diagnosis Assessment Notes Treatment Notes Treatment Clinical Notes Jul, Attention deficit disorder (ADD) in adult (ICD-10 - F98.8) [employer] Other 08-14-2023 Evaluation note* Encounter Date Diagnosis Assessment Notes Treatment Notes Treatment Clinical Notes May, Attention deficit disorder (ADD) in adult (ICD-10 - F98.8) [employer] Other 07-17-2023 NoteHNO ID: [id number] Author: Shad Rouse MD Service: ? Author Type: Physician Type: Progress Notes Filed: 05/08/2023 6:26 AM Note Text: Impression: This is Ms. Keturah Cook, a 57 year old female who [facility] to the [facility] with the chief complaint [...] team. Shad Rouse MD Staff, Neuromuscular Center [facility] Neurological [place] HPI: This is Ms. Keturah Cook, a 57 year old female who presents to the [facility] Neurology clinic with the chief complaint [...] the service which inc (more content not included)...[facility]07-17-2023 History of Present illness Narrative* Shad Rouse MD - 05/07/2023 10:00 AM EDT Impression: This is Ms. Keturah Cook, a 57 year old female who presents to the [facility] Neurology clinic with the chief complaint [...] team. Shad Rouse MD Staff, Neuromuscular Center [facility]rological [place] HPI: This is Ms. Keturah Cook, a 57 year old female who presents to the [facility] Neurology clinic with the chief complaint [...] chart, examining the patient. documented in this encounterAvita Health System Galion Hospital07-07-2023 Miscellaneous Notes* Telephone Encounter - Jersey Caro - 04/27/2023 11:50 AM EDT Received fax from [facility] with a MRI Brain report dated 04/16/23. Initial appointment with provider is scheduled for 05/07/23. Scanned report into [employer]. documented in this encounterAvita Health System Galion Hospital06-28-2023 Evaluation note* Encounter Date Diagnosis Assessment Notes Treatment Notes Treatment Clinical Notes Mar, Abnormal brain MRI (ICD-10 - R90 .89) Mar,Right leg weakness (ICD-10 - R29.898) Mar,Frequent headaches (ICD-10 - R51.9) [employer] Other 06-20-2023 Evaluation note* Encounter Date Diagnosis [...] Mar,Right leg weakness (ICD-10 - R29.898)As above. [employer] Other 04-13-2023 Evaluation note* Encounter Date Diagnosis Assessment Notes Treatment Notes Treatment Clinical Notes Jan, Attention deficit disorder (ADD) in adult (ICD-10 - F98.8) [employer] Other 02-20-2023 Evaluation note* Encounter Date Diagnosis [...] resumes/continues for MRI mentioned in Xray report [employer] Other 02-16-2023 Evaluation note* Encounter Date Diagnosis Assessment Notes Treatment Notes Treatment Clinical Notes Nov, Left cervical radiculopathy (ICD -10 - M54.12) Check Xray for possible pinched nerve. Pain was so severe on 12/05, she almost went to ER. Will add meds and consider PT based on xray results. [employer] Other 04-09-2022 NotePROCEDURE: XR FINGER RIGHT (MIN [...] Signed by: Kale Cheung MD 01/28/22 Final resultAcmc Healthcare SystemEvaluation + Plan note No data available for this section [facility] HospitalEvaluation noteNo InformationNort [employer] Other Evaluation note* Diagnosis Peroneal neuropathy, right- Primary documented in this encounter [facility] HospitalEvaluation note* Diagnosis Onset Date Resolution Status Adult ADHD acuteCervical spondylitis with radiculitisacute [facility] Work Phone: Evaluation note* Diagnosis Onset Date Resolution Status Admit Date Adult ADHD acuteMarch 2024 10:13amLeft flank painacuteMarch 2024 10:13amType 2 diabetes mellitus with hyperglycemiaacuteMarch 2024 10:13am [facility] Work Phone: Evaluation noteNo assessment information available [facility] Work Phone: History general Narrative - Reported* Type Description Date Medical History Gout, unspecified Medical HistoryUncontrolled type 2 diabetes mellitus without complication, without long-term current use of insulinMedical HistoryInsomniaMedical History Elevated liver enzymesMedical HistoryDepression, majorMedical HistoryAnxiety and depressionMedical HistoryAbscess of buttock, leftMedical HistoryPilonidal cyst Medical HistoryLeft lateral knee painMedical HistoryExertional shortness of breathMedical HistoryAttention deficit disorder (ADD) in adultSurgical History Bednkcvbari8455Uqvctxio NlswisqJfvfxmhzzrcf7424Ikmvbczf Historymultiple LaparoscopiesSurgical SzaaicbElxst1386Lhkrmgpj HistoryTubal kgpiqyea7329Bhrgedir HistoryCataract surgery qaxs1207Dwcgreqqsptwmwy HistorySEE SURGICAL HX [employer] Other Hospital Discharge instructions No data available for this section [facility] HospitalReason for referral (narrative)No reason for referral information availableC[facility] Clinic [facility] Work Phone: Summary Purpose Family History Relationship [...] Abnormal brain MRI ( R90.89) Referral Organization [facility] kaur Referring Provider First Name Ariana Referring Provider Last Name Claudia Referring Provider Specialty Family [facility] Referred Organization [facility] Referred Provider Kevin Pedroza Referred Address [address],[place], [place],[address] Referred Provider Specialty Neurology Referral Priority Routine [...] section and content) DATE CREATED AUTHOR 11/15/2018 [facility] DATE CREATED AUTHOR AUTHOR'S ORGANIZ ATION 01/30/2022 [facility] DATE CREATED AUTHOR AUTHOR'S ORGANIZ ATION 02/15/2022 [facility] DATE CREATED AUTHOR AUTHOR'S ORGANIZ ATION 12/14/2022 [facility] [facility] DATE CREATED AUTHOR AUTHOR'S ORGANIZ ATION 07/07/2023 [facility] DATE CREATED AUTHOR AUTHOR'S ORGANIZ ATION 09/05/2023 [facility] EPIC REASON FOR VISIT (unrecogniz [...] or prosecute any alcohol or drug abuse patient.[facility] Hospital[facility] the event this information is protected by the Federal Confidentiality of Alcohol and Drug Abuse Patient Records regulations: The Federal rules restrict any use of the information to criminally investigate or prosecute any alcohol or drug abuse patient.[facility] Care Teams (unrecognized sec tion and content) Team Status: Active Member Role Status Dates Ariana Taylor MD Primary Care Provider Active Team Status: Inactive Member Role Status Rubio Taylor MD Primary Care Provide r, Attending Provider Active Start: December 31, 2024 End: December 31, 2024Team MemberRelationshipSpecialtyStart DateEnd Date Ariana Taylor MD [address] [place] [id number] PCP - General05/25/09Team MemberRelationshipSpecialtyStart DateEnd Date Ariana Taylor MD [address] [place] [id number] PCP - General05/25/09 Team Status: Active Member [...] BE BASED ON THE PRIMARY CLINICAL RECORDS. [facility] [employer] [facility]. provides no warranty or guarantee of the accuracy or completeness of information in this document.
== END 2025-10-18 15:38 | disposition home or self-care (01) ==
LOC: LAB 15:37
PROVIDERS: PCP Family Medicine; Visit Provider Urology
DX: N20.0 Calculus of kidney (principal)
CPT/HCPCS: 82365